=== PATIENT | male | born 1940 | race Caucasian/White ===

== ENCOUNTER → 2016-04-27 | Outpatient (REF) | payer MEDICARE, OTHER ==
[~2016-04-27] MED LIST: AMLO10TA2 PO; ASPI81CH PO; CIPR500T89 PO; DOXY100T16 PO; FOLI1TAB2 PO; HYDR-3713 PO; K-TA10TA2 PO; LEVA750T PO; LISI10TA4 PO; MAG400TA PO; MEMA1TAB2 PO; METF500T PO; MULT1TAB8 PO; MYSO50TA5 PO; OMEP20CA3 PO; SINE25TA5 PO; TYLE325T5 PO; VENL75TA2 PO; VENL75TA3 PO
== END ==
LOC: M SMT 16:48
PROVIDERS: ATTEND Nurse Practitioner Women's Health
DX: N39.0 Urinary tract infection, site not specified (principal)

== ENCOUNTER → 2016-07-16 | Outpatient (CLI) | payer MEDICARE, OTHER ==
--- NOTE | 2016-07-17 05:48 | REP ---
REASON: Followup carotid arterial disease. Comparison examination 04/14/2015 showed a 16-49% stenosis of the right internal carotid artery and a 0-15% stenosis in the left internal carotid artery. Once again, there is echogenic material seen in the carotid arteries some of which cast an acoustic shadow and seemingly unchanged from the prior exam. RIGHT LEFT CCA Systolic 100.0 100.9 CCA Diastolic 14.6 16.3 ICA Systolic 64.5 51.9 ICA Diastolic 14.8 14.1 ICA/CCA Ratio 0.65 0.51 Analysis of the spectral wave forms again shows mild to moderate bilateral internal carotid arterial spectral broadening. Antegrade flow is again seen in the left vertebral artery while the right vertebral artery is not visualized ultrasonographically. IMPRESSION: According to the NASCET consensus criteria, there is less than 50% stenosis in both internal carotid arteries secondary to both calcified and noncalcific plaque formation. There is nonvisualization of the right vertebral artery which represents a change from the prior exam and needs to be further evaluated. Consider bilateral carotid arterial MRA. If the patient is incompatible with MRA, then consider bilateral carotid CTA. Signed by Bryan Villegas DO 07/17/2016 01:59 P
== END ==
LOC: M RAD 11:46
PROVIDERS: ATTEND Nurse Practitioner
DX: I65.23 Occlusion and stenosis of bilateral carotid arteries (principal); Z95.828 Presence of other vascular implants and grafts; Z98.890 Other specified postprocedural states
CPT/HCPCS: 93880; G0463

== ENCOUNTER 2016-09-05 14:31 | Inpatient (IN) | payer MEDICARE, OTHER ==
[~2016-09-05] VITALS: Ht 190.5 cm; Wt 89.1 kg
[~2016-09-05 14:31] MED LIST changes: +CIPR-249 PO; -CIPR500T89 PO; -FOLI1TAB2 PO; +FOLI1TAB4 PO; -LEVA750T PO; +LEVA750T7 PO; -METF500T PO; +METF500T13 PO
[2016-09-05] MEDS ORDERED: ATOR40TA75 PO (14:55)
[2016-09-05] MEDS ORDERED: TELM1TAB PO (14:55)
[2016-09-05] MEDS ORDERED: SINE25TA5 PO (14:55)
[2016-09-05] MEDS ORDERED: FOLI1TAB4 PO (14:55)
[2016-09-05 15:51] LABS: ALBUMIN 3.1 GM/DL (3.2-5.2); ALBUMIN/GLOBULIN RATIO 0.84 (1.00-1.93); BILIRUBIN,DIRECT 0.4 MG/DL (0.0-0.2); CALCIUM LEVEL 8.2 MG/DL (8.8-10.2); CREATININE FOR GFR 2.54 MG/DL (0.70-1.30); GLOMERULAR FILTRATION RATE 26.3 (>42); TOTAL PROTEIN 6.8 GM/DL (6.4-8.2)
[2016-09-05 15:57] LABS: ADD MANUAL DIFFER YES; MEAN CORPUSCULAR HEMOGLOBIN 32.9 pg (27.0-33.0); MEAN CORPUSCULAR VOLUME 96.8 fl (80.0-96.0); PLATELET COUNT, AUTOMATED 175 k/mm3 (150-450); RED CELL DISTRIBUTION WIDTH 12.8 % (11.5-14.5); WHITE BLOOD COUNT 14.4 K/mm3 (4.0-10.0)
[2016-09-05 16:08] LABS: POTASSIUM SERUM 5.3 MEQ/L (3.5-5.1)
--- NOTE | 2016-09-05 16:12 | REP ---
Clinical: S I R S. Technique: AP and lateral views. Comparison: 04/06/2015. Findings: Diffuse chronic interstitial changes. Superimposed basilar atelectasis/infiltrate cannot be excluded along with small pleural reaction. Mediastinum and cardiac silhouette stable. No pneumothorax. Skeletal structures demonstrate degenerative changes. Impression: Chronic changes. Cannot exclude superimposed basilar atelectasis or small pleural reaction. Signed by Gavino Hancock MD 09/05/2016 04:04 P
[2016-09-05] MEDS ORDERED: NS 1,000 ML IV ONE (16:30)
[2016-09-05 16:51] LABS: BANDS 12 % (< 11)
[2016-09-05] MEDS: NS 1,000 ML IV SCH ×2 (17:21→23:35)
--- NOTE | 2016-09-05 17:32 | REP ---
Urinary tract sonography: History: Renal failure. Comparison CT study is from 03/01/2016. Sonographic findings: Scanning at the level of the urinary bladder demonstrates a Chung catheter noted. The balloon of the Chung catheter is positioned quite high, at or superiorly adjacent to the fundal region of the urinary bladder. It is difficult to confirm that the Chung balloon is intraluminal. There is some echogenic debris within the bladder lumen. Renal cortical echogenicity pattern is normal and renal contours are smooth on both sides. No hydronephrosis is seen on either side. The right kidney measures 9.5 x 5.0 x 4.4 cm. Left renal dimensions are 11.8 x 4.4 x 6.1 cm. No renal mass, cyst or calculus is appreciated. Impression: 1. No evidence of hydronephrosis. 2. The balloon of the Chung catheter is positioned quite high, at or superiorly adjacent to the fundal region of the urinary bladder. It is difficult to confirm that the Chung balloon is intraluminal. Echogenic debris within the bladder lumen. Signed by Shabbir Miller MD 09/05/2016 08:27 P
[2016-09-05] MEDS ORDERED: VITMTA PO (17:49)
[2016-09-05] MEDS ORDERED: LISI10TA4 PO (17:49)
[2016-09-05] MEDS ORDERED: AMLO10TA2 PO (17:49)
[2016-09-05] MEDS ORDERED: VENL75CA47 PO (17:49)
[2016-09-05] MEDS ORDERED: ASPI81TA24 PO (17:49)
[2016-09-05] MEDS ORDERED: CEFEPIME HCL 1 GM in D5W MINI-BAG PLUS 50 ML IV ONE (18:00)
[2016-09-05] MEDS ORDERED: DEXTROSE 50% 50 ML SYRINGE IV PRN (19:45)
[2016-09-05] MEDS ORDERED: VANCOMYCIN HCL 1,000 MG, VIAL MATE ADAPTER 1 EACH in D5W 250 ML IV ONE (20:00)
[2016-09-05] MEDS: HumaLOG INSULIN (NovoLOG) PER UNIT SC SCH (20:56)
[2016-09-05] MEDS: PRIMIDONE 50 MG TAB PO SCH (21:16)
[2016-09-05] MEDS: SINEMET 25-100 MG TAB PO SCH (21:17)
[2016-09-05] MEDS: HEPARIN SOD (PORCINE) 5000 UNITS/ML VIAL SC SCH (22:09)
[2016-09-06 03:20] VITALS: BP 153/79
[2016-09-06 05:24] LABS: BASO % 0.1 % (0.0-1.0); EOS % 0.4 % (0.0-3.0); LARGE UNSTAINED CELL # 0.2 K/mm3 (0.0-0.4); LARGE UNSTAINED CELL % 1.7 % (0.0-4.0); LYMPH # 0.4 K/mm3 (1.5-4.5); LYMPH % 2.1 % (24.0-44.0); MEAN CORPUSCULAR HEMOGLOBIN 33.7 pg (27.0-33.0); MEAN CORPUSCULAR HGB CONC 35.2 g/dl (32.0-36.5); MEAN CORPUSCULAR VOLUME 95.6 fl (80.0-96.0); MONO # 0.5 K/mm3 (0.0-0.8); MONO % 4.9 % (0.0-5.0); NEUTROPHILS # 10.1 K/mm3 (1.8-7.7); NEUTROPHILS % 90.8 % (36.0-66.0); PLATELET COUNT, AUTOMATED 118 k/mm3 (150-450); RED CELL DISTRIBUTION WIDTH 12.7 % (11.5-14.5); WHITE BLOOD COUNT 11.2 K/mm3 (4.0-10.0)
[2016-09-06 05:58] LABS: ALBUMIN 2.8 GM/DL (3.2-5.2); ALBUMIN/GLOBULIN RATIO 0.65 (1.00-1.93); BILIRUBIN,TOTAL 0.9 MG/DL (0.2-1.0); CALCIUM LEVEL 8.4 MG/DL (8.8-10.2); CREATININE FOR GFR 2.03 MG/DL (0.70-1.30); GLOMERULAR FILTRATION RATE 34.1 (>42); POTASSIUM SERUM 4.5 MEQ/L (3.5-5.1); TOTAL PROTEIN 7.1 GM/DL (6.4-8.2)
[2016-09-06] MEDS: HEPARIN SOD (PORCINE) 5000 UNITS/ML VIAL SC SCH ×3 (06:00→21:13)
[2016-09-06] MEDS: NS 1,000 ML IV SCH ×3 (06:20→21:11)
[2016-09-06] MEDS: ACETAMINOPHEN TAB 650MG DOSE (2X325MG) PO PRN ×2 (07:05→13:56)
--- NOTE | 2016-09-06 07:23 | HPE ---
DATE OF ADMISSION: 09/05/2016 PRIMARY CARE PROVIDER: Dr. Denton CHIEF COMPLAINT: Generalized weakness. HISTORY OF PRESENT ILLNESS: 75-year-old male with a history of sepsis and urinary tract infection (UTI) as well as urinary retention. He does self catheterizations daily. He was brought in by the family to be evaluated for progressive weakness. His son is at the bedside. He reports a few days history of malaise and progressive weakness to the point the patient was having difficulty standing and shaking significantly. There was no complaint of fever, nausea, vomiting, diarrhea, chest pain, palpitations, cough. REVIEW OF SYSTEMS: Ten point systems were assessed and negative except as listed above in history of present illness (HPI). PAST MEDICAL HISTORY (includes): 1. Non-insulin dependent diabetes mellitus. 2. Hypertension. 3. Parkinson's disease. 4. Dementia. 5. Urinary retention as mentioned above. 6. Urinary tract infection. 7. Atrial fibrillation, chronic. The patient is not anticoagulated due to history of altered mental status and unsteady gait. PAST SURGICAL HISTORY: 1. Hernia repair. 2. Left knee surgery. FAMILY HISTORY: The patient has three children, two living sons, one from testicular cancer. SOCIAL HISTORY: He does not smoke, abuse alcohol or illicit drug use. He is a , lost his this year in April 2016. He has been living alone since then, but has an aide that helps him with house chores and cooking. ALLERGIES TO MEDICATIONS: None. HOME MEDICATIONS (includes): - lisinopril 10 mg once a day - metformin 500 mg by mouth twice a day - potassium chloride 10 mEq once a day - venlafaxine 75 mg twice daily - memantine 10 mg by mouth twice a day - amlodipine 10 mg once a day - baby aspirin - carbidopa/levodopa 25/100 mg one tablet, he takes 1.5 tablets four times a day - multivitamin one tablet daily - omeprazole 20 mg once a day - primidone 50 mg twice a day PHYSICAL EXAMINATION: VITALS: Blood pressure 116/55. Pulse 82. Respiratory rate 18. Oxygen saturation 97% in room air. Temperature 98.8 degrees Fahrenheit. GENERAL: He is awake, slightly lethargic, but arousable. Able to communicate. Follows commends. He is cold and shivering, whole body shaking. HEENT: Pupils equal, round and reactive to light. Extraocular muscles intact. Anicteric sclerae. Mucous membranes dry. CARDIOVASCULAR SYSTEM: S1, S2 present with a regular rate. LUNGS: Clear to auscultation bilaterally. GI: Abdomen is soft, nontender, nondistended. Bowel sounds are normal. MUSCULOSKELETAL SYSTEM: No edema, cyanosis or calf tenderness. Pulses are palpable in all extremities. SKIN: Warm, dry and not cyanotic. Without rash, petechiae or ecchymosis. NEUROLOGY: Deferred. Patient is able to move his extremities. LABS: Hematology: White blood cell count 14.4, hemoglobin 13, hematocrit 37 and platelets 175. Bands of 12%. Chemistry: Sodium 129, potassium 5.3, chloride 97, bicarbonate 20, BUN 42, creatinine 2.54, fasting glucose 300, lactic acid initial 6.5 and repeat 4.3, calcium 8.2. Liver function tests (LFTs) within normal limits. CRP 25. Albumin 3.1. Urinalysis: Urine color luke, cloudy, +2 protein, negative glucose, trace ketones, +2 blood, negative nitrites, negative bilirubin, leukocyte esterase +2, WBC 116, RBC 3, bacteria 3+. IMAGING STUDIES: Chest x-ray shows just chronic changes. Renal ultrasound with no evidence of hydronephrosis noted. ASSESSMENT: 75-year-old male who presents with generalized weakness and showing signs of urine infection and blood infection as well as dehydration and impaired kidney function. IMPRESSION: 1. Sepsis. 2. Bandemia. 3. Cystitis. 4. Hyponatremia. 5. Mild hyperkalemia. 6. Acute tubular necrosis. 7. History of non-insulin dependent diabetes mellitus, uncontrolled. 8. History of Parkinson's and dementia. 9. History of urinary retention. PLAN: The patient is admitted to the progressive care unit (PCU). Continue antibiotics, Cefepime and vancomycin. Pharmacy consulted for vancomycin management. Continue hydration, saline at 150 mL an hour. Nephrology consulted for the a.m. Awaiting culture results. The patient has a Chung placed to monitor ins and outs. Home medications are resumed except for lisinopril, metformin. Follows lytes levels in a.m. Deep vein thrombosis (DVT) prophylaxis with compression stockings and subcutaneous heparin.
[2016-09-06 08:00] VITALS: BP 133/64
[2016-09-06 08:08] LABS: VENOUS BASE EXCESS -6.4 (-2.0-2.0); VENOUS O2 SATURATION 99.1 % (60.0-80.0); VENOUS PARTIAL PRESSURE CO2 22.2 mmHg (38.0-50.0); VENOUS PARTIAL PRESSURE O2 154.1 mmHg (30.0-50.0); VENOUS STANDARD HCO3 19.3 MEQ/L; VENOUS TOTAL CO2 16.3 MEQ/L (24.0-28.0)
[2016-09-06] MEDS: MULTIVITAMINS/MINERALS THERAP 1 TAB PO SCH (08:09)
[2016-09-06] MEDS: ASPIRIN 81 MG ENTERIC TAB PO SCH (08:09)
[2016-09-06] MEDS: PRIMIDONE 50 MG TAB PO SCH ×2 (08:09→21:11)
[2016-09-06] MEDS: OMEPRAZOLE 20 MG CAP PO SCH (08:09)
[2016-09-06] MEDS: SINEMET 25-100 MG TAB PO SCH ×4 (08:09→21:11)
[2016-09-06] MEDS: amLODIPine 10 MG TAB PO SCH (08:10)
[2016-09-06] MEDS: HumaLOG INSULIN (NovoLOG) PER UNIT SC SCH ×4 (08:11→21:00)
[2016-09-06] MEDS ORDERED: CEFEPIME HCL 1 GM in D5W MINI-BAG PLUS 50 ML IV SCH (09:00)
[2016-09-06 12:00] VITALS: BP 151/70
--- NOTE | 2016-09-06 14:33 | IPNPDOC ---
Text Note Date of Service The patient was seen on 09/06/16. NOTE Subjective: Patient is awake and alert. Follows commands. States he feels much better. Denies any chest pain/hospital/palpitations. No nausea/vomiting/ abdominal pain. Objective: Vitals: (see below) General: No acute distress, laying comfortably in bed. HEENT: Moist mucous membranes. Neck: No JVD or lymphadenopathy Cardiac: RRR, No murmurs Pulm: Clear to auscultation b/l. No wheezing, rhonchi Abd: NT/ND + BS Ext: No edema or cyanosis Alert and oriented 3. Following commands. Moving all extremities. Labs (see below) Images: Assessment/Plan 1. Severe sepsis secondary to urinary source from self-catheterization. Patient with gram-negative heide bacteremia. Presenting with metabolic encephalopathy and as a generalized weakness. The patient was also noted to have leukocytosis, bandemia, lactic acid doses of 6, which is trending down to 1.8. We'll continue broad-spectrum antibiotics pending cultures and IV fluids. Repeat blood cultures tomorrow. 2. Hyponatremia- likely hypovolemic from being septic. Improved with IV fluids. 3. Hyperkalemia- improved. 4. Acute kidney injury- likely secondary to #1. Improving with IV fluids. 5. Nzg-jtavdvq-lchmntudq diabetes mellitus- continue sliding scale insulin 6. History of Parkinson's disease and dementia 7. History of urinary retention and UTIs - self catheterizes. Started on Flomax DVT prophy: Heparin subcutaneous Prognosis guarded. I discussed the above with the patient's son Jose Raul. Patient is a DNR. VS,Heather, I+O VS, Heather, I+O Laboratory Tests 09/05/16 14:50 Red Blood Count 3.85 L, Mean Corpuscular Volume 96.8 H, Mean Corpuscular Hemoglobin 32.9, Mean Corpuscular Hemoglobin Concent 34.0, Red Cell Distribution Width 12.8 09/06/16 04:45 Red Blood Count 3.76 L, Mean Corpuscular Volume 95.6, Mean Corpuscular Hemoglobin 33.7 H, Mean Corpuscular Hemoglobin Concent 35.2, Red Cell Distribution Width 12.7, Neutrophils (%) (Auto) 90.8 H, Lymphocytes (%) (Auto) 2.1 L, Monocytes (%) (Auto) 4.9, Eosinophils (%) (Auto) 0.4, Basophils (%) (Auto ) 0.1, Neutrophils # (Auto) 10.1 H, Lymphocytes # (Auto) 0.4 L, Monocytes # ( Auto) 0.5, Eosinophils # (Auto) 0.0, Basophils # (Auto) 0.0, Calcium Level 8.4 L , Aspartate Amino Transf (AST/SGOT) 50 H, Alanine Aminotransferase (ALT/SGPT) 8 L, Alkaline Phosphatase 99, Total Bilirubin 0.9, Total Protein 7.1, Albumin 2.8 L Vital Signs Date Time Temp Pulse Resp B/P (MAP) Pulse Ox O2 Delivery O2 Flow Rate FiO2 09/06/16 12:00 98.8 107 20 151/70 (97) 96 Room Air I&O- Last 24 Hours up to 6 AM 09/06/16 05:59 Intake Total 1320 ml Output Total 2250 ml Balance -930 ml VINCENT SHAFER MD Sep 06, 2016 14:33
[2016-09-06 16:00] VITALS: BP 132/70
[2016-09-06] MEDS: TAMSULOSIN 0.4 MG CAP PO SCH (17:27)
--- NOTE | 2016-09-06 19:15 | CR ---
DATE OF CONSULTATION: 09/06/2016 REQUESTING PHYSICIAN: Dr. Navneet Ríos CONSULTING PHYSICIAN: Dr. Montemayor REASON FOR CONSULTATION: Management of acute renal failure and hyponatremia. CHIEF COMPLAINT: The patient was brought into the emergency room yesterday because of generalized weakness. HISTORY OF PRESENT ILLNESS: Mr. Ja Aguilar is a 75-year-old male with a past medical history of most likely chronic kidney disease stage 3. He had a baseline creatinine of around 1 as of February 2016. He has a history of Parkinson's disease and urinary retention. He has to self catheterize himself daily for urinary retention. Patient was brought in by his family for progressive weakness, lethargy, confusion, decreased oral intake, inability to walk and shaking. Patient was found to have acute renal failure yesterday with a creatine of 2.5 and sepsis along with lactic acidosis which as attributed to urinary tract infection. Patient was given broad spectrum antibiotics. He was started on IV fluid hydration. Initial blood cultures came back positive for gram negative rods. Nephrology service was called for further help in the management of acute renal failure and multiple electrolyte abnormalities. PAST MEDICAL HISTORY: Chronic kidney disease stage 3, baseline creatinine of 1, hypertension, Parkinson's disease, non-insulin dependent diabetes mellitus, dementia, chronic urinary retention, requiring daily catheterization, history of urinary track infection in the past, chronic atrial fibrillation not on anticoagulation. PAST SURGICAL HISTORY: History of hernia repair, history of left knee surgery. ALLERGIES: No known drug allergies. FAMILY HISTORY: No significant family history of end stage renal disease requiring hemodialysis. SOCIAL HISTORY: Patient lives alone but he has a home health aide that helps him with activities of daily life. There is no history of smoking, elicit drug abuse, or alcohol abuse. REVIEW OF SYSTEMS: CONSTITUTIONAL: Patient denies any fevers or chills but he reports weakness. EYES: He denies any blurry vision or double vision. ENT: He denies any dysphagia or wear discharge. CARDIOVASCULAR: He denies any chest pain or palpitations. RESPIRATORY: He denies any cough or shortness of breath. GI: He denies any pain in the abdomen, constipation or diarrhea. GENITOURINARY: He reports urinary retention and requires daily Chung catheterization. MUSCULOSKELETAL: He denies any muscle aches and pain. CENTRAL NERVOUS SYSTEM: He reports history of Parkinson's disease. HEMATOLOGY/ONCOLOGY: HE denies any history of anemia or easy bruising. SKIN: He denies any rashes or ulcers. All of the review of system is found to be negative. PHYSICAL EXAMINATION: GENERAL: Patient is awake, alert, and oriented times two, laying in bed. No apparent distress. VITAL SIGNS: Temperature 98.5 degree Fahrenheit, blood pressure 133/64, pulse 111, respiratory rate 20, saturating 93% on room air. HEAD AND NECK: Extraocular muscles intact. Pupils equally round and reactive to light. Mucous membranes are slightly dry. NECK: Supple with no jugular venous distension (JVD). CARDIOVASCULAR: S1, S2, irregularly irregular heart rate. No murmur, rub, or gallop. RESPIRATORY: Chest clear to auscultation bilaterally. Bilateral equal air entry, no rales or rhonchi. GI: Abdomen is soft, positive bowel sounds, nontender, no ascites, no organomegaly. GENITOURINARY: Patient has an indwelling Chung catheter at this time with kaia pus int Chung along with urine. MUSCULOSKELETAL: Pulses are 2+ in the periphery. No edema of the bilateral lower extremities. CENTRAL NERVOUS SYSTEM: Patient is oriented times two. He follows commands and moves his extremities. SKIN: No rashes or ulcers. LYMPH: No significant cervical or inguinal lymphadenopathy. LAB REVIEW: CBC showed a WBC of 11.2 today, it was 14.4 yesterday, hemoglobin 12.7, platelets 118. Urinalysis done yesterday showed it was cloudy, 2+ leukocyte esterase, 116 WBC, 3+ bacteria, ABG done today morning showed a pH 7.46, PCO2 22, PO2 154, bicarbonate 15.6, oxygen saturation 99%. BMP this morning showed sodium 135, it was 129 yesterday, potassium 4.5, chloride 103, bicarbonate 21, BUN 43, creatinine 2.03, glucose 138, lactate has improved to 1.8. It was 6.5 yesterday, albumin 2.8. Microbiology: Blood cultures 2/2 are growing gram negative rods. Urine culture is pending. IMAGING: A renal ultrasound done yesterday showed no evidence of hydronephrosis. Chest x-ray done yesterday showed chronic changes with some basilar atelectasis. CURRENT INPATIENT MEDICATIONS: Patients medications were all reviewed by me that includes: - cefepime 1 gram IV daily - normal saline, I changed the rate to 125 mL per hour - vancomycin 1 gram IV given yesterday - amlodipine 10 mg daily - aspirin 81 mg daily - heparin 5,000 unit every 8 hours - insulin sliding scale - multivitamin - omeprazole 20 mg by mouth daily - Mysoline 50 mg twice a day - Flomax 0.4 mg by mouth daily ASSESSMENT: 75-year-old female with sepsis secondary to urinary tract infection, gram negative heide bacteremia, acute kidney injury along with hyponatremia, and hyperkalemia. PLAN: 1. Acute renal failure. Patients baseline creatinine is 1. Acute renal failure secondary to a combination of use of lisinopril and metformin at home in the setting of sepsis. Continue to hold the lisinopril and metformin. Continue IV fluid hydration. Creatinine is trending down. Patient has a good urine output. Continue to monitor for improvement of renal function. No need of hemodialysis at this time. 2. Sepsis secondary to urinary tract infection and gram negative heide bacteremia. Patient is hemodynamically stable. Lactic acidosis has improved. Continue IV cefepime. Patient was also given one dose of vancomycin yesterday. Will follow up the culture sensitivity and taper down the antibiotics as needed. 3. Hyponatremia. It is hypovolemic hyponatremia. Continue IV fluid hydration. Sodium level is improved from 129 to 135. 4. Hyperkalemia. Potassium level is improving to 4.5 today. Hyperkalemia was secondary to acute renal failure use of lisinopril and hypertension. 5. Lactic acidosis. It was secondary to sepsis and use of Metformin before presentation to the hospital. Metformin is on hold. Patient is adequately hydrated. Lactic acidosis has improved. 6. Chronic urinary retention. Continue the Chung catheter at this time. Continue Flomax 0.4 mg by mouth daily. 7. Parkinson's disease. Continue home dose of Sinemet 1.5 tablet by mouth four times a day. 8. Hypertension. Blood pressure is acceptable at this time. Lisinopril is on hold. Patient has been restarted on amlodipine 10 mg by mouth daily. Thank you for involving us in the care of this patient. We shall be happy to follow the patient along with you tomorrow morning.
[2016-09-06 20:00] VITALS: BP 120/78
[2016-09-06 20:30] VITALS: BP 152/67
[2016-09-06] MEDS: CEFEPIME HCL 1 GM in D5W MINI-BAG PLUS 50 ML IV SCH (22:46)
[2016-09-07] VITALS (7 sets, daily range): BP systolic 106–156; BP diastolic 61–80
[2016-09-07] MEDS: NS 1,000 ML IV SCH ×2 (02:34→10:45)
--- NOTE | 2016-09-07 05:28 | CR ---
DATE OF CONSULTATION: 09/06/2016 REASON FOR CONSULTATION: I was asked to consult by hospitalist evaluation of sepsis of urinary origin. HISTORY OF PRESENT ILLNESS: Mr. Aguilar is a pleasant 75-year-old gentleman who lives alone with help of his son. The patient has a history of urinary retention and straight catheterizes (caths) himself twice a day. He was brought in by his him who noticed that he had been confused with generalized weakness. He had been having a couple days of malaise, difficulty standing, and significantly shaking. He did not have any fever, nausea, vomiting, diarrhea, abdominal pain, chest pain or palpitations. His sons are concerned whether he is doing a good job doing his own straight cath as he is getting older and whether he does his proper hand hygiene. PAST MEDICAL HISTORY: Significant diabetes, hypertension, Parkinson's disease, dementia, urinary retention, urinary tract infection recent admission was in February with culture positive for Staphylococcus epidermidis, chronic atrial fibrillation not on anticoagulation due to mental status changes and unsteady gait. PAST SURGICAL HISTORY: Hernia repair, left knee surgery. FAMILY HISTORY: Son had testicular cancer. SOCIAL HISTORY: Does not smoke or use alcohol. He is a . He lost his in April 2016. He does not drive. His two sons are available to help him. He has Katja dacosta, who helps him with house chores and cooking. ALLERGIES: None. MEDICATIONS: - cefepime 1 gram intravenous (IV) daily - amlodipine 10 mg by mouth daily - aspirin 81 mg by mouth daily - multivitamin one tablet daily - omeprazole 20 mg daily - Flomax 0.4 mg by mouth daily - Humalog sliding scale - Sinemet 25/100 tablets by mouth four times a day - Mysoline 50 mg by mouth twice a day - Tylenol as needed LABORATORY DATA: White count was 14.4 yesterday, today 11.2, hemoglobin 12.7, hematocrit 36, platelets 118, 90% neutrophils, 2% lymphocytes, 4% monocytes. Sodium 135, potassium 4.5, chloride 103, bicarb 21, BUN 43, creatinine 2.03 down from 2.54. His normal creatinine is within normal range, glucose 138, lactic acid down to 1.8 from 6.5 on admission, calcium 8.4, magnesium 0.9, AST 50, ALT 80, alkaline phosphatase 99, total protein 7.1, albumin 2.8. MICROBIOLOGY: Urine cultures pending. Blood cultures have gram-negative rods. IMAGING: Renal ultrasound showed no evidence of hydronephrosis but the balloon of the catheter was positioned quite high and needed to be repositioned. PHYSICAL EXAMINATION: On physical exam, elderly gentleman in no acute distress. Alert, oriented with a little lethargic compared to his baseline. HEART: Normal S1, S2. Irregularly irregular. No murmurs, rubs or gallops appreciated. LUNGS: Clear. No wheezes, rale or rhonchi. ABDOMEN: Soft, nontender. No hepatosplenomegaly. GENITOURINARY (): He has an indwelling Chung catheter with cloudy urine. HEENT: Pupils equal and react. Sclerae anicteric. Mucous membranes are dry. EXTREMITIES: No clubbing, cyanosis or edema. +1 dorsalis pedis pulses. CENTRAL NERVOUS SYSTEM (HANSARD REPORTER): He is oriented times three. Follows commands. SKIN: With rashes. He has some scabs on the toes. IMPRESSION: This is a 75-year-old gentleman who was admitted with sepsis of urinary tract origin. He has gram-negative bacteremia. He is currently on cefepime and has markedly improved. He has developed acute renal failure probably a combination of dehydration and sepsis. The patient has clinically improved. Will plan to de-escalate his therapy based on results of urine culture and blood cultures tomorrow. PLAN: Continue IV cefepime tomorrow until results of culture available. Tomorrow will de-escalate therapy and adjust based on improving creatinine as well. He is currently at the dose of 1 gram every 24 hours for a glomerular filtration rate (GFR) of 26, I would suggest increasing his dose to every 12 hours. MTDD
[2016-09-07 05:42] LABS: BASO % 0.2 % (0.0-1.0); EOS % 0.3 % (0.0-3.0); LARGE UNSTAINED CELL # 0.2 K/mm3 (0.0-0.4); LARGE UNSTAINED CELL % 1.9 % (0.0-4.0); LYMPH # 0.4 K/mm3 (1.5-4.5); LYMPH % 3.2 % (24.0-44.0); MEAN CORPUSCULAR HEMOGLOBIN 32.5 pg (27.0-33.0); MEAN CORPUSCULAR HGB CONC 34.3 g/dl (32.0-36.5); MEAN CORPUSCULAR VOLUME 94.6 fl (80.0-96.0); MONO # 0.4 K/mm3 (0.0-0.8); MONO % 4.8 % (0.0-5.0); NEUTROPHILS # 7.4 K/mm3 (1.8-7.7); NEUTROPHILS % 89.6 % (36.0-66.0); PLATELET COUNT, AUTOMATED 113 k/mm3 (150-450); RED CELL DISTRIBUTION WIDTH 12.9 % (11.5-14.5); WHITE BLOOD COUNT 8.3 K/mm3 (4.0-10.0)
[2016-09-07] MEDS: HEPARIN SOD (PORCINE) 5000 UNITS/ML VIAL SC SCH ×3 (05:54→21:00)
[2016-09-07 06:53] LABS: ALBUMIN 2.4 GM/DL (3.2-5.2); ALBUMIN/GLOBULIN RATIO 0.71 (1.00-1.93); BILIRUBIN,TOTAL 0.6 MG/DL (0.2-1.0); CALCIUM LEVEL 7.4 MG/DL (8.8-10.2); CREATININE FOR GFR 1.73 MG/DL (0.70-1.30); POTASSIUM SERUM 3.9 MEQ/L (3.5-5.1); TOTAL PROTEIN 5.8 GM/DL (6.4-8.2)
[2016-09-07] MEDS: SINEMET 25-100 MG TAB PO SCH ×4 (07:43→21:00)
[2016-09-07] MEDS: ACETAMINOPHEN TAB 650MG DOSE (2X325MG) PO PRN (07:43)
[2016-09-07] MEDS: CEFEPIME HCL 1 GM in D5W MINI-BAG PLUS 50 ML IV SCH (07:43)
[2016-09-07] MEDS: TAMSULOSIN 0.4 MG CAP PO SCH (07:44)
[2016-09-07] MEDS: OMEPRAZOLE 20 MG CAP PO SCH (07:44)
[2016-09-07] MEDS: HumaLOG INSULIN (NovoLOG) PER UNIT SC SCH ×4 (07:44→21:05)
[2016-09-07] MEDS: ASPIRIN 81 MG ENTERIC TAB PO SCH (07:44)
[2016-09-07] MEDS: PRIMIDONE 50 MG TAB PO SCH ×2 (07:45→21:00)
[2016-09-07] MEDS: MULTIVITAMINS/MINERALS THERAP 1 TAB PO SCH (07:45)
[2016-09-07] MEDS: amLODIPine 10 MG TAB PO SCH (07:48)
[2016-09-07] MEDS ORDERED: cefTRIAXone SOD 2 GM in D5W MINI-BAG PLUS 50 ML IV SCH (09:00)
[2016-09-07 09:12] LABS: VENOUS O2 SATURATION 98.4 % (60.0-80.0); VENOUS PARTIAL PRESSURE CO2 27.7 mmHg (38.0-50.0); VENOUS STANDARD HCO3 20.3 MEQ/L; VENOUS TOTAL CO2 18.9 MEQ/L (24.0-28.0)
[2016-09-07 10:49] LABS: MAGNESIUM LEVEL 1.8 MG/DL (1.8-2.4); PHOSPHORUS LEVEL 2.4 MG/DL (2.5-4.9)
[2016-09-07] MEDS: BICITRA 30ML SOLN UDC PO SCH ×2 (12:18→21:00)
--- NOTE | 2016-09-07 14:49 | IPNPDOC ---
Text Note Date of Service The patient was seen on 09/07/16. NOTE Subjective: Pt feels well. Denies any complaints. Objective: Vitals: (see below) General: No acute distress, laying comfortably in bed. HEENT: Moist mucous membranes. Neck: No JVD or lymphadenopathy Cardiac: RRR, No murmurs Pulm: Clear to auscultation b/l. No wheezing, rhonchi Abd: NT/ND + BS Ext: No edema or cyanosis Alert and oriented 3. Following commands. Moving all extremities. Labs (see below) Images: Assessment/Plan 1. Severe sepsis secondary to urinary source from self-catheterization. Patient with gram-negative heide bacteremia. Presenting with metabolic encephalopathy and as a generalized weakness. The patient was also noted to have leukocytosis, bandemia, lactic acid doses of 6, which is trending down to 1.8. Urine cx with E.Coli. Cefepime changed to rocephin. On IV fluids.Blood cultures pending. 2. Hyponatremia- likely hypovolemic from being septic. Improved with IV fluids. 3. Hyperkalemia- improved. 4. Acute kidney injury- likely secondary to #1. Improving with IV fluids. 5. Nvy-lnjsvkh-pisjaungc diabetes mellitus- continue sliding scale insulin 6. History of Parkinson's disease and dementia 7. History of urinary retention and UTIs - self catheterizes. Started on Flomax DVT prophy: Heparin subcutaneous Prognosis guarded. I discussed the above with the patient's son Jose Raul. Patient is a DNR. VS,Heather, I+O VS, Heather, I+O Laboratory Tests 09/07/16 05:11 Red Blood Count 3.41 L, Mean Corpuscular Volume 94.6, Mean Corpuscular Hemoglobin 32.5, Mean Corpuscular Hemoglobin Concent 34.3, Red Cell Distribution Width 12.9, Neutrophils (%) (Auto) 89.6 H, Lymphocytes (%) (Auto) 3.2 L, Monocytes (%) (Auto) 4.8, Eosinophils (%) (Auto) 0.3, Basophils (%) (Auto ) 0.2, Neutrophils # (Auto) 7.4, Lymphocytes # (Auto) 0.4 L, Monocytes # (Auto) 0.4, Eosinophils # (Auto) 0.0, Basophils # (Auto) 0.0, Calcium Level 7.4 L, Phosphorus Level 2.4 L, Aspartate Amino Transf (AST/SGOT) 47 H, Alanine Aminotransferase (ALT/SGPT) 6 L, Alkaline Phosphatase 87, Total Bilirubin 0.6, Total Protein 5.8 L, Albumin 2.4 L Vital Signs Date Time Temp Pulse Resp B/P (MAP) Pulse Ox O2 Delivery O2 Flow Rate FiO2 09/07/16 11:45 97.4 76 20 139/71 (93) 94 Room Air I&O- Last 24 Hours up to 6 AM 09/07/16 06:00 Intake Total 4995 ml Output Total 1525 ml Balance 3470 ml VINCENT SHAFER MD Sep 07, 2016 14:49
--- NOTE | 2016-09-07 17:05 | IPN ---
DATE: 09/07/2016 Mr. Aguilar is taking a nap this afternoon. He has no complaints. No nausea, vomiting or diarrhea. No abdominal pain. He states he got out of bed today. He had a good lunch. He had at temperature overnight that has resolved this morning. Maximum temperature (t-max) was 100.7, currently 97.4. HEART: Normal S1, S2. No murmurs. LUNGS: Clear. No wheezes or rhonchi. ABDOMEN: Soft, nontender. EXTREMITIES: Trace edema. GENITOURINARY: He has a Chung catheter. Urine is much more clear. White count is 8.3, down from 14.4, hemoglobin 11.1, hematocrit 32.2, platelets 113, 89% neutrophils, 3% lymphocytes, 4% monocytes. Sodium 133, potassium 3.9, chloride 103, bicarbonate 20, BUN 42, creatinine 1.73, glucose 110, calcium 7.4, phosphorus 2.4, AST 47, ALT 6. Urine culture was positive for Escherichia (E) coli and sensitive to all tested antibiotics, including ampicillin, Bactrim and quinolones. Blood cultures, gram negative rods still not identified. IMPRESSION: 1. Sepsis of urinary origin with E-coli on urine culture and probably blood cultures as well. The patient is on IV Rocephin and doing well. 2. Parkinson's disease. 3. Urinary retention. The patient self catheterizes himself and there was concern whether he was doing well. This needs to be further observed by nursing and he only self catheterizes twice a day. PLAN: Continue IV Rocephin. Once the patient is afebrile in the next 24 to 48 hours, he could be de-escalated to oral cephalexin or cefdinir to finish a 10-day treatment. Dr. Bhatia signing off.
[2016-09-07] MEDS: cefTRIAXone SOD 2 GM in D5W MINI-BAG PLUS 50 ML IV SCH (21:05)
[2016-09-08] VITALS: BP 147/77
[2016-09-08] MEDS: NS 1,000 ML IV SCH (00:26)
[2016-09-08 04:00] VITALS: BP 151/72
[2016-09-08 05:28] LABS: BASO % 0.3 % (0.0-1.0); EOS # 0.1 K/mm3 (0.0-0.50); EOS % 0.9 % (0.0-3.0); LARGE UNSTAINED CELL # 0.2 K/mm3 (0.0-0.4); LARGE UNSTAINED CELL % 2.1 % (0.0-4.0); LYMPH # 0.5 K/mm3 (1.5-4.5); LYMPH % 3.4 % (24.0-44.0); MEAN CORPUSCULAR HEMOGLOBIN 32.1 pg (27.0-33.0); MEAN CORPUSCULAR HGB CONC 34.2 g/dl (32.0-36.5); MEAN CORPUSCULAR VOLUME 93.8 fl (80.0-96.0); MONO # 0.5 K/mm3 (0.0-0.8); MONO % 5.6 % (0.0-5.0); NEUTROPHILS # 7.8 K/mm3 (1.8-7.7); NEUTROPHILS % 87.6 % (36.0-66.0); PLATELET COUNT, AUTOMATED 114 k/mm3 (150-450); RED CELL DISTRIBUTION WIDTH 12.8 % (11.5-14.5); WHITE BLOOD COUNT 8.9 K/mm3 (4.0-10.0)
[2016-09-08] MEDS: HEPARIN SOD (PORCINE) 5000 UNITS/ML VIAL SC SCH ×3 (05:37→21:19)
[2016-09-08 05:50] LABS: ALBUMIN 2.4 GM/DL (3.2-5.2); ALBUMIN/GLOBULIN RATIO 0.62 (1.00-1.93); ALKALINE PHOSPHATASE 116 U/L (45-117); ALT/SGPT < 6 U/L (12-78); ANION GAP 9 MEQ/L (8-16); AST/SGOT 42 U/L (15-37); BILIRUBIN,TOTAL 0.6 MG/DL (0.2-1.0); BLOOD UREA NITROGEN 38 MG/DL (7-18); CALCIUM LEVEL 7.6 MG/DL (8.8-10.2); CARBON DIOXIDE LEVEL 20 MEQ/L (21-32); CHLORIDE LEVEL 102 MEQ/L (98-107); CREATININE FOR GFR 1.41 MG/DL (0.70-1.30); GLOMERULAR FILTRATION RATE 51.9 (>42); GLUCOSE, FASTING 131 MG/DL (83-110); POTASSIUM SERUM 3.3 MEQ/L (3.5-5.1); SODIUM LEVEL 131 MEQ/L (136-145); TOTAL PROTEIN 6.3 GM/DL (6.4-8.2)
--- NOTE | 2016-09-08 06:30 | IPN ---
DATE OF SERVICE: 09/07/2016 SUBJECTIVE: Patient was seen and examined at the bedside today in the morning. Patient still is slightly obtunded, but he is able to communicate and follow commands. Patient's renal function continues to improve. He has a good urine output at this time. REVIEW OF SYSTEMS: Patient is unable to provide any reliable review of systems to me at this time. OBJECTIVE: VITAL SIGNS: When I saw the patient in the morning his temperature was 97.4 degrees Fahrenheit, blood pressure 139/71, pulse 76. Respiratory rate of 20, saturating 94% on room air. INTAKE AND OUTPUT: Urine output recorded as 2225 mL yesterday, 1850 mL so far today. Weight on the bed scale is 86.5 kg. Patient is in 2 liter positive fluid balance so far since overnight. PHYSICAL EXAMINATION: GENERAL: Patient is awake, alert, oriented times two, lying in bed, no apparent distress. HEAD AND NECK EXAM: Extraocular muscles intact. Pupils equally round and reactive to light. Mucous membranes are dry. Neck is supple. There is slightly elevated jugular venous distention (JVD). CARDIOVASCULAR: S1, S2, irregularly irregular heart rate. No murmur, rub or gallop. RESPIRATORY: Chest is clear to auscultation bilaterally. Bilateral equal air entry. No rales or rhonchi. GASTROINTESTINAL: Abdomen is soft, positive bowel sounds, nontender. No ascites. No organomegaly. GENITOURINARY: Patient has an indwelling Chung catheter and urine in the Chung catheter is getting more clear now. MUSCULOSKELETAL: Pulses are 2+ in the peripheries. No edema of the bilateral lower extremities. CENTRAL NERVOUS SYSTEM: Patient is oriented times two. He follows commands and moves his extremities. SKIN: No rashes or ulcers. LABORATORY REVIEW: CBC showed a WBC 8.3, hemoglobin 11.1, platelets are 113. BMP showed sodium 133, potassium 3.9, chloride 103, bicarbonate 20, BUN 42, creatinine 1.7, it was 2.0 yesterday. Phosphorus is 2.4, calcium 7.4, magnesium 1.8. Microbiology: Urine culture is positive for Escherichia (E) coli. CURRENT INPATIENT MEDICATIONS: Patient's medications were all reviewed by me. Intravenous (IV) cefepime has been stopped. Patient has been started on IV ceftriaxone 2 grams every 24 hours. I have changed his IV fluid rate to normal saline at 75 mL/h. Amlodipine has been stopped at this time. I have started the patient on Bicitra 15 mL by mouth twice a day. There is no other change in the medications today as compared with yesterday. ASSESSMENT: 75-year-old male with sepsis secondary to urinary tract infection, gram-negative heide bacteremia and acute kidney injury along with hyponatremia and hypokalemia. PLAN: 1. Acute renal failure. Patient's baseline creatinine is 1. Acute renal failure is secondary to combination of sepsis, bacteremia, urinary tract infection, lisinopril and metformin. Continue intravenous (IV) fluid hydration at this time. Continue to hold lisinopril and metformin. Renal function is improving. Creatinine is down to 1.7 now. 2. Sepsis secondary to Escherichia (E) coli urinary tract infection and possible E. coli bacteremia as well. Patient is hemodynamically stable at this time. I have decreased the IV fluid rate to 75 mL/h because he was in positive fluid balance for the last 2 days. Antibiotic has been changed to ceftriaxone because of culture sensitivity reports. 3. Hyponatremia. It is likely hypovolemic hyponatremia. Sodium is 133. Continue the IV fluid hydration at this time. 4. Hypertension. Patient's blood pressure is acceptable at this time. Okay to use amlodipine as needed. 5. Metabolic acidosis. Patient has been started on Bicitra 15 mL by mouth twice a day.
[2016-09-08 07:20] VITALS: BP 148/83
[2016-09-08] MEDS ORDERED: POTASSIUM CHLORIDE 10 MEQ SR TABLET PO ONE ×2 (08:00→15:00)
[2016-09-08] MEDS: HumaLOG INSULIN (NovoLOG) PER UNIT SC SCH ×4 (08:41→21:41)
[2016-09-08] MEDS: SINEMET 25-100 MG TAB PO SCH ×4 (08:42→21:19)
[2016-09-08] MEDS: BICITRA 30ML SOLN UDC PO SCH (08:42)
[2016-09-08] MEDS: ASPIRIN 81 MG ENTERIC TAB PO SCH (08:42)
[2016-09-08] MEDS: PRIMIDONE 50 MG TAB PO SCH ×2 (08:42→21:19)
[2016-09-08] MEDS: OMEPRAZOLE 20 MG CAP PO SCH (08:42)
[2016-09-08] MEDS: TAMSULOSIN 0.4 MG CAP PO SCH (08:43)
[2016-09-08] MEDS: MULTIVITAMINS/MINERALS THERAP 1 TAB PO SCH (08:43)
[2016-09-08] MEDS: SODIUM CHLORIDE 1 GM TAB PO SCH ×3 (09:00→21:19)
--- NOTE | 2016-09-08 09:38 | IPNPDOC ---
Text Note Date of Service The patient was seen on 09/08/16. NOTE Subjective: Pt feels well. Tearful and wants to go home. Mildly confused about the date. No CP/SOB/Palpitations. Objective: Vitals: (see below) General: No acute distress, laying comfortably in bed. HEENT: Moist mucous membranes. Neck: No JVD or lymphadenopathy Cardiac: RRR, No murmurs Pulm: Clear to auscultation b/l. No wheezing, rhonchi Abd: NT/ND + BS Ext: No edema or cyanosis Alert and oriented 2. person and place. Following commands. Moving all extremities. Labs (see below) Images: Assessment/Plan 1. Severe sepsis secondary to urinary source from self-catheterization. Patient with gram-negative heide bacteremia. Presenting with metabolic encephalopathy and as a generalized weakness. The patient was also noted to have leukocytosis, bandemia, lactic acid doses of 6, which is trending down to 1.8. Urine cx with E.Coli. Cefepime changed to rocephin. On IV fluids.Blood cultures pending. 2. Delirium - confused about date and time. tearful and wants to go home. No neurologic deficits. Will continue to observe. 3. Hyperkalemia- improved. 4. Acute kidney injury- likely secondary to #1. Improving with IV fluids. 5. Tcl-pzfpzpq-koycfgroq diabetes mellitus- continue sliding scale insulin 6. History of Parkinson's disease and dementia 7. History of urinary retention and UTIs - self catheterizes. Started on Flomax 8. Hyponatremia- likely hypovolemic from being septic. Improved with IV fluids. DVT prophy: Heparin subcutaneous Prognosis guarded. VS,Fishbone, I+O VS, Fishbone, I+O Laboratory Tests 09/08/16 05:05 Red Blood Count 3.48 L, Mean Corpuscular Volume 93.8, Mean Corpuscular Hemoglobin 32.1, Mean Corpuscular Hemoglobin Concent 34.2, Red Cell Distribution Width 12.8, Neutrophils (%) (Auto) 87.6 H, Lymphocytes (%) (Auto) 3.4 L, Monocytes (%) (Auto) 5.6 H, Eosinophils (%) (Auto) 0.9, Basophils (%) ( Auto) 0.3, Neutrophils # (Auto) 7.8 H, Lymphocytes # (Auto) 0.5 L, Monocytes # ( Auto) 0.5, Eosinophils # (Auto) 0.1, Basophils # (Auto) 0.0, Calcium Level 7.6 L , Aspartate Amino Transf (AST/SGOT) 42 H, Alanine Aminotransferase (ALT/SGPT) < 6 L, Alkaline Phosphatase 116, Total Bilirubin 0.6, Total Protein 6.3 L, Albumin 2.4 L Vital Signs Date Time Temp Pulse Resp B/P (MAP) Pulse Ox O2 Delivery O2 Flow Rate FiO2 09/08/16 07:20 98.9 111 20 148/83 (104) 98 Room Air I&O- Last 24 Hours up to 6 AM 09/08/16 06:00 Intake Total 4535 ml Output Total 2050 ml Balance 2485 ml VNICENT SHAFER MD Sep 08, 2016 09:38
[2016-09-08 12:00] VITALS: BP 116/63
--- NOTE | 2016-09-08 14:52 | ECGEPIP ---
Stationary ECG Study [facility] Test Date: 2016-09-08 Pat Name: JOHN MALDONADO Department: Room: [place] [address] Gender: M Reference Services Head: SORAIDA : 1940 Requested By: VINCENT SHAFER Order Number: [id number] Reading MD: Deisi Garcia Measurements Intervals [place] Rate: 111 P: [place]: 0 QRS: -87 QRSD: 112 T: 30 QT: 340 QTc: 464 Interpretive Statements ATRIAL FIBRILLATION WITH RAPID VENTRICULAR RESPONSE MARKED LEFT AXIS DEVIATION LOW QRS VOLTAGE IN EXTREMITY LEADS PATTERN CONSISTENT WITH PULMONARY DISEASE MODERATE INTRAVENTRICULAR CONDUCTION DELAY SIMILAR TO 03/01/16, LOW VOLTAGE IS NEW Electronically Signed On 09-08-2016 14:52:09 EDT by Deisi Garcia
--- NOTE | 2016-09-08 15:21 | IPN ---
DATE: 09/08/2016 SUBJECTIVE: Mr. Aguilar is seen this morning on his bedside. He is sitting in the chair. Nursing staff reports that he pulled out his intravenous (IV) this morning. The patient was somewhat confused and thought that he was going to go home today. He was admitted with sepsis and acute renal failure. IV fluid is currently on hold due to lack of IV access. PHYSICAL EXAMINATION: VITAL SIGNS: Temperature 98.9 degrees Fahrenheit, heart rate 110 per minute and respiratory rate 20 per minute. Blood pressure 148/83 mmHg and oxygen saturation 98% on room air. HEAD: Is atraumatic. NECK: Supple and without jugular venous distention (JVD) sitting upright. CARDIAC/RESPIRATORY: Heart sounds are tachycardiac and lungs sound clear to auscultation. ABDOMEN: Soft and nontender. There is no palpable organomegaly and bowel sounds are normal. EXTREMITIES: Have no cyanosis or clubbing. NEUROLOGIC: He is awake and able to answer questions; however, does not seem to be well oriented. LABORATORY DATA: Today's labs show WBC count 8.9, hemoglobin 11.2 and hematocrit 32.7. Sodium 131 and potassium 3.3. BUN is 38 and creatinine 1.41. His blood and urine cultures are all positive for Escherichia (E.) coli. PROBLEMS 1. Acute renal failure most likely related to sepsis. At present his kidney function has improved significantly. His IV line is out at present. We will continue to encourage with oral intake. I think we can leave the IV fluid off for now and monitor for next 24 hours. Nursing staff reports that he does like to drink and oral intake has been adequate. 2. Hyponatremia. This is related to acute renal failure. We will add oral sodium chloride tablets 1 gram three times a day, and recheck his electrolytes tomorrow morning. 3. Hypokalemia. Potassium level is also low. His oral intake was poor but seems to be better today. He will be given oral potassium chloride supplement with 40 mEq times two doses. Electrolytes will be checked tomorrow morning. 4. Urosepsis with Escherichia (E.) coli. The patient remains on and he should continue with IV antibiotic until he is ready for discharge. [facility]
[2016-09-08 16:00] VITALS: BP 110/66
[2016-09-08] MEDS ORDERED: SLF 3 ML SYR IV PRN (17:30)
[2016-09-08 20:00] VITALS: BP 153/81
[2016-09-08] MEDS: cefTRIAXone SOD 2 GM in D5W MINI-BAG PLUS 50 ML IV SCH (21:17)
[2016-09-08] MEDS: SLF 3 ML SYR IV SCH (21:19)
[2016-09-09] VITALS (7 sets, daily range): BP systolic 128–165; BP diastolic 67–90
[2016-09-09] MEDS: HEPARIN SOD (PORCINE) 5000 UNITS/ML VIAL SC SCH ×3 (05:29→21:49)
[2016-09-09] MEDS: SLF 3 ML SYR IV SCH ×3 (05:29→21:49)
[2016-09-09 06:06] LABS: BASO % 0.3 % (0.0-1.0); EOS # 0.1 K/mm3 (0.0-0.50); EOS % 0.7 % (0.0-3.0); LARGE UNSTAINED CELL # 0.3 K/mm3 (0.0-0.4); LARGE UNSTAINED CELL % 2.7 % (0.0-4.0); LYMPH # 0.6 K/mm3 (1.5-4.5); LYMPH % 3.7 % (24.0-44.0); MEAN CORPUSCULAR HEMOGLOBIN 32.2 pg (27.0-33.0); MEAN CORPUSCULAR HGB CONC 34.3 g/dl (32.0-36.5); MONO # 0.7 K/mm3 (0.0-0.8); MONO % 7.3 % (0.0-5.0); NEUTROPHILS # 8.1 K/mm3 (1.8-7.7); NEUTROPHILS % 85.3 % (36.0-66.0); PLATELET COUNT, AUTOMATED 131 k/mm3 (150-450); RED CELL DISTRIBUTION WIDTH 13.1 % (11.5-14.5); WHITE BLOOD COUNT 9.4 K/mm3 (4.0-10.0)
[2016-09-09 06:21] LABS: ALBUMIN 2.4 GM/DL (3.2-5.2); ALBUMIN/GLOBULIN RATIO 0.6 (1.00-1.93); BILIRUBIN,TOTAL 0.8 MG/DL (0.2-1.0); CALCIUM LEVEL 7.6 MG/DL (8.8-10.2); CREATININE FOR GFR 1.31 MG/DL (0.70-1.30); GLOMERULAR FILTRATION RATE 56.5 (>42); POTASSIUM SERUM 3.8 MEQ/L (3.5-5.1); TOTAL PROTEIN 6.4 GM/DL (6.4-8.2)
[2016-09-09] MEDS: ASPIRIN 81 MG ENTERIC TAB PO SCH (08:03)
[2016-09-09] MEDS: PRIMIDONE 50 MG TAB PO SCH ×2 (08:03→21:48)
[2016-09-09] MEDS: SODIUM CHLORIDE 1 GM TAB PO SCH ×3 (08:03→21:48)
[2016-09-09] MEDS: SINEMET 25-100 MG TAB PO SCH ×4 (08:03→21:47)
[2016-09-09] MEDS: OMEPRAZOLE 20 MG CAP PO SCH (08:04)
[2016-09-09] MEDS: MULTIVITAMINS/MINERALS THERAP 1 TAB PO SCH (08:04)
[2016-09-09] MEDS: TAMSULOSIN 0.4 MG CAP PO SCH (08:04)
[2016-09-09] MEDS: HumaLOG INSULIN (NovoLOG) PER UNIT SC SCH ×4 (08:04→21:00)
--- NOTE | 2016-09-09 08:43 | IPNPDOC ---
Text Note Date of Service The patient was seen on 09/09/16. NOTE Subjective: Pt feels well. Denies any complaints. Objective: Vitals: (see below) General: No acute distress, laying comfortably in bed. HEENT: Moist mucous membranes. Neck: No JVD or lymphadenopathy Cardiac: RRR, No murmurs Pulm: Clear to auscultation b/l. No wheezing, rhonchi Abd: NT/ND + BS Ext: No edema or cyanosis Alert and oriented 2. person and place. Following commands. Moving all extremities. Labs (see below) Images: Assessment/Plan 1. Severe sepsis secondary to urinary source from self-catheterization. Patient with gram-negative heide bacteremia. Presenting with metabolic encephalopathy and as a generalized weakness. The patient was also noted to have leukocytosis, bandemia, lactic acid doses of 6, which is trending down to 1.8. Urine cx with E.Coli. Cefepime changed to rocephin. On IV fluids.Blood cultures pending. 2. Delirium - improved. No neurologic deficits. Will continue to observe. 3. Hyperkalemia- improved. 4. Acute kidney injury- likely secondary to #1. Improving with IV fluids. 5. Zxy-nketxtm-khizffxsp diabetes mellitus- continue sliding scale insulin 6. History of Parkinson's disease and dementia 7. History of urinary retention and UTIs - self catheterizes. Started on Flomax 8. Hyponatremia- likely hypovolemic from being septic. Improved with IV fluids. DVT prophy: Heparin subcutaneous Prognosis guarded. Pending physical therapy clearance- may need short-term rehabilitation VS,Heather, I+O VS, Heather, I+O Laboratory Tests 09/09/16 05:29 Red Blood Count 3.53 L, Mean Corpuscular Volume 94.0, Mean Corpuscular Hemoglobin 32.2, Mean Corpuscular Hemoglobin Concent 34.3, Red Cell Distribution Width 13.1, Neutrophils (%) (Auto) 85.3 H, Lymphocytes (%) (Auto) 3.7 L, Monocytes (%) (Auto) 7.3 H, Eosinophils (%) (Auto) 0.7, Basophils (%) ( Auto) 0.3, Neutrophils # (Auto) 8.1 H, Lymphocytes # (Auto) 0.6 L, Monocytes # ( Auto) 0.7, Eosinophils # (Auto) 0.1, Basophils # (Auto) 0.0, Calcium Level 7.6 L , Aspartate Amino Transf (AST/SGOT) 37, Alanine Aminotransferase (ALT/SGPT) 7 L , Alkaline Phosphatase 139 H, Total Bilirubin 0.8, Total Protein 6.4, Albumin 2.4 L Vital Signs Date Time Temp Pulse Resp B/P (MAP) Pulse Ox O2 Delivery O2 Flow Rate FiO2 09/09/16 07:20 98.6 95 20 128/67 (87) 95 Room Air I&O- Last 24 Hours up to 6 AM 09/09/16 05:59 Intake Total 1930 ml Output Total 3800 ml Balance -1870 ml VINCENT SHAFER MD Sep 09, 2016 08:43
--- NOTE | 2016-09-09 13:13 | IPN ---
DATE OF VISIT: 09/09/2016 Mr. Aguilar is seen this morning on his bedside. He denies any nausea, vomiting, dyspnea or chest pain. He reports that he ate everything on his tray this morning. PHYSICAL EXAMINATION: Temperature 98.6 degrees Fahrenheit, heart rate 96 per minute and respiratory rate 20 per minute. Blood pressure 128/67 mmHg and oxygen saturation 95% on room air. Intake and output records are almost even from yesterday. His head is atraumatic. Neck is supple and without jugular venous distention (JVD) or thyroid enlargement. Heart: Sounds are regular. Lungs with diminished breath sounds and scattered rhonchi at dependent parts. Abdomen: Soft and nontender and without palpable organomegaly. Bowel sounds are normal. Extremities: Without cyanosis or clubbing. Skin is without any rash or ulcers. Neurologically he seems to be grossly intact. Today's labs show WBC count 9.4, hemoglobin 11.4, hematocrit 33.2. Sodium 132 and potassium 328. BUN 28 and creatinine 1.31. PROBLEMS: 1. Acute renal failure. Slight improvement in kidney function is noticed over last 24 hours. He is currently not receiving any IV fluid and oral intake seems to be reasonable. 2. Hyponatremia. Sodium level is slightly improved. We will continue with oral potassium and sodium supplement. 3. Hypokalemia. Potassium level has also improved. We will recheck his electrolytes tomorrow morning. He was given oral potassium supplements yesterday. 4. E-coli urosepsis. The patient remains on ceftriaxone and is currently afebrile.
[2016-09-09] MEDS: cefTRIAXone SOD 2 GM in D5W MINI-BAG PLUS 50 ML IV SCH (21:47)
[2016-09-10] VITALS (7 sets, daily range): BP systolic 124–180; BP diastolic 56–98
[2016-09-10 05:23] LABS: BASO % 0.3 % (0.0-1.0); EOS # 0.1 K/mm3 (0.0-0.50); EOS % 1.6 % (0.0-3.0); LARGE UNSTAINED CELL # 0.2 K/mm3 (0.0-0.4); LYMPH # 0.9 K/mm3 (1.5-4.5); LYMPH % 8.4 % (24.0-44.0); MEAN CORPUSCULAR HEMOGLOBIN 32.3 pg (27.0-33.0); MEAN CORPUSCULAR HGB CONC 33.7 g/dl (32.0-36.5); MEAN CORPUSCULAR VOLUME 95.8 fl (80.0-96.0); MONO # 0.6 K/mm3 (0.0-0.8); MONO % 6.6 % (0.0-5.0); NEUTROPHILS # 7.4 K/mm3 (1.8-7.7); NEUTROPHILS % 81.1 % (36.0-66.0); PLATELET COUNT, AUTOMATED 187 k/mm3 (150-450); RED CELL DISTRIBUTION WIDTH 13.3 % (11.5-14.5); WHITE BLOOD COUNT 9.1 K/mm3 (4.0-10.0)
[2016-09-10 05:38] LABS: ALBUMIN 2.4 GM/DL (3.2-5.2); ALBUMIN/GLOBULIN RATIO 0.52 (1.00-1.93); BILIRUBIN,TOTAL 0.6 MG/DL (0.2-1.0); CALCIUM LEVEL 7.9 MG/DL (8.8-10.2); CREATININE FOR GFR 1.37 MG/DL (0.70-1.30); GLOMERULAR FILTRATION RATE 53.6 (>42); POTASSIUM SERUM 3.8 MEQ/L (3.5-5.1)
[2016-09-10] MEDS: HEPARIN SOD (PORCINE) 5000 UNITS/ML VIAL SC SCH ×3 (05:56→22:29)
[2016-09-10] MEDS: SLF 3 ML SYR IV SCH ×3 (05:56→15:11)
--- NOTE | 2016-09-10 08:01 | IPNPDOC ---
Text Note Date of Service The patient was seen on 09/10/16. NOTE Subjective: Feeling well. Sitting in chair. In a good mood and very conversive. Objective: Vitals: (see below) General: No acute distress, laying comfortably in bed. HEENT: Moist mucous membranes. Neck: No JVD or lymphadenopathy Cardiac: RRR, No murmurs Pulm: Clear to auscultation b/l. No wheezing, rhonchi Abd: NT/ND + BS Ext: No edema or cyanosis Alert and oriented 3. Following commands. Moving all extremities. Labs (see below) Images: Assessment/Plan 1. Severe sepsis secondary to urinary source from self-catheterization. Patient with gram-negative heide bacteremia. Presenting with metabolic encephalopathy and as a generalized weakness. The patient was also noted to have leukocytosis, bandemia, lactic acid doses of 6, which is trending down to 1.8. Urine/blood cx with E.Coli. Rocephin changed to cefdinir. CRP improving. On IV fluids. Repeat Blood cultures negative. 2. Delirium - improved. No neurologic deficits. Will continue to observe. 3. Hyperkalemia- improved. 4. Acute kidney injury- likely secondary to #1. Improving with IV fluids. 5. Noh-gdausrq-kneaohbrg diabetes mellitus- continue sliding scale insulin 6. History of Parkinson's disease and dementia 7. History of urinary retention and UTIs - self catheterizes. Started on Flomax 8. Hyponatremia- likely hypovolemic from being septic. Improved with IV fluids. DVT prophy: Heparin subcutaneous Prognosis guarded. Pending physical therapy clearance- may need short-term rehabilitation VS,Heather, I+O VS, Heather, I+O Laboratory Tests 09/10/16 05:08 Red Blood Count 3.75 L, Mean Corpuscular Volume 95.8, Mean Corpuscular Hemoglobin 32.3, Mean Corpuscular Hemoglobin Concent 33.7, Red Cell Distribution Width 13.3, Neutrophils (%) (Auto) 81.1 H, Lymphocytes (%) (Auto) 8.4 L, Monocytes (%) (Auto) 6.6 H, Eosinophils (%) (Auto) 1.6, Basophils (%) ( Auto) 0.3, Neutrophils # (Auto) 7.4, Lymphocytes # (Auto) 0.9 L, Monocytes # ( Auto) 0.6, Eosinophils # (Auto) 0.1, Basophils # (Auto) 0.0, Calcium Level 7.9 L , Aspartate Amino Transf (AST/SGOT) 39 H, Alanine Aminotransferase (ALT/SGPT) 12 , Alkaline Phosphatase 152 H, Total Bilirubin 0.6, Total Protein 7.0, Albumin 2.4 L Vital Signs Date Time Temp Pulse Resp B/P (MAP) Pulse Ox O2 Delivery O2 Flow Rate FiO2 09/10/16 07:49 97.2 112 20 139/95 (110) 91 Room Air I&O- Last 24 Hours up to 6 AM 09/10/16 06:00 Intake Total 2400 ml Output Total 4025 ml Balance -1625 ml VINCENT SHAFER MD Sep 10, 2016 08:01
[2016-09-10] MEDS: HumaLOG INSULIN (NovoLOG) PER UNIT SC SCH ×4 (08:23→21:00)
[2016-09-10] MEDS: OMEPRAZOLE 20 MG CAP PO SCH (10:29)
[2016-09-10] MEDS: MULTIVITAMINS/MINERALS THERAP 1 TAB PO SCH (10:29)
[2016-09-10] MEDS: SINEMET 25-100 MG TAB PO SCH ×4 (10:29→22:28)
[2016-09-10] MEDS: TAMSULOSIN 0.4 MG CAP PO SCH (10:29)
[2016-09-10] MEDS: ASPIRIN 81 MG ENTERIC TAB PO SCH (10:29)
[2016-09-10] MEDS: CEFDINIR 300 MG CAP (OMNICEF) PO SCH ×2 (10:29→22:29)
[2016-09-10] MEDS: PRIMIDONE 50 MG TAB PO SCH ×2 (10:30→22:29)
[2016-09-10] MEDS: SODIUM CHLORIDE 1 GM TAB PO SCH ×3 (10:30→22:29)
--- NOTE | 2016-09-10 20:24 | IPN ---
DATE: 09/10/2016 Mr. Aguilar is seen this morning on his bedside. He is sitting in the chair at the time of my visit. He seems to be better oriented and much more alert today. He denies any nausea, vomiting, dyspnea, chest pain, fever or chills. PHYSICAL EXAMINATION: Temperature 97.2 degrees Fahrenheit, heart rate 112 per minute, respiratory rate 20 per minute. Blood pressure 139/95 mmHg and oxygen saturation 91% on room air. His head is atraumatic. Neck is supple and without jugular venous distention (JVD) or thyroid enlargement. Lungs: Sound clear to auscultation bilaterally. Heart: Sounds are tachycardiac and irregular. Abdomen: Soft and nontender and extremities without any cyanosis or clubbing. Today's labs show WBC count 9.1, hemoglobin 12.1 and hematocrit 36. Platelets 187. Sodium 133 and potassium 3.8. BUN 25 and creatinine 1.37. PROBLEMS: 1. Acute renal failure. Kidney function seems to have leveled off. His oral intake is adequate and he does not need IV fluid at this point. A Chung catheter is draining clear urine. 2. Hyponatremia. Sodium level is gradually improving. We will continue with oral sodium supplement. Electrolytes will be checked again tomorrow. 3. Hypokalemia, potassium level has also improved. We will continue to monitor his electrolytes. At present his oral intake is adequate and he is eating well. We anticipate that his electrolytes will improve to normal range. 4. Sepsis. The patient has Escherichia coli (E. Coli) sepsis and is currently afebrile. Repeat blood cultures are negative. Antibiotic has been changed to cefdinir now.
[2016-09-11 04:23] VITALS: BP 151/88
[2016-09-11 05:31] LABS: BASO % 0.4 % (0.0-1.0); EOS # 0.2 K/mm3 (0.0-0.50); EOS % 2.3 % (0.0-3.0); LARGE UNSTAINED CELL # 0.2 K/mm3 (0.0-0.4); LARGE UNSTAINED CELL % 2.5 % (0.0-4.0); LYMPH # 1.2 K/mm3 (1.5-4.5); LYMPH % 10.6 % (24.0-44.0); MEAN CORPUSCULAR HEMOGLOBIN 31.8 pg (27.0-33.0); MEAN CORPUSCULAR HGB CONC 32.7 g/dl (32.0-36.5); MEAN CORPUSCULAR VOLUME 97.3 fl (80.0-96.0); MONO # 0.5 K/mm3 (0.0-0.8); MONO % 5.9 % (0.0-5.0); NEUTROPHILS # 7.2 K/mm3 (1.8-7.7); NEUTROPHILS % 78.3 % (36.0-66.0); PLATELET COUNT, AUTOMATED 221 k/mm3 (150-450); RED CELL DISTRIBUTION WIDTH 13.5 % (11.5-14.5); WHITE BLOOD COUNT 9.2 K/mm3 (4.0-10.0)
[2016-09-11] MEDS: HEPARIN SOD (PORCINE) 5000 UNITS/ML VIAL SC SCH ×3 (05:39→21:35)
[2016-09-11] MEDS: SLF 3 ML SYR IV SCH ×3 (05:39→21:45)
[2016-09-11 05:51] LABS: ALBUMIN 2.5 GM/DL (3.2-5.2); ALBUMIN/GLOBULIN RATIO 0.6 (1.00-1.93); BILIRUBIN,TOTAL 0.7 MG/DL (0.2-1.0); CALCIUM LEVEL 7.8 MG/DL (8.8-10.2); CREATININE FOR GFR 1.29 MG/DL (0.70-1.30); GLOMERULAR FILTRATION RATE 57.5 (>42); POTASSIUM SERUM 3.9 MEQ/L (3.5-5.1); TOTAL PROTEIN 6.7 GM/DL (6.4-8.2)
[2016-09-11 08:00] VITALS: BP 136/64
[2016-09-11] MEDS: HumaLOG INSULIN (NovoLOG) PER UNIT SC SCH ×4 (08:28→21:45)
[2016-09-11] MEDS: SODIUM CHLORIDE 1 GM TAB PO SCH ×3 (08:28→21:36)
[2016-09-11] MEDS: CEFDINIR 300 MG CAP (OMNICEF) PO SCH ×2 (08:28→21:36)
[2016-09-11] MEDS: SINEMET 25-100 MG TAB PO SCH ×4 (08:29→21:35)
[2016-09-11] MEDS: PRIMIDONE 50 MG TAB PO SCH ×2 (08:29→21:36)
[2016-09-11] MEDS: TAMSULOSIN 0.4 MG CAP PO SCH (08:29)
[2016-09-11] MEDS: OMEPRAZOLE 20 MG CAP PO SCH (08:29)
[2016-09-11] MEDS: ASPIRIN 81 MG ENTERIC TAB PO SCH (08:29)
[2016-09-11] MEDS: MULTIVITAMINS/MINERALS THERAP 1 TAB PO SCH (08:29)
[2016-09-11 11:52] VITALS: BP 147/69
--- NOTE | 2016-09-11 15:33 | IPNPDOC ---
Text Note Date of Service The patient was seen on 09/11/16. NOTE Subjective: Patient is a 75 year old male with a PMHx of NIDDM2, HTN, Chronic A.fib (not on anticoagulation 2/2 unsteady gait and dementia), Parkinson's, Dementia, Urinary retention and Hx of UTI who presented to the ER with progressive weakens. He was found to have a UTI and urinary retention. Patient was seen and examined at the bedside. He does not report any problems today. I have explained to him that he needs to clear physical therapy before getting home. Objective: Vitals (See below) General: Lying in bed, no acute distress, comfortable, AAOx3 HEENT: NC, AT CVS: RRR, +S1S2 Lungs: Fair air entry b/l, -w/r/r Abdomen: Soft, ND, NT, +BSx4 Extremities: +PPx4, - Edema, - Calf tenderness Assessment and plan: 1. Severe sepsis 2/2 UTI - likely 2/2 self-catheterizations - Presented with weakness and shaking - Urine cultures 09/05 and Blood cultures 09/05: E. coli - sensitive to Ceftriaxone - WBC and CRP improved - Blood cultures 09/10: Negative - Antibiotics changed to oral Cefdinir (Antibiotic Day #6) 2. s/p Metabolic encephalopathy - likely 2/2 #1 3. s/p Hyperkalemia 4. s/p FLORENCIA - likely 2/2 pre-renal etiology 2/2 dehydration - s/p IV fluids - Dr. Multani following 5. NIDDM2 - c/w ISS while inpatient 6. Parkinson's disease / Dementia - c/w Carbidopa / Levodopa 7. Hx of UTIs 8. Urinary retention - c/w Flomax 9. Hyponatremia - mild - remains stable 10. DVT prophylaxis - c/w Heparin SQ Disposition: - c/w PT - Will need subacute placement based on PT recommendations VS,Heather, I+O VS, Heather, I+O Laboratory Tests 09/11/16 04:58 Red Blood Count 3.67 L, Mean Corpuscular Volume 97.3 H, Mean Corpuscular Hemoglobin 31.8, Mean Corpuscular Hemoglobin Concent 32.7, Red Cell Distribution Width 13.5, Neutrophils (%) (Auto) 78.3 H, Lymphocytes (%) (Auto) 10.6 L, Monocytes (%) (Auto) 5.9 H, Eosinophils (%) (Auto) 2.3, Basophils (%) ( Auto) 0.4, Neutrophils # (Auto) 7.2, Lymphocytes # (Auto) 1.2 L, Monocytes # ( Auto) 0.5, Eosinophils # (Auto) 0.2, Basophils # (Auto) 0.0, Calcium Level 7.8 L , Aspartate Amino Transf (AST/SGOT) 54 H, Alanine Aminotransferase (ALT/SGPT) 11 L, Alkaline Phosphatase 155 H, Total Bilirubin 0.7, Total Protein 6.7, Albumin 2.5 L Vital Signs Date Time Temp Pulse Resp B/P (MAP) Pulse Ox O2 Delivery O2 Flow Rate FiO2 09/11/16 15:01 Room Air 09/11/16 11:52 97.8 91 18 147/69 (95) 99 I&O- Last 24 Hours up to 6 AM 09/11/16 06:00 Intake Total 1800 ml Output Total 4825 ml Balance -3025 ml JAYLA WOODALL MD Sep 11, 2016 15:33
[2016-09-11 16:00] VITALS: BP 152/87
[2016-09-11 19:33] VITALS: BP 143/58
[2016-09-11 23:33] VITALS: BP 156/91
[2016-09-12 03:47] VITALS: BP 136/71
[2016-09-12 05:54] LABS: BASO # 0.1 K/mm3 (0.0-0.2); BASO % 0.7 % (0.0-1.0); EOS # 0.2 K/mm3 (0.0-0.50); LARGE UNSTAINED CELL # 0.2 K/mm3 (0.0-0.4); LARGE UNSTAINED CELL % 2.1 % (0.0-4.0); LYMPH # 1.1 K/mm3 (1.5-4.5); LYMPH % 11.5 % (24.0-44.0); MEAN CORPUSCULAR HEMOGLOBIN 32.3 pg (27.0-33.0); MEAN CORPUSCULAR HGB CONC 33.7 g/dl (32.0-36.5); MEAN CORPUSCULAR VOLUME 95.8 fl (80.0-96.0); MONO # 0.5 K/mm3 (0.0-0.8); MONO % 5.3 % (0.0-5.0); NEUTROPHILS # 7.5 K/mm3 (1.8-7.7); NEUTROPHILS % 78.4 % (36.0-66.0); PLATELET COUNT, AUTOMATED 298 k/mm3 (150-450); RED CELL DISTRIBUTION WIDTH 13.2 % (11.5-14.5); WHITE BLOOD COUNT 9.5 K/mm3 (4.0-10.0)
[2016-09-12 06:22] LABS: ALBUMIN 2.4 GM/DL (3.2-5.2); ALBUMIN/GLOBULIN RATIO 0.56 (1.00-1.93); BILIRUBIN,TOTAL 0.7 MG/DL (0.2-1.0); CALCIUM LEVEL 8.2 MG/DL (8.8-10.2); CREATININE FOR GFR 1.26 MG/DL (0.70-1.30); GLOMERULAR FILTRATION RATE 59.1 (>42); TOTAL PROTEIN 6.7 GM/DL (6.4-8.2)
[2016-09-12] MEDS: SLF 3 ML SYR IV SCH ×3 (06:48→21:35)
[2016-09-12] MEDS: HEPARIN SOD (PORCINE) 5000 UNITS/ML VIAL SC SCH ×3 (06:49→21:35)
[2016-09-12 08:00] VITALS: BP 102/50
[2016-09-12] MEDS: PRIMIDONE 50 MG TAB PO SCH ×2 (08:08→21:35)
[2016-09-12] MEDS: OMEPRAZOLE 20 MG CAP PO SCH (08:08)
[2016-09-12] MEDS: ASPIRIN 81 MG ENTERIC TAB PO SCH (08:08)
[2016-09-12] MEDS: MULTIVITAMINS/MINERALS THERAP 1 TAB PO SCH (08:08)
[2016-09-12] MEDS: TAMSULOSIN 0.4 MG CAP PO SCH (08:08)
[2016-09-12] MEDS: CEFDINIR 300 MG CAP (OMNICEF) PO SCH ×2 (08:08→21:34)
[2016-09-12] MEDS: SODIUM CHLORIDE 1 GM TAB PO SCH (08:09)
[2016-09-12] MEDS: SINEMET 25-100 MG TAB PO SCH ×4 (08:09→21:35)
[2016-09-12] MEDS: HumaLOG INSULIN (NovoLOG) PER UNIT SC SCH ×4 (08:10→20:57)
--- NOTE | 2016-09-12 08:18 | IPN ---
DATE: 09/11/2016 Mr. Aguilar is seen this morning on his bedside. He is lying in the bed and feels well. He denies any fever, chills, nausea, vomiting, dyspnea or chest pain. His Chung catheter is draining clear yellow urine. PHYSICAL EXAMINATION: Temperature 96.8 degrees Fahrenheit, heart rate 106 per minute and respiratory rate 18 per minute. Blood pressure 136/64 mmHg and oxygen saturation 100% on room air. Intake and output records from yesterday showed total intake 1800 and output is recorded as 5150, which may not be accurate. His head is atraumatic. Neck is supple and without Jugular venous distention or thyroid enlargement. Oral mucosa is moist and healthy. Pupils are equal and reactive to light and sclera is anicteric. Heart sounds are tachycardiac and lungs clear to auscultation. Abdomen soft and nontender. Bowel sounds are normal. There is no palpable organomegaly. Extremities have no cyanosis or clubbing. Skin has no rash or ulcers. Neurologically he seems to be awake, alert and well oriented. Today's labs show WBC count 9.2, hemoglobin 11.7 and hematocrit 35.8. Sodium 133 and potassium 3.9. BUN 25 and creatinine 1.29. PROBLEMS: 1. Acute kidney injury: Kidney function seems to have leveled off. He has large amount of urine output probably related to recovery of acute renal failure. At this point I suggest to continue with liberal oral fluid intake. 2. Hyponatremia: Sodium level has remained stable and hyponatremia is only mild. At this point we will monitor electrolytes every day. 3. E coli urosepsis: The patient is now on cefdinir and has been afebrile. At this point we will maintain the Chung catheter. 4. Disposition: The patient seems to be much better and we are waiting for physical therapy to clear him for possible discharge. 5. Chronic kidney disease: The patient seems to have stage III chronic kidney disease at baseline. His kidney function is probably now at about baseline.
[2016-09-12 12:00] VITALS: BP 147/80
--- NOTE | 2016-09-12 12:19 | IPN ---
DATE OF VISIT: 09/12/1016 Mr. Aguilar is seen this morning on his bedside. He is sitting in the chair getting ready for his physical therapy. He denies any nausea, vomiting, dyspnea, or chest pain. He reports that he has been eating well. On physical exam, temperature 98.1 degrees Fahrenheit, heart rate 112 per minute, and respiratory rate 18 per minute. Blood pressure 102/50 mmHg, and oxygen saturation 100% on room air. Intake and output records show a negative fluid balance of about 3.5 liters yesterday while it was negative about 3.3 liters day before yesterday. Today so far he is negative by 1800 already. His weight is down to 88.1 kg while he weighed 91.9 kg on 09/09/2016. His head is atraumatic. Neck is supple and without jugular venous distention (JVD) or thyroid enlargement. Ears, nose, and throat are unremarkable. Pupils equal and reactive to light, and sclera is anicteric. Heart sounds are tachycardiac, and lungs clear to auscultation. Abdomen, soft and nontender, and there is no palpable organomegaly. Bowel sounds are normal. Extremities have no cyanosis or clubbing. Skin has no rash or ulcers. Neurologically, he is awake, alert, and oriented times three . Today's labs show WBC 9.5, hemoglobin, 11.1 and hematocrit 33.1. Platelets 298. Sodium was 136 and potassium 4.0. BUN 23 and creatinine 1.26. Glucose 141 and calcium 8.2. PROBLEMS: 1. Acute kidney injury superimposed on chronic kidney disease. Kidney function has improved slightly further over last 24 hours. He has been in significant negative fluid balance over last 72 hours. I have encouraged him to increase his oral fluid intake. 2. Hyponatremia. Sodium level has corrected now. I will stop his oral sodium chloride supplement. We will recheck his electrolytes tomorrow. 3. Escherichia (E) coli urosepsis. Patient remains on cefdinir and intravenous (IV) antibiotics have been stopped. 4. Urinary retention. Patient continues with Chung catheter, and Flomax 0.4 mg daily has already been started. In view of his significant negative fluid balance, will need to monitor him closely particularly for orthostatic hypotension. Will recheck his electrolytes and renal function tomorrow again.
--- NOTE | 2016-09-12 14:26 | IPNPDOC ---
Text Note Date of Service The patient was seen on 09/12/16. NOTE Subjective: Patient is a 75 year old male with a PMHx of NIDDM2, HTN, Chronic A.fib (not on anticoagulation 2/2 unsteady gait and dementia), Parkinson's, Dementia, Urinary retention and Hx of UTI who presented to the ER with progressive weakens. He was found to have a UTI and urinary retention. Patient was seen and examined at the bedside. Will still need to work with physical therapy before getting cleared. Currently looking into subacute rehab placement. Objective: Vitals (See below) General: Lying in bed, no acute distress, comfortable, AAOx3 HEENT: NC, AT CVS: RRR, +S1S2 Lungs: Fair air entry b/l, -w/r/r Abdomen: Soft, ND, NT, +BSx4 Extremities: +PPx4, - Edema, - Calf tenderness Assessment and plan: 1. Severe sepsis 2/2 UTI - likely 2/2 self-catheterizations - Presented with weakness and shaking - Urine cultures 09/05 and Blood cultures 09/05: E. coli - sensitive to Ceftriaxone - WBC and CRP improved - Blood cultures 09/10: Negative - Antibiotics changed to oral Cefdinir (Antibiotic Day #7) 2. s/p Metabolic encephalopathy - likely 2/2 #1 3. s/p Hyperkalemia 4. s/p FLORENCIA - likely 2/2 pre-renal etiology 2/2 dehydration - s/p IV fluids - Dr. Multani following 5. NIDDM2 - c/w ISS while inpatient 6. Parkinson's disease / Dementia - c/w Carbidopa / Levodopa 7. Hx of UTIs 8. Urinary retention - c/w Flomax 9. Hyponatremia - mild - remains stable 10. DVT prophylaxis - c/w Heparin SQ Disposition: - c/w PT - Looking into subacute placement; continue with PT in meantime VS,Fishbone, I+O VS, Fishbone, I+O Laboratory Tests 09/12/16 05:42 Red Blood Count 3.45 L, Mean Corpuscular Volume 95.8, Mean Corpuscular Hemoglobin 32.3, Mean Corpuscular Hemoglobin Concent 33.7, Red Cell Distribution Width 13.2, Neutrophils (%) (Auto) 78.4 H, Lymphocytes (%) (Auto) 11.5 L, Monocytes (%) (Auto) 5.3 H, Eosinophils (%) (Auto) 2.0, Basophils (%) ( Auto) 0.7, Neutrophils # (Auto) 7.5, Lymphocytes # (Auto) 1.1 L, Monocytes # ( Auto) 0.5, Eosinophils # (Auto) 0.2, Basophils # (Auto) 0.1, Calcium Level 8.2 L , Aspartate Amino Transf (AST/SGOT) 80 H, Alanine Aminotransferase (ALT/SGPT) 18 , Alkaline Phosphatase 137 H, Total Bilirubin 0.7, Total Protein 6.7, Albumin 2.4 L Vital Signs Date Time Temp Pulse Resp B/P (MAP) Pulse Ox O2 Delivery O2 Flow Rate FiO2 09/12/16 12:00 98.1 90 18 147/80 (102) 92 Room Air I&O- Last 24 Hours up to 6 AM 09/12/16 06:00 Intake Total 1800 ml Output Total 5225 ml Balance -3425 ml JAYLA WOODALL MD Sep 12, 2016 14:26
[2016-09-12 16:00] VITALS: BP 144/81
[2016-09-12 19:45] VITALS: BP_SYST 143; BP_SYST 188; BP_DIAS 63; BP_DIAS 82
[2016-09-13 06:00] VITALS: BP 132/61
[2016-09-13] MEDS: SLF 3 ML SYR IV SCH ×3 (06:36→22:00)
[2016-09-13] MEDS: HEPARIN SOD (PORCINE) 5000 UNITS/ML VIAL SC SCH ×3 (06:36→23:36)
[2016-09-13] MEDS: CEFDINIR 300 MG CAP (OMNICEF) PO SCH ×2 (08:29→23:37)
[2016-09-13] MEDS: OMEPRAZOLE 20 MG CAP PO SCH (08:29)
[2016-09-13] MEDS: SINEMET 25-100 MG TAB PO SCH ×4 (08:29→23:37)
[2016-09-13] MEDS: MULTIVITAMINS/MINERALS THERAP 1 TAB PO SCH (08:29)
[2016-09-13] MEDS: ASPIRIN 81 MG ENTERIC TAB PO SCH (08:29)
[2016-09-13] MEDS: PRIMIDONE 50 MG TAB PO SCH ×2 (08:29→23:38)
[2016-09-13] MEDS: TAMSULOSIN 0.4 MG CAP PO SCH (08:29)
[2016-09-13] MEDS: HumaLOG INSULIN (NovoLOG) PER UNIT SC SCH ×4 (08:30→21:00)
--- NOTE | 2016-09-13 11:57 | IPN ---
DATE: 09/13/2016 Mr. Castellano is seen this morning at his bedside. He is feeling well and is sitting in the chair. He is upset about being weak and not being able to get up and walk. PHYSICAL EXAMINATION: Temperature 98.5 degrees Fahrenheit, heart rate 103 per minute and respiratory rate 16 per minute. Blood pressure 132/60 mmHg and oxygen saturation 99% on room air. Intake and output records from yesterday show of about 90 mL. PHYSICAL EXAMINATION: His head is atraumatic. Neck is supple and without jugular venous distention (JVD) or thyroid enlargement. Heart sounds are tachycardiac. Lungs clear to auscultation. Abdomen is soft, nontender without any palpable organomegaly. Bowel sounds are normal. Extremities have no cyanosis or clubbing. The patient did not have any labs other than a C-reactive protein, which is coming down and today's reading is 6.62. PROBLEMS: 1. Acute kidney injury superimposed on chronic kidney disease. His kidney function seems to have leveled off. He is currently not receiving any IV fluids. I will check his basic metabolic profile again today and if his electrolytes and kidney function is stable then I will sign off the case. 2. Escherichia (E) coli urosepsis. The patient remains on cefdinir 300 mg twice a day. 3. Generalized weakness and deconditioning. The patient continues with subacute rehabilitation.
[2016-09-13 12:11] LABS: CALCIUM LEVEL 8.3 MG/DL (8.8-10.2); CREATININE FOR GFR 1.35 MG/DL (0.70-1.30); GLOMERULAR FILTRATION RATE 54.6 (>42); POTASSIUM SERUM 4.5 MEQ/L (3.5-5.1)
[2016-09-13 14:00] VITALS: BP 135/59
--- NOTE | 2016-09-13 14:45 | IPNPDOC ---
Text Note Date of Service The patient was seen on 09/13/16. NOTE Subjective: Patient is a 75 year old male with a PMHx of NIDDM2, HTN, Chronic A.fib (not on anticoagulation 2/2 unsteady gait and dementia), Parkinson's, Dementia, Urinary retention and Hx of UTI who presented to the ER with progressive weakens. He was found to have a UTI and urinary retention. Patient was seen and examined at the bedside. Continues with physical therapy, will need placement. Objective: Vitals (See below) General: Lying in bed, no acute distress, comfortable, AAOx3 HEENT: NC, AT CVS: RRR, +S1S2 Lungs: Fair air entry b/l, -w/r/r Abdomen: Soft, ND, NT, +BSx4 Extremities: +PPx4, - Edema, - Calf tenderness Assessment and plan: 1. s/p Severe sepsis 2/2 UTI - likely 2/2 self-catheterizations - Presented with weakness and shaking - Urine cultures 09/05 and Blood cultures 09/05: E. coli - sensitive to Ceftriaxone - WBC and CRP improved - Blood cultures 09/10: Negative - Antibiotics changed to oral Cefdinir (Antibiotic Day #8); will stop today 2. s/p Metabolic encephalopathy - likely 2/2 #1 3. s/p Hyperkalemia 4. s/p FLORENCIA - likely 2/2 pre-renal etiology 2/2 dehydration - s/p IV fluids - Dr. Multani following 5. NIDDM2 - c/w ISS while inpatient 6. Parkinson's disease / Dementia - c/w Carbidopa / Levodopa 7. Hx of UTIs 8. Urinary retention - Chung Catheter present - Will continue with intermittent self catheterizations upon discharge - c/w Flomax 9. Hyponatremia - mild - remains stable 10. DVT prophylaxis - c/w Heparin SQ Disposition: - Looking into subacute placement VS,Fishbone, I+O VS, Fishbone, I+O Laboratory Tests 09/13/16 06:50 Calcium Level 8.3 L Vital Signs Date Time Temp Pulse Resp B/P (MAP) Pulse Ox O2 Delivery O2 Flow Rate FiO2 09/13/16 06:00 98.5 103 16 132/61 (84) 99 Room Air I&O- Last 24 Hours up to 6 AM 09/13/16 06:00 Intake Total 3360 ml Output Total 4450 ml Balance -1090 ml JAYLA WOODALL MD Sep 13, 2016 14:45
[2016-09-13 22:00] VITALS: BP_SYST 16; BP_SYST 160; BP_DIAS 65
[2016-09-14 06:00] VITALS: BP 135/78
[2016-09-14] MEDS: SLF 3 ML SYR IV SCH (06:00)
[2016-09-14 06:52] LABS: MEAN CORPUSCULAR HGB CONC 33.3 g/dl (32.0-36.5); MEAN CORPUSCULAR VOLUME 96.1 fl (80.0-96.0); RED CELL DISTRIBUTION WIDTH 13.5 % (11.5-14.5); WHITE BLOOD COUNT 12.8 K/mm3 (4.0-10.0)
[2016-09-14] MEDS: HEPARIN SOD (PORCINE) 5000 UNITS/ML VIAL SC SCH (06:58)
[2016-09-14] MEDS: HumaLOG INSULIN (NovoLOG) PER UNIT SC SCH ×2 (07:30→11:40)
[2016-09-14 07:38] LABS: ALBUMIN 2.9 GM/DL (3.2-5.2); ALBUMIN/GLOBULIN RATIO 0.73 (1.00-1.93); BILIRUBIN,TOTAL 0.7 MG/DL (0.2-1.0); CALCIUM LEVEL 8.3 MG/DL (8.8-10.2); CREATININE FOR GFR 1.35 MG/DL (0.70-1.30); GLOMERULAR FILTRATION RATE 54.6 (>42); MAGNESIUM LEVEL 1.9 MG/DL (1.8-2.4); POTASSIUM SERUM 4.4 MEQ/L (3.5-5.1); TOTAL PROTEIN 6.9 GM/DL (6.4-8.2)
[2016-09-14] MEDS ORDERED: FLOM5CAP PO (08:45)
[2016-09-14] MEDS ORDERED: INSUHUMDS SC ×2 (08:45)
[2016-09-14] MEDS ORDERED: GLYB125TA PO (08:45)
[2016-09-14] MEDS: OMEPRAZOLE 20 MG CAP PO SCH (11:37)
[2016-09-14] MEDS: CEFDINIR 300 MG CAP (OMNICEF) PO SCH (11:37)
[2016-09-14] MEDS: SINEMET 25-100 MG TAB PO SCH ×2 (11:38→11:46)
[2016-09-14] MEDS: TAMSULOSIN 0.4 MG CAP PO SCH (11:39)
[2016-09-14] MEDS: ASPIRIN 81 MG ENTERIC TAB PO SCH (11:39)
[2016-09-14] MEDS: PRIMIDONE 50 MG TAB PO SCH (11:40)
[2016-09-14] MEDS: MULTIVITAMINS/MINERALS THERAP 1 TAB PO SCH (11:40)
[2016-09-14] MEDS: ACETAMINOPHEN TAB 650MG DOSE (2X325MG) PO PRN (11:45)
--- NOTE | 2016-09-14 13:54 | DSES ---
DATE OF ADMISSION: 09/05/2016 DATE OF DISCHARGE: 09/14/2016 ATTENDING PHYSICIAN: Dr. Migue Godoy, Dr. Navneet Ríos. PRIMARY CARE PHYSICIAN: Dr. Cj Ashton REFERRING PHYSICIAN: None. CONSULTING PHYSICIANS: Dr. Bhatia, Dr. Montemayor. CONDITION ON DISCHARGE: Stable. FINAL DIAGNOSIS: Acute metabolic encephalopathy, likely secondary to sepsis, likely secondary to urinary tract infection. PROCEDURES: None. HISTORY OF PRESENT ILLNESS: Patient is a 75-year-old male with past medical history of olx-zvusihj-dtwntamst diabetes mellitus type 2, hypertension, chronic atrial fibrillation, not on anticoagulation secondary to unsteady gait and dementia, Parkinson's dementia, urinary retention, and history of urinary tract infections, who presented to emergency room with progressive weakness. He was found to have a urinary tract infection and urinary retention upon arrival. HOSPITAL COURSE: 1. Status post severe sepsis secondary to urinary tract infections, likely secondary to self-catheterizations. Presented with weakness and shaking. Urine cultures on 09/05/2016 and blood cultures on 09/05/2016 were positive for Escherichia (E) coli sensitive to ceftriaxone. Patient's white blood cell count and CRPs were improving throughout the hospital course. Blood cultures on 09/10/2016 were negative. Antibiotics were changed to oral cefdinir. He has completed a total course of 9 days of antibiotics. He will not be going home with antibiotics. Patient has been advised to followup with his primary care provider within next 7 days. He will be going to subacute rehabilitation center upon discharge. 2. Status post metabolic encephalopathy, likely secondary to severe sepsis. 3. Status post hyperkalemia. 4. Status post acute kidney injury, likely secondary to prerenal etiology secondary to dehydration. Status post IV fluid hydrations, and Dr. Multani's consultation was appreciated. 5. Hhm-udpyuyd-lemzapsju diabetes mellitus type 2. Continue with insulin sliding scale while inpatient. Will continue with insulin sliding scale while at long term. 6. Parkinson's disease/dementia. Continue with carbidopa/levadopa. 7. History of urinary tract infections. 8. Urinary retention. Chung catheter was present, has been discontinued, and patient has been advised to continue with intermittent self-catheterizations upon going to subacute rehabilitation center. Continue with Flomax. 9. Hyponatremia, mild. Remains stable. 10. Deep venous thrombosis (DVT) prophylaxis. Continue with heparin subcutaneous. DISCHARGE MEDICATIONS: Patient will be discharged home with the following medication list: - amlodipine 10 mg by mouth daily - aspirin 81 mg by mouth daily - carbidopa/levadopa 1.5 tablets by mouth four times a day - memantine 10 by mouth twice a day - multivitamins one tablet by mouth daily - omeprazole 20 mg by mouth daily - potassium chloride 20 mEq by mouth daily - primidone 50 mg by mouth twice a day - venlafaxine 75 mg by mouth twice a day Stopped medications include: - lisinopril 10 mg by mouth daily - metformin 500 mg by mouth twice a day New medications include: - insulin sliding scale to be taken as directed per meals and nightly - tamsulosin 0.4 mg by mouth daily DISCHARGE INSTRUCTIONS: Patient has been advised to followup with his primary care provider, nephrology, and urology within the next 7 days. He has been advised to remain compliant with treatment plan and medications and return to the emergency room if he experiences any problems. TIME SPENT ON DISCHARGE: 35 minutes. Edited: connor 09/15/2016 1522
--- NOTE | 2016-09-14 16:22 | IPN ---
DATE: 09/14/2016 Mr. Aguilar was initially seen for acute renal failure superimposed on chronic kidney disease. He had urosepsis which has been treated with antibiotics. He continues to have a Chung catheter with good urine output. His kidney function has improved and creatinine was 1.26 on September 12. For the last 2 days it has been to 1.35. His electrolytes are stable. The patient is currently undergoing subacute rehab. From renal standpoint, he does not need a daily followup. I am signing off. Please do not hesitate to call me back should you need any further assistance.
== END 2016-09-14 13:10 | DRG 698 ==
LOC: EDBD 14:31 → M ED 14:31 → M ED INP 19:43 → M PCU 09-06 02:59 → M MS5PR 09-12 19:51
PROVIDERS: ADMIT Hospitalist; ATTEND Internal Medicine
DX: T83.518A Infection and inflammatory reaction due to other urinary catheter, initial encounter (principal); G93.41 Metabolic encephalopathy; A41.51 Sepsis due to Escherichia coli [E. coli]; R65.20 Severe sepsis without septic shock; E87.1 Hypo-osmolality and hyponatremia; E87.2 Acidosis; N17.9 Acute kidney failure, unspecified; E11.65 Type 2 diabetes mellitus with hyperglycemia; I10 Essential (primary) hypertension; E86.0 Dehydration; G31.83 Neurocognitive disorder with Lewy bodies; N30.90 Cystitis, unspecified without hematuria; N18.3 Chronic kidney disease, stage 3 (moderate); E87.5 Hyperkalemia; F02.80 Dementia in other diseases classified elsewhere, unspecified severity, without behavioral disturbance, psychotic disturbance, mood disturbance, and anxiety; Y84.6 Urinary catheterization as the cause of abnormal reaction of the patient, or of later complication, without mention of misadventure at the time of the procedure; R33.9 Retention of urine, unspecified; I48.2 Chronic atrial fibrillation; R26.81 Unsteadiness on feet; Z79.84 Long term (current) use of oral hypoglycemic drugs; Z79.82 Long term (current) use of aspirin; Z79.899 Other long term (current) drug therapy

== ENCOUNTER → 2016-09-20 | Outpatient (REF) | payer MEDICARE, OTHER ==
[~2016-09-20] MED LIST changes: +ASPI81TA24 PO; +ATOR40TA75 PO; +FERR1TAB8 PO; +FLOM5CAP PO; +GLYB125TA PO; +INSUHUMDS SC; +MACR100C43 PO; +POTA20TA FT; +TELM1TAB PO; +VENL75CA47 PO; +VITMTA PO
== END ==
LOC: M SMT 13:10
PROVIDERS: ATTEND Nurse Practitioner Women's Health
DX: R33.9 Retention of urine, unspecified (principal)
CPT/HCPCS: 87088; 87186; G0463

== ENCOUNTER → 2016-09-21 | Outpatient (REF) ==
[2016-09-21 11:11] LABS: BASO % 0.3 % (0.0-1.0); EOS % 0.7 % (0.0-3.0); LARGE UNSTAINED CELL # 0.1 K/mm3 (0.0-0.4); LARGE UNSTAINED CELL % 0.9 % (0.0-4.0); LYMPH # 0.6 K/mm3 (1.5-4.5); LYMPH % 7.3 % (24.0-44.0); MEAN CORPUSCULAR HGB CONC 33.4 g/dl (32.0-36.5); MEAN CORPUSCULAR VOLUME 95.9 fl (80.0-96.0); MONO # 0.5 K/mm3 (0.0-0.8); MONO % 6.8 % (0.0-5.0); NEUTROPHILS # 6.6 K/mm3 (1.8-7.7); PLATELET COUNT, AUTOMATED 381 k/mm3 (150-450); RED CELL DISTRIBUTION WIDTH 13.2 % (11.5-14.5); WHITE BLOOD COUNT 7.9 K/mm3 (4.0-10.0)
[2016-09-21 14:44] LABS: ALBUMIN 2.8 GM/DL (3.2-5.2); CALCIUM LEVEL 8.4 MG/DL (8.8-10.2); CREATININE FOR GFR 1.4 MG/DL (0.70-1.30); GLOMERULAR FILTRATION RATE 52.3 (>42); PHOSPHORUS LEVEL 3.4 MG/DL (2.5-4.9)
== END ==
PROVIDERS: ATTEND Internal Medicine
DX: D63.1 Anemia in chronic kidney disease (principal); N18.3 Chronic kidney disease, stage 3 (moderate); N17.9 Acute kidney failure, unspecified; N25.81 Secondary hyperparathyroidism of renal origin

== ENCOUNTER → 2016-09-24 | Outpatient (REF) ==
[2016-09-24 10:55] LABS: CALCIUM LEVEL 8.4 MG/DL (8.8-10.2); CREATININE FOR GFR 1.47 MG/DL (0.70-1.30); GLOMERULAR FILTRATION RATE 49.5 (>42); PERCENT SATURATION 11.8 % (19.7-37.4); PHOSPHORUS LEVEL 3.4 MG/DL (2.5-4.9); POTASSIUM SERUM 4.6 MEQ/L (3.5-5.1)
== END ==
LOC: EEVIPCON 08:03
PROVIDERS: ATTEND Internal Medicine
DX: D64.9 Anemia, unspecified (principal)

== ENCOUNTER → 2016-09-25 | Outpatient (REF) ==
[2016-09-25 09:26] LABS: MEAN CORPUSCULAR HEMOGLOBIN 30.9 pg (27.0-33.0); MEAN CORPUSCULAR VOLUME 93.6 fl (80.0-96.0); RED CELL DISTRIBUTION WIDTH 12.5 % (11.5-14.5); WHITE BLOOD COUNT 7.2 K/mm3 (4.0-10.0)
[2016-09-25 09:40] LABS: CALCIUM LEVEL 8.7 MG/DL (8.8-10.2); CREATININE FOR GFR 1.27 MG/DL (0.70-1.30); GLOMERULAR FILTRATION RATE 58.5 (>42); POTASSIUM SERUM 4.5 MEQ/L (3.5-5.1)
== END ==
PROVIDERS: ATTEND Internal Medicine
DX: N18.9 Chronic kidney disease, unspecified (principal); D64.9 Anemia, unspecified

== ENCOUNTER → 2016-10-02 | Outpatient (REF) ==
[2016-10-02 11:35] LABS: MEAN CORPUSCULAR HGB CONC 32.6 g/dl (32.0-36.5); MEAN CORPUSCULAR VOLUME 95.2 fl (80.0-96.0); RED CELL DISTRIBUTION WIDTH 13.2 % (11.5-14.5); WHITE BLOOD COUNT 9.4 K/mm3 (4.0-10.0)
[2016-10-02 12:09] LABS: CALCIUM LEVEL 8.6 MG/DL (8.8-10.2); CREATININE FOR GFR 1.47 MG/DL (0.70-1.30); GLOMERULAR FILTRATION RATE 49.5 (>42); POTASSIUM SERUM 4.5 MEQ/L (3.5-5.1)
== END ==
PROVIDERS: ATTEND Internal Medicine
DX: N18.9 Chronic kidney disease, unspecified (principal)

== ENCOUNTER 2016-10-30 20:23 | Emergency (ER) | payer MEDICARE, OTHER ==
[~2016-10-30] VITALS: Ht 185.4 cm; Wt 90.0 kg
[~2016-10-30 20:23] MED LIST changes: -FERR1TAB8 PO; -MACR100C43 PO; -POTA20TA FT
[2016-10-30] MEDS ORDERED: POTA20TA FT (20:36)
[2016-10-30] MEDS ORDERED: LISI10TA4 PO (20:36)
[2016-10-30] MEDS ORDERED: FERR1TAB8 PO (20:36)
[2016-10-30 22:37] VITALS: BP 173/84
--- NOTE | 2016-10-31 08:02 | REP ---
KUB: Two views presented. HISTORY: Constipation versus obstruction. FINDINGS: Two views of the abdomen demonstrate moderate stool throughout the colon from cecum to rectum. No small bowel dilation is seen. There is a levoconvex curvature and fairly advanced degenerative disc disease in the lumbar spine. Arthritis is seen in both hips. There is vascular calcification. IMPRESSION: Constipation pattern. No small bowel dilation seen. Signed by Shabbir Miller MD 10/31/2016 08:02 A
== END 2016-10-30 23:07 | disposition home or self-care (01) ==
LOC: M ED 20:23
DX: K59.00 Constipation, unspecified (principal); E11.9 Type 2 diabetes mellitus without complications; I10 Essential (primary) hypertension; N40.1 Benign prostatic hyperplasia with lower urinary tract symptoms; Z87.891 Personal history of nicotine dependence

== ENCOUNTER → 2016-11-09 | Outpatient (REF) | payer MEDICARE, OTHER ==
[~2016-11-09] MED LIST changes: +ACET1TAB17 PO; +BISA10SU4 PR; +CLOP75TA2 PO; +ENEMENE16 PR; +FERR1TAB8 PO; +FOLI800C PO; +LIPI20TA PO; +MACR100C43 PO; +METH1TAB2 PO; +METO1TAB87 PO; +METO37.5 PO; +MILKSUS PO; +PANT20TA PO; +POTA20TA FT
== END ==
LOC: M LAB REF 14:30
PROVIDERS: ATTEND Family Medicine
DX: R53.81 Other malaise (principal)

== ENCOUNTER 2016-11-14 07:59 | Emergency (ER) | payer MEDICARE, OTHER ==
[~2016-11-14] VITALS: Ht 185.4 cm; Wt 85.8 kg
[~2016-11-14 07:59] MED LIST changes: -ACET1TAB17 PO; -BISA10SU4 PR; -CLOP75TA2 PO; -ENEMENE16 PR; -FOLI800C PO; -LIPI20TA PO; -MACR100C43 PO; -METH1TAB2 PO; -METO1TAB87 PO; -METO37.5 PO; -MILKSUS PO; -PANT20TA PO
[2016-11-14] MEDS ORDERED: MACR100C43 PO (08:27)
[2016-11-14 08:58] LABS: VENOUS BASE EXCESS -5.7 (-2.0-2.0); VENOUS O2 SATURATION 56.4 % (60.0-80.0); VENOUS PARTIAL PRESSURE CO2 43.6 mmHg (38.0-50.0); VENOUS PARTIAL PRESSURE O2 33.1 mmHg (30.0-50.0)
[2016-11-14 09:19] LABS: ALBUMIN 3.7 GM/DL (3.2-5.2); ALBUMIN/GLOBULIN RATIO 0.93 (1.00-1.93); BILIRUBIN,DIRECT 0.2 MG/DL (0.0-0.2); BILIRUBIN,TOTAL 0.7 MG/DL (0.2-1.0); CALCIUM LEVEL 8.6 MG/DL (8.8-10.2); CREATININE FOR GFR 1.91 MG/DL (0.70-1.30); GLOMERULAR FILTRATION RATE 36.6 (>42); POTASSIUM SERUM 4.4 MEQ/L (3.5-5.1); TOTAL PROTEIN 7.7 GM/DL (6.4-8.2)
[2016-11-14 09:23] LABS: BASO % 0.3 % (0.0-1.0); EOS # 0.1 K/mm3 (0.0-0.50); EOS % 0.7 % (0.0-3.0); LARGE UNSTAINED CELL # 0.2 K/mm3 (0.0-0.4); LARGE UNSTAINED CELL % 1.5 % (0.0-4.0); LYMPH # 0.5 K/mm3 (1.5-4.5); LYMPH % 4.4 % (24.0-44.0); MEAN CORPUSCULAR VOLUME 91.1 fl (80.0-96.0); MONO # 0.6 K/mm3 (0.0-0.8); MONO % 5.2 % (0.0-5.0); NEUTROPHILS # 10.8 K/mm3 (1.8-7.7); NEUTROPHILS % 87.9 % (36.0-66.0); PLATELET COUNT, AUTOMATED 244 k/mm3 (150-450); RED CELL DISTRIBUTION WIDTH 13.8 % (11.5-14.5); WHITE BLOOD COUNT 12.3 K/mm3 (4.0-10.0)
--- NOTE | 2016-11-14 09:26 | REP ---
PORTABLE CHEST X-RAY: Single view. HISTORY: Syncope. COMPARISON STUDY: September 05, 2016. FINDINGS: EKG monitoring electrodes overlie the chest. The heart is mildly enlarged unchanged. The patient is rotated slightly to the right. There is minimal linear fibrosis in the left base. No infiltrate is seen. IMPRESSION: No acute disease. Signed by Shabbir Miller MD 11/14/2016 09:54 A
[2016-11-14] MEDS ORDERED: HEPARIN DRIP 25,000 UNITS in APPROPRIATE DILUENT 1 EA IV SCH (11:56)
[2016-11-14] MEDS ORDERED: NS 1,000 ML IV SCH (12:00)
[2016-11-14] MEDS ORDERED: ASPIRIN 81 MG CHEW TABLET PO ONE (12:00)
[2016-11-14] MEDS ORDERED: HEPARIN SOD (PORCINE) 5000 UNITS/ML VIAL IV ONE (12:00)
[2016-11-14 12:13] LABS: INR 1.02
[2016-11-14 14:00] VITALS: BP 182/87
--- NOTE | 2016-11-15 18:24 | ECGEPIP ---
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
--- NOTE | 2016-11-15 18:24 | ECGEPIP ---
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
== END 2016-11-14 14:02 | disposition short-term general hospital (02) ==
LOC: M ED 07:59 → EDBD 07:59 → M ED 14:02
DX: I21.4 Non-ST elevation (NSTEMI) myocardial infarction (principal); N18.3 Chronic kidney disease, stage 3 (moderate); I12.9 Hypertensive chronic kidney disease with stage 1 through stage 4 chronic kidney disease, or unspecified chronic kidney disease; E11.9 Type 2 diabetes mellitus without complications; Z79.4 Long term (current) use of insulin

== ENCOUNTER → 2016-11-22 | Outpatient (REF) ==
[~2016-11-22] MED LIST changes: +ACET1TAB17 PO; +BISA10SU4 PR; +CLOP75TA2 PO; +ENEMENE16 PR; +FOLI800C PO; +LIPI20TA PO; +MACR100C43 PO; +METH1TAB2 PO; +METO1TAB87 PO; +METO37.5 PO; +MILKSUS PO; +PANT20TA PO
[2016-11-22 11:03] LABS: MEAN CORPUSCULAR HEMOGLOBIN 30.7 pg (27.0-33.0); MEAN CORPUSCULAR HGB CONC 33.4 g/dl (32.0-36.5); MEAN CORPUSCULAR VOLUME 91.7 fl (80.0-96.0); WHITE BLOOD COUNT 7.6 K/mm3 (4.0-10.0)
[2016-11-22 11:09] LABS: CALCIUM LEVEL 8.3 MG/DL (8.8-10.2); CREATININE FOR GFR 1.31 MG/DL (0.70-1.30); GLOMERULAR FILTRATION RATE 56.5 (>42); POTASSIUM SERUM 4.3 MEQ/L (3.5-5.1)
== END ==
PROVIDERS: ATTEND Internal Medicine
DX: R53.83 Other fatigue (principal); Z53.9 Procedure and treatment not carried out, unspecified reason

== ENCOUNTER → 2016-11-26 | Outpatient (REF) ==
[2016-11-26 12:24] LABS: MEAN CORPUSCULAR HEMOGLOBIN 30.2 pg (27.0-33.0); MEAN CORPUSCULAR VOLUME 91.7 fl (80.0-96.0); RED CELL DISTRIBUTION WIDTH 13.9 % (11.5-14.5); WHITE BLOOD COUNT 10.6 K/mm3 (4.0-10.0)
[2016-11-26 12:56] LABS: CALCIUM LEVEL 8.3 MG/DL (8.8-10.2); CREATININE FOR GFR 1.4 MG/DL (0.70-1.30); GLOMERULAR FILTRATION RATE 52.3 (>42); POTASSIUM SERUM 4.2 MEQ/L (3.5-5.1)
== END ==
PROVIDERS: ATTEND Internal Medicine
DX: E86.0 Dehydration (principal)

== ENCOUNTER → 2016-11-28 | Outpatient (REF) ==
[2016-11-28 10:53] LABS: MEAN CORPUSCULAR HEMOGLOBIN 30.8 pg (27.0-33.0); MEAN CORPUSCULAR HGB CONC 34.2 g/dl (32.0-36.5); RED CELL DISTRIBUTION WIDTH 13.5 % (11.5-14.5); WHITE BLOOD COUNT 8.6 K/mm3 (4.0-10.0)
[2016-11-28 11:07] LABS: CALCIUM LEVEL 8.4 MG/DL (8.8-10.2); CREATININE FOR GFR 1.43 MG/DL (0.70-1.30); POTASSIUM SERUM 4.1 MEQ/L (3.5-5.1)
== END ==
PROVIDERS: ATTEND Internal Medicine
DX: I48.91 Unspecified atrial fibrillation (principal)

== ENCOUNTER → 2016-12-25 | Outpatient (REF) | payer MEDICARE, OTHER ==
[~2016-12-25] MED LIST changes: +Fosfomycin Tromethamine PO
[2016-12-25 12:35] LABS: CALCIUM OXALATE CRYSTALS SMALL
== END ==
PROVIDERS: ATTEND Internal Medicine
DX: R31.9 Hematuria, unspecified (principal)

== ENCOUNTER → 2016-12-26 | Outpatient (REF) ==
[~2016-12-26] MED LIST changes: -Fosfomycin Tromethamine PO
[2016-12-26 10:41] LABS: MEAN CORPUSCULAR HEMOGLOBIN 29.3 pg (27.0-33.0); MEAN CORPUSCULAR HGB CONC 32.1 g/dl (32.0-36.5); MEAN CORPUSCULAR VOLUME 91.2 fl (80.0-96.0); RED CELL DISTRIBUTION WIDTH 14.3 % (11.5-14.5); WHITE BLOOD COUNT 8.2 10^3/uL (4.0-10.0)
[2016-12-26 11:06] LABS: CALCIUM LEVEL 8.3 MG/DL (8.8-10.2); CREATININE FOR GFR 1.39 MG/DL (0.70-1.30); GLOMERULAR FILTRATION RATE 52.7 (>42)
== END ==
PROVIDERS: ATTEND Internal Medicine
DX: D64.9 Anemia, unspecified (principal)

== ENCOUNTER → 2017-01-11 | Outpatient (REF) | payer MEDICARE, OTHER ==
[~2017-01-11] MED LIST changes: +Fosfomycin Tromethamine PO
== END ==
PROVIDERS: ATTEND Internal Medicine
DX: E11.9 Type 2 diabetes mellitus without complications (principal)

== ENCOUNTER 2017-01-18 07:02 | Inpatient (IN) | payer MEDICARE, OTHER ==
[~2017-01-18] VITALS: Ht 185.4 cm; Wt 90.2 kg
[~2017-01-18 07:02] MED LIST changes: -ACET1TAB17 PO; -BISA10SU4 PR; -CLOP75TA2 PO; -ENEMENE16 PR; -FOLI800C PO; -Fosfomycin Tromethamine PO; -LIPI20TA PO; -METH1TAB2 PO; -METO1TAB87 PO; -METO37.5 PO; -MILKSUS PO; -PANT20TA PO
[2017-01-18 07:48] LABS: BASO # 0.1 10^3/uL (0.0-0.2); BASO % 0.6 % (0.0-1.0); EOS # 0.3 10^3/uL (0.0-0.50); EOS % 3.7 % (0.0-3.0); IMMATURE GRANULOCYTE % 0.4 % (0-0); LYMPH # 1.2 10^3/uL (1.5-4.5); LYMPH % 15.7 % (24.0-44.0); MEAN CORPUSCULAR HEMOGLOBIN 29.2 pg (27.0-33.0); MEAN CORPUSCULAR HGB CONC 32.1 g/dl (32.0-36.5); MEAN CORPUSCULAR VOLUME 90.8 fl (80.0-96.0); MONO # 0.7 10^3/uL (0.0-0.8); MONO % 8.6 % (0.0-5.0); NEUTROPHILS # 5.6 10^3/uL (1.8-7.7); PLATELET COUNT, AUTOMATED 246 10^3/uL (150-450); RED CELL DISTRIBUTION WIDTH 13.4 % (11.5-14.5); WHITE BLOOD COUNT 7.9 10^3/uL (4.0-10.0)
[2017-01-18 08:07] LABS: INR 1.05
[2017-01-18 08:13] LABS: ANION GAP 6 MEQ/L (8-16); BLOOD UREA NITROGEN 30 MG/DL (7-18); CARBON DIOXIDE LEVEL 29 MEQ/L (21-32); CHLORIDE LEVEL 102 MEQ/L (98-107); CREATININE FOR GFR 1.22 MG/DL (0.70-1.30); GLOMERULAR FILTRATION RATE > 60.0 (>42); GLUCOSE, FASTING 133 MG/DL (83-110); POTASSIUM SERUM 4.5 MEQ/L (3.5-5.1); SODIUM LEVEL 137 MEQ/L (136-145)
--- NOTE | 2017-01-18 08:44 | REP ---
CT abdomen and pelvis without IV or oral contrast: History: Luis Alfredo hematuria. Question mass. Comparison study: March 01, 2016. CT findings: Preliminary digital cabin equipment supervisor radiograph demonstrates a levoconvex curve in the lumbar spine along with degenerative change. The lung bases show evidence of COPD and bibasilar interstitial pulmonary fibrosis which may be slightly more pronounced than on the comparison CT. There is a small bullous in the left lower lobe again noted. No pleural effusion or pericardial effusion is seen. No focal hepatic or splenic lesion is seen. There is calcific material layering in the dependent portion of the gallbladder consistent with gravel like stones. No adrenal lesion is seen. No pancreatic abnormality is observed. There is no evidence of hydronephrosis on either side. Mild vascular calcification and bilateral renal cortical atrophy is seen. No renal mass lesion is observed. No retroperitoneal mass is seen. There is, however, an abdominal aortic aneurysm again noted measuring 4.7 cm in greatest anteroposterior dimension by 4.2 cm medial to lateral. There is also aneurysmal dilation of the common iliac artery on the left measuring up to 2.6 cm. These findings are unchanged. There is left colonic diverticulosis without CT evidence of diverticulitis. Normal appendix is seen. The urinary bladder contains a Chung catheter and some air along with hyperdense fluid consistent with blood. No definite bladder mass is seen. Prostate and seminal vesicles are unremarkable. Bone window settings show no bony destructive lesion. Impression: 1. Hyperattenuating fluid in the urinary bladder consistent with blood. Chung catheter. No urinary tract mass visible. 2. No hydronephrosis or urinary calculus. 3. Abdominal aortic aneurysm measuring 4.7 x 4.2 cm, previously 4.3 x 4.0 by my measurement. Slightly larger. Stable left common iliac artery aneurysm. 4. Cholelithiasis. 5. Left colonic diverticulosis. Signed by Shabbir Miller MD 01/18/2017 01:10 P
[2017-01-18] MEDS ORDERED: METO37.5 PO (08:52)
[2017-01-18] MEDS ORDERED: PANT20TA PO (08:52)
[2017-01-18] MEDS ORDERED: FOLI800C PO (08:52)
[2017-01-18] MEDS ORDERED: CLOP75TA2 PO (08:52)
[2017-01-18] MEDS ORDERED: LIPI20TA PO (08:52)
[2017-01-18] MEDS ORDERED: amLODIPine 10 MG TAB PO SCH (09:00)
[2017-01-18] MEDS ORDERED: PANTOPRAZOLE 20 MG TAB PO SCH (09:00)
[2017-01-18] MEDS ORDERED: ONDANSETRON 4MG/2ML VIAL (J2405) IV PRN (11:30)
[2017-01-18] MEDS ORDERED: GLUCAGON FOR INJ 1 MG VIAL (J1610) SC PRN (11:30)
[2017-01-18] MEDS ORDERED: GLUCOSE 4 GM CHEW TABLET PO PRN (11:30)
[2017-01-18] MEDS ORDERED: ACETAMINOPHEN TAB 650MG DOSE (2X325MG) PO PRN (11:30)
[2017-01-18] MEDS ORDERED: DEXTROSE 50% 50 ML SYRINGE IV PRN (11:30)
[2017-01-18] MEDS ORDERED: FOLI1TAB4 PO (11:34)
[2017-01-18] MEDS ORDERED: BISA10SU4 PR (11:34)
[2017-01-18] MEDS ORDERED: ENEMENE16 PR (11:34)
[2017-01-18] MEDS ORDERED: MILKSUS PO (11:34)
[2017-01-18] MEDS ORDERED: ACET1TAB17 PO (11:34)
[2017-01-18] MEDS ORDERED: METO1TAB87 PO (11:34)
[2017-01-18] MEDS ORDERED: BISACODYL 10 MG SUPP PR PRN (11:45)
[2017-01-18] MEDS ORDERED: MOM 30ML SUSPENSION UDC PO PRN (11:45)
[2017-01-18] MEDS ORDERED: ERTAPENEM SODIUM 1 GM in NS MINI-BAG PLUS 50 ML IV SCH (12:00)
[2017-01-18] MEDS ORDERED: hydrALAZINE INJ 20 MG/ML VIAL IV ONE (12:00)
--- NOTE | 2017-01-18 12:45 | ECGEPIP ---
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
[2017-01-18 13:10] VITALS: BP 164/72
[2017-01-18] MEDS ORDERED: amLODIPine 10 MG TAB PO ONE (13:30)
[2017-01-18] MEDS: LR 1,000 ML IV SCH (13:39)
[2017-01-18] MEDS: SINEMET 25-100 MG TAB PO SCH ×3 (14:19→21:45)
[2017-01-18] MEDS: FOLIC ACID 1 MG TAB PO SCH (14:20)
[2017-01-18] MEDS: POTASSIUM CHLORIDE 10 MEQ SR TABLET PO SCH (14:21)
[2017-01-18] MEDS: HumaLOG INSULIN (NovoLOG) PER UNIT SC SCH ×3 (14:28→20:59)
[2017-01-18] MEDS: ERTAPENEM SODIUM 1 GM in NS MINI-BAG PLUS 50 ML IV SCH (15:23)
[2017-01-18] MEDS: PANTOPRAZOLE 20 MG TAB PO SCH (15:23)
[2017-01-18 16:00] VITALS: BP 149/67
[2017-01-18 17:45] VITALS: BP 132/78
[2017-01-18] MEDS: hydrALAZINE INJ 20 MG/ML VIAL IV SCH ×2 (17:57→23:39)
[2017-01-18] MEDS ORDERED: hydrALAZINE INJ 20 MG/ML VIAL IV SCH (18:00)
[2017-01-18 20:00] VITALS: BP 116/54
[2017-01-18] MEDS: SENOKOT S TAB PO SCH (21:45)
[2017-01-18] MEDS: PRIMIDONE 50 MG TAB PO SCH (21:45)
[2017-01-18] MEDS: VENLAFAXINE **XR** 75MG CAPSULE PO SCH (21:46)
[2017-01-18] MEDS: METOPROLOL TART 12.5 MG PER 1/2 TAB PO SCH (21:46)
[2017-01-18] MEDS: ATORVASTATIN 20 MG TAB PO SCH (21:46)
[2017-01-18 23:59] VITALS: BP 146/66
[2017-01-19] MEDS: LR 1,000 ML IV SCH ×2 (00:50→12:32)
[2017-01-19 03:00] VITALS: BP 150/78
[2017-01-19 03:16] LABS: MEAN CORPUSCULAR HEMOGLOBIN 29.7 pg (27.0-33.0); MEAN CORPUSCULAR HGB CONC 32.4 g/dl (32.0-36.5); MEAN CORPUSCULAR VOLUME 91.6 fl (80.0-96.0); PLATELET COUNT, AUTOMATED 242 10^3/uL (150-450); RED CELL DISTRIBUTION WIDTH 13.6 % (11.5-14.5); WHITE BLOOD COUNT 10.2 10^3/uL (4.0-10.0)
[2017-01-19] MEDS: PERCOCET 5MG/325MG TAB PO PRN ×2 (03:47→12:45)
[2017-01-19 03:48] LABS: CALCIUM LEVEL 8.6 MG/DL (8.8-10.2); CREATININE FOR GFR 1.55 MG/DL (0.70-1.30); GLOMERULAR FILTRATION RATE 46.4 (>42); MAGNESIUM LEVEL 1.7 MG/DL (1.8-2.4); POTASSIUM SERUM 4.2 MEQ/L (3.5-5.1)
[2017-01-19] MEDS: hydrALAZINE INJ 20 MG/ML VIAL IV SCH ×3 (06:00→17:58)
[2017-01-19] MEDS ORDERED: MAG SULF 1GM/100ML (MAG RUN) 1 GM in APPROPRIATE DILUENT 1 EA IV ONE (07:45)
[2017-01-19 08:00] VITALS: BP 146/76
[2017-01-19] MEDS: HumaLOG INSULIN (NovoLOG) PER UNIT SC SCH ×4 (08:43→20:51)
[2017-01-19] MEDS: amLODIPine 10 MG TAB PO SCH (08:45)
[2017-01-19] MEDS: METOPROLOL TART 12.5 MG PER 1/2 TAB PO SCH ×2 (08:45→20:50)
[2017-01-19] MEDS: SENOKOT S TAB PO SCH ×2 (08:46→20:50)
[2017-01-19] MEDS: PANTOPRAZOLE 20 MG TAB PO SCH (08:46)
[2017-01-19] MEDS: SINEMET 25-100 MG TAB PO SCH ×4 (08:46→20:50)
[2017-01-19] MEDS: FOLIC ACID 1 MG TAB PO SCH (08:46)
[2017-01-19] MEDS: POTASSIUM CHLORIDE 10 MEQ SR TABLET PO SCH (08:46)
--- NOTE | 2017-01-19 10:28 | REP ---
RENAL ULTRASOUND: HISTORY: Hematuria. COMPARISON: 09/05/2016. The kidneys are normal in echogenicity. The right kidney measures 5 cm in transverse x 4.5 cm in AP x 10.8 cm in cephalocaudal dimensions. The left kidney measures 3.7 cm in transverse x 4.5 cm in AP x 9.6 cm in cephalocaudal dimensions. There is no hydronephrosis or mass. A Chung catheter is present in the urinary bladder. Blood or debris is present in the urinary bladder. IMPRESSION: There is blood or debris in the urinary bladder. A Chung catheter is present. Signed by Jg Tellez MD 01/19/2017 10:31 A
[2017-01-19 11:32] LABS: INR 1.08
--- NOTE | 2017-01-19 11:57 | IPNPDOC ---
Text Note Date of Service The patient was seen on 01/19/17. NOTE No acute events overnight. undergoing CBI draining pink urine. reported feeling better, sitting at the edge of the bed. Denied CVA pain, CP, f/c/n/v/sob. Reported mild suprapubic burning sensation Gen Alert, NAD, comfortable HEEN NC AT mmm neck suppler PUL cta b/l Car irregularly irregular 2/6 murmur systolic , non tachy Abd sot NT ND +BS ext no edema b/l le A/P 76 M h/o NIDDM, HTN, Parkinson's disease, Dementia, Urinary retention with chronic arnold and ESBL recurrent UTI, a fib not on AC 2/2 to periods of AMS and fall recent treated for UTI, presented for hematuria Hematuria 2/2 to hemorrhagic cyctitis vs plavis & asa hold asa ,plavix consented for transfusion urology consult, CBI, serial hh f/u BP IVF UA, UC, Ertapenem consulted ID UTI with ESBL chronic arnold consulted ID Ertapenem f/u cultures HTN urgency con't bp meds hydralazine IV as needed c/w home meds NIDDM fs a1c insulin as per protocol Parkinson c/w meds Demential c/w meds supportive care PT A fib no AC 2/2 to fall risk c.w bb Cardio vascular disease hold asa plavix given hematuria statin bb DVT ppx Teds scd, no AC given bleeding Dispo pending urology, ID culture clinical improvment VS,Fishbone, I+O VS, Fishbone, I+O Laboratory Tests 01/18/17 13:59 01/18/17 19:57 01/19/17 03:08 Red Blood Count 4.07 L, Mean Corpuscular Volume 91.6, Mean Corpuscular Hemoglobin 29.7, Mean Corpuscular Hemoglobin Concent 32.4, Red Cell Distribution Width 13.6, Calcium Level 8.6 L 01/19/17 08:16 Vital Signs Date Time Temp Pulse Resp B/P (MAP) Pulse Ox O2 Delivery O2 Flow Rate FiO2 01/19/17 08:45 146/76 01/19/17 08:00 97.0 87 18 99 Room Air I&O- Last 24 Hours up to 6 AM 01/20/17 06:00 Intake Total 360 ml Output Total 1800 ml Balance -1440 ml HE,SARATH MD Jan 19, 2017 11:57
[2017-01-19 12:00] VITALS: BP 134/60
[2017-01-19 14:17] LABS: CALCIUM LEVEL 8.7 MG/DL (8.8-10.2); CREATININE FOR GFR 1.47 MG/DL (0.70-1.30); GLOMERULAR FILTRATION RATE 49.3 (>42); POTASSIUM SERUM 4.2 MEQ/L (3.5-5.1)
[2017-01-19] MEDS: VENLAFAXINE **XR** 75MG CAPSULE PO SCH ×2 (14:24→20:50)
[2017-01-19] MEDS: PRIMIDONE 50 MG TAB PO SCH ×2 (14:25→20:51)
[2017-01-19] MEDS: ERTAPENEM SODIUM 1 GM in NS MINI-BAG PLUS 50 ML IV SCH (14:27)
--- NOTE | 2017-01-19 15:27 | CR ---
DATE OF CONSULTATION: 01/18/2017 REASON FOR CONSULTATION: Gross hematuria. HISTORY OF PRESENT ILLNESS: The patient is a 76-year-old gentleman who came through the emergency room today with gross hematuria through an indwelling Chung catheter. The patient is well-known to the urology clinic and has been in urinary retention for at least 2 years originally on clean intermittent catheterization. A few months ago he had an infection with urosepsis and a Chung catheter was placed then and he has been at the [facility] for rehab. It sounds as though he has had the catheter changed but all of a sudden developed gross hematuria. In the emergency room, they attempted to irrigate the catheter that was in place and they only got a few amount of clots. They then decided to change the catheter to an #18-Malay three-way Chung catheter and they started continuous bladder irrigation until the urine did clear completely but as soon as they stopped the continuous bladder irrigation, the bleeding restarted. Urology was called. I hand irrigated the catheter and there were no clots, so we restarted continuous bladder irrigation and the patient will be admitted for this. PAST MEDICAL HISTORY: Parkinson's disease. Atrial fibrillation on Plavix. Type 2 diabetes. Dementia. History of pneumonia. History of recurrent UTIs with septicemia. PAST SURGICAL HISTORY: Bilateral hernia repair. Left knee surgery Biopsy on his scalp. HOME MEDICATIONS: - memantine hydrochloride - potassium chloride - primidone - Carbidopa/levadopa - aspirin - venlafaxine - amlodipine - pantoprazole - clopidogrel - Lipitor - folic acid - metoprolol - bowel remedies. ALLERGIES: No known drug allergies. SOCIAL HISTORY: He is a former smoker but it has been over 10 years since he last smoked. He drinks two sodas daily. He is . REVIEW OF SYSTEMS: He denies any lower abdominal pain, flank pain or other significant issues. He is alert and oriented, though at this point and his 12 system review was otherwise negative. PHYSICAL EXAMINATION: This is a well-developed, well-nourished gentleman lying in the emergency room alert and oriented times three. He is afebrile. His blood pressure is 142/95 and his pulse is 63. His respiratory rate is 18. His eyes are pupils equal, round, and reactive to light and extraocular muscles intact. His neck is supple and there is no significant supraclavicular or cervical adenopathy. His heart is year regular. His lungs are clear to auscultation and percussion. He has no CVA tenderness. His abdomen is otherwise soft and nontender. A Chung catheter is in place with dark red urine but he is off the continuous bladder irrigation right now. His extremities show no cyanosis, clubbing or edema. LABORATORY DATA: His white blood count is 7.9. His hemoglobin and hematocrit is 12.1/37.7 and his platelets are 246. A urine culture from 01/10/2017 showed E-coli. His creatinine was elevated previously but now is 1.22. His BUN is 30 and his white blood count is 7.9. A CT scan of the abdomen and pelvis done 01/18/2017 showed blood in the bladder but without any hydroureteronephrosis and no renal or ureteral stones. He did have a abdominal aortic aneurysm (AAA) measuring 4.7 cm and cholelithiasis. I hand irrigated the catheter and did not get any blood clots. When he was restarted on continuous bladder irrigation, the urine became a very light pink. I discussed with the patient that we will continue continuous bladder irrigation for now but if he develops clots or any other issues that we may need to bring him to the operating room at that time. IMPRESSION: 1. Gross hematuria in a patient with an indwelling Chung catheter. 2. History of urinary retention the last 2 years. The patient and was previously doing clean intermittent catheterization but has had a Chung since urosepsis several months ago while recovering at [facility] 3. Major medical problems including but not limited to Parkinson's disease, dementia, and atrial fibrillation on Plavix. PLAN: 1. Recommend continuous bladder irrigation and hand irrigating the catheter as needed to await final urine cultures and treat any infections accordingly. and 2. Continue supportive care.
[2017-01-19 16:00] VITALS: BP 167/72
--- NOTE | 2017-01-19 20:03 | IPN ---
DATE: 01/19/2017. SUBJECTIVE: The patient was lying comfortably in bed and his continuous bladder irrigation is just at a drip and the urine is normal color in the tubing and looks a little dark in the bag, but he has had no clots overnight. OBJECTIVE: His temperature maximum (T-max) was 98.7 and is now 97. His blood pressure is 146/76 and his pulse is 87. He has no costovertebral angle tenderness and his abdomen is soft and nontender. LABORATORY DATA: His hemoglobin and hematocrit are stable at 13.3 and 35.3, with a white blood count of 10.2. His urine culture is still pending. IMPRESSION: 1. Gross hematuria in a patient with an indwelling Chung catheter secondary to urinary retention. PLAN: 1. Await final urine culture. 2. Continue very low continuous bladder irrigation until the urine is completely clear; then we will try to stop the continuous bladder irrigation and at some point, I would like to see the Chung catheter come out and the patient begin to do continuous bladder irrigation again.
[2017-01-19 20:05] VITALS: BP 156/71
--- NOTE | 2017-01-19 20:31 | HPE ---
DATE OF ADMISSION: 01/18/2017 PRIMARY CARE PROVIDER: Lobo Combs MD UROLOGIST: Saida Wu MD INFECTIOUS DISEASE SPECIALIST: Natalia Bhatia MD CHIEF COMPLAINT: Hematuria. HISTORY OF PRESENT ILLNESS: This is a 76-year-old male patient with underlying medical history non-insulin dependent diabetes mellitus, hypertension, Parkinson's disease, dementia, urinary retention, with urinary catheter with frequent urinary tract infection (UTI) with ESBL colonization, chronic atrial fibrillation (a-fib), not on anticoagulation due to fall risk and unsteady gait and history of altered mental status. The patient was recently treated with Escherichia (E.) coli UTI, also added to have Plavix from [facility], presented with persistent hematuria since 2:00 a.m. today. In te emergency department the patient had continuous bladder irrigation, but despite best effort, every time the urine turns pink, and the irrigation was stopped, the patient developed kaia hematuria again with cough. Subsequently urology, Dr. Wu was consulted. Hospitalist was requested to admit the patient. The patient denies any fevers, chills, chest pain, pressure, discomfort, shortness of breath. The patient is a very poor historian. Reported frequent UTI. Denies any abdominal pain, nausea or vomiting, flank pain, chronic Chung. Denies any diarrhea. ALLERGIES: No known drug allergies. PAST MEDICAL HISTORY: Non-insulin dependent diabetes mellitus. Hypertension. Parkinson's disease. Dementia. Urinary retention. UTI. Atrial fibrillation, chronic, not on anticoagulation. Frequent E. coli ESBL UTI infection. Abdominal aortic aneurysm. PAST SURGICAL HISTORY: Hernia repair times two. Left knee surgery. Carotid endarterectomy. FAMILY HISTORY: One son with testicular cancer. SOCIAL HISTORY: The patient does not smoke, use alcohol beverages, or illicit drug use. Recently lost his April 2016. Currently at correction at [facility]. REVIEW OF SYSTEMS: Reported hematuria, chronic Chung. Poor historian. All other review of systems are negative. HOME MEDICATIONS: - acetaminophen 650 mg every 4 hours as needed - Norvasc 10 mg by mouth daily - aspirin 81 mg by mouth daily - Lipitor 20 mg by mouth at bedtime - docusate 10 mg per rectal daily as needed - Sinemet 25/100 1.5 capsules by mouth four times a day - Plavix 75 mg by mouth daily - folic acid 1 mg by mouth daily - 10 mg by mouth twice a day - metoprolol 12.5 mg by mouth twice a day - milk of magnesia 30 mL by mouth daily as needed - Protonix 20 mg by mouth daily - potassium chloride 10 mEq by mouth daily - Primidone 50 mg by mouth twice a day - enema as needed daily - venlafaxine (Effexor) 75 mg by mouth twice a day PHYSICAL EXAMINATION: Temperature 97.8, pulse 88, respirations 18, blood pressure 160/98, pulse oximetry 98% on room air. GENERAL: The patient alert, comfortable, in no acute distress. HEENT: Normocephalic, atraumatic. Pale. NECK: Supple. Old carotid endarterectomy scar noted. PULMONARY: Bilateral clear to auscultation. CARDIAC: Irregularly irregular. Non-tachycardia. ABDOMEN: Soft, nontender. No suprapubic tenderness. No costovertebral angle (CVA) tenderness. EXTREMITIES: No clubbing, cyanosis or edema. EKG: A-fib at rate of 80. No ST segment changes. LABORATORY: WBC 7.9, hemoglobin and hematocrit 12.1/37.7, platelet 246. Chemistry: Sodium 137, potassium 4.5, chloride 102, bicarbonate 29, BUN 30, creatinine 1.22. CT of the abdomen shows hyperattenuating fluid in the urinary bladder consistent with blood. Chung catheter. Hydronephrosis. No mass visible. Abdominal aortic aneurysm measuring 4.7 x 4.2. Previously 4.3 x 4. ASSESSMENT AND PLAN: This is a 76-year-old male patient with underlying medical history of abdominal aortic aneurysm, non-insulin dependent diabetes mellitus, hypertension, Parkinson's disease, dementia, UTI, urinary retention, chronic Chung with frequent ESBL E. Coli, atrial fibrillation, chronic, not on anticoagulation due to episodes of altered mental status, and gait instability, also abdominal aortic aneurysm, presented with hematuria. PROBLEMS: 1. Hematuria. Possibly secondary to aspirin and Plavix with component of cystitis. Due to recent culture, the patient started on ertapenem. Infectious disease consulted. Cultures were sent. IV fluid. Continuous bladder irrigation. Urology consulted. Monitor hemoglobin and hematocrit. Patient is consented for transfusion. 2. Hypertensive urgency. Blood pressure has improved without any intervention. Continue home oral medication. Monitor blood pressure. 3. Abdominal aortic aneurysm. Need outpatient followup. 4. Non-insulin dependent diabetes. Followup fingersticks. Insulin as per protocol. Followup A1c. 5. Hypertension. Continue home medication. Hydralazine for blood pressure greater than 160. 6. Parkinson's disease. Continue home medications. 7. Dementia. Continue home medications. 8. Urinary retention. Patient has a Chung. Chronic atrial fibrillation. Continue home medication. Telemetry monitoring. 9. Deep venous thrombosis (DVT) prophylaxis. Sequentials with compression device. Avoid anticoagulation given the patient has active hematuria. 10. Cardiovascular disease. Holding aspirin and Plavix. Continue statin. Holding aspirin and Plavix given bleeding. 11. Hematuria. Continue beta lincoln, statin. DISPOSITION: Pending clinical improvement, infectious disease and urology recommendation.
[2017-01-19] MEDS: ATORVASTATIN 20 MG TAB PO SCH (20:51)
[2017-01-19 23:30] VITALS: BP 169/80
[2017-01-20] MEDS: PERCOCET 5MG/325MG TAB PO PRN ×2 (00:23→23:25)
[2017-01-20] MEDS: hydrALAZINE INJ 20 MG/ML VIAL IV SCH ×5 (00:31→23:36)
[2017-01-20] MEDS: LIDOCAINE 2% JELLY 30 ML TOP PRN (01:14)
[2017-01-20] MEDS: LR 1,000 ML IV SCH ×2 (02:01→14:59)
[2017-01-20 03:22] LABS: MEAN CORPUSCULAR HEMOGLOBIN 29.7 pg (27.0-33.0); MEAN CORPUSCULAR VOLUME 89.8 fl (80.0-96.0); PLATELET COUNT, AUTOMATED 203 10^3/uL (150-450); RED CELL DISTRIBUTION WIDTH 13.7 % (11.5-14.5)
[2017-01-20 03:41] LABS: ANION GAP 5 MEQ/L (8-16); BLOOD UREA NITROGEN 31 MG/DL (7-18); CALCIUM LEVEL 8.4 MG/DL (8.8-10.2); CARBON DIOXIDE LEVEL 30 MEQ/L (21-32); CHLORIDE LEVEL 102 MEQ/L (98-107); CREATININE FOR GFR 1.12 MG/DL (0.70-1.30); GLOMERULAR FILTRATION RATE > 60.0 (>42); GLUCOSE, FASTING 114 MG/DL (83-110); MAGNESIUM LEVEL 1.8 MG/DL (1.8-2.4); POTASSIUM SERUM 4.1 MEQ/L (3.5-5.1); SODIUM LEVEL 137 MEQ/L (136-145)
[2017-01-20 06:00] VITALS: BP 136/62
[2017-01-20 08:00] VITALS: BP 160/72
[2017-01-20] MEDS: HumaLOG INSULIN (NovoLOG) PER UNIT SC SCH ×4 (09:07→20:26)
[2017-01-20] MEDS: METOPROLOL TART 12.5 MG PER 1/2 TAB PO SCH ×2 (09:08→20:26)
[2017-01-20] MEDS: SENOKOT S TAB PO SCH ×2 (09:09→20:26)
[2017-01-20] MEDS: PRIMIDONE 50 MG TAB PO SCH ×2 (09:09→20:25)
[2017-01-20] MEDS: SINEMET 25-100 MG TAB PO SCH ×4 (09:09→20:26)
[2017-01-20] MEDS: VENLAFAXINE **XR** 75MG CAPSULE PO SCH ×2 (09:10→20:26)
[2017-01-20] MEDS: PANTOPRAZOLE 20 MG TAB PO SCH (09:10)
[2017-01-20] MEDS: amLODIPine 10 MG TAB PO SCH (09:10)
[2017-01-20] MEDS: POTASSIUM CHLORIDE 10 MEQ SR TABLET PO SCH (09:10)
[2017-01-20] MEDS: FOLIC ACID 1 MG TAB PO SCH (09:10)
--- NOTE | 2017-01-20 09:56 | IPNPDOC ---
Text Note Date of Service The patient was seen on 01/20/17. NOTE No acute events overnight. undergoing CBI draining clear urine. reported feeling better. Denied CVA pain, CP, f/c/n/v/sob. Reported mild suprapubic burning sensation Gen Alert, NAD, comfortable HEEN NC AT mmm neck suppler PUL cta b/l Car irregularly irregular 2/6 murmur systolic , non tachy Abd sot NT ND +BS ext no edema b/l le A/P 76 M h/o NIDDM, HTN, Parkinson's disease, Dementia, Urinary retention with chronic arnold and ESBL recurrent UTI, a fib not on AC 2/2 to periods of AMS and fall recent treated for UTI, presented for hematuria Hematuria 2/2 to hemorrhagic cyctitis vs plavis & asa hold asa ,plavix consented for transfusion urology consult, CBI, serial hh f/u BP IVF UA, UC, Ertapenem consulted ID as per urology if hematuria resolves for 24 hrs rec intermittent cath, believed that chronic arnold is the cause of hematuria UTI with ESBL chronic arnold consulted ID Ertapenem f/u cultures HTN urgency resolved con't bp meds hydralazine IV as needed c/w home meds NIDDM fs a1c insulin as per protocol Parkinson c/w meds Demential c/w meds supportive care PT A fib no AC 2/2 to fall risk c.w bb Cardio vascular disease hold asa plavix given hematuria statin bb DVT ppx Teds scd, no AC given bleeding Dispo urology, ID, culture clinical improvment, dc arnold after hematuria resolve for 24 hr, intermittent cath afterwards VS,Heather, I+O VS, Neele, I+O Laboratory Tests 01/19/17 13:40 Calcium Level 8.7 L 01/19/17 20:17 01/20/17 03:07 Calcium Level 8.4 L, Red Blood Count 3.74 L, Mean Corpuscular Volume 89.8, Mean Corpuscular Hemoglobin 29.7, Mean Corpuscular Hemoglobin Concent 33.0, Red Cell Distribution Width 13.7 01/20/17 07:34 Vital Signs Date Time Temp Pulse Resp B/P (MAP) Pulse Ox O2 Delivery O2 Flow Rate FiO2 01/20/17 09:10 76 160/72 01/20/17 08:00 97.2 16 92 01/20/17 06:00 Room Air I&O- Last 24 Hours up to 6 AM 01/21/17 06:00 Intake Total 0 ml Output Total 1250 ml Balance -1250 ml SARATH RICHARDS MD Jan 20, 2017 09:56
[2017-01-20 12:00] VITALS: BP 137/63
[2017-01-20] MEDS: ERTAPENEM SODIUM 1 GM in NS MINI-BAG PLUS 50 ML IV SCH (14:59)
[2017-01-20] MEDS ORDERED: METH1TAB2 PO (15:04)
[2017-01-20 16:00] VITALS: BP 145/71
[2017-01-20 20:15] VITALS: BP 153/68
--- NOTE | 2017-01-20 20:21 | IPN ---
DATE: 01/20/2017 SUBJECTIVE: The patient did have some blood clots yesterday requiring hand irrigation. Today with the urine on very low continuous bladder irrigation (CBI) it is now completely clear again, so we will try to decrease CBI again. The patient has been off his Plavix. He denies any significant discomfort except for some pain at the urethral meatus for which we started lidocaine jelly. OBJECTIVE: He is afebrile. His blood pressure is 137/63. His pulse is 71 and his respiratory rate is 17. He is alert and oriented times three. He has no costovertebral angle tenderness. His abdomen is soft and nontender. The urine is draining completely normal yellow urine, and his extremities show no cyanosis, clubbing or edema. LABORATORY DATA: His PT/PTT is 14.1 over 31 and his INR is 1.08. His BUN is 31 and his creatinine is down to 1.12. His hemoglobin and hematocrit (H and H) are lower at 10.5 and 31.9, down from 11.1 and 33.6 yesterday. The final urine culture from 01/18/2017, shows no growth. IMPRESSION: 1. Gross hematuria in a patient with an indwelling Chung catheter secondary to urinary retention but who used to be on clean intermittent catheterization (CIC). 2. History of recurrent urinary tract infections. PLAN: Recommend trying to discontinue the CBI when the urine stays completely clear and if this stays clear off his CBI then we will remove the Chung catheter and started clean intermittent catheterization. 2. Recommend starting methenamine 1 gram by mouth twice a day to help prevent recurrent infections in the future. 3. The patient to followup in urology in approximately two weeks since he did have an appointment this week but I want to see how he is doing once he resumes clean intermittent catheterization at least three times a day.
[2017-01-20] MEDS: ATORVASTATIN 20 MG TAB PO SCH (20:25)
[2017-01-20 23:28] VITALS: BP 138/62
[2017-01-21] MEDS: LR 1,000 ML IV SCH (02:01)
[2017-01-21 05:08] VITALS: BP 145/65
[2017-01-21 05:27] LABS: MEAN CORPUSCULAR HEMOGLOBIN 29.6 pg (27.0-33.0); MEAN CORPUSCULAR VOLUME 89.8 fl (80.0-96.0); PLATELET COUNT, AUTOMATED 184 10^3/uL (150-450); RED CELL DISTRIBUTION WIDTH 13.6 % (11.5-14.5); WHITE BLOOD COUNT 7.3 10^3/uL (4.0-10.0)
[2017-01-21 05:45] LABS: ANION GAP 7 MEQ/L (8-16); BLOOD UREA NITROGEN 28 MG/DL (7-18); CALCIUM LEVEL 8.2 MG/DL (8.8-10.2); CARBON DIOXIDE LEVEL 27 MEQ/L (21-32); CHLORIDE LEVEL 103 MEQ/L (98-107); CREATININE FOR GFR 1.13 MG/DL (0.70-1.30); GLOMERULAR FILTRATION RATE > 60.0 (>42); GLUCOSE, FASTING 114 MG/DL (83-110); MAGNESIUM LEVEL 1.8 MG/DL (1.8-2.4); POTASSIUM SERUM 4.4 MEQ/L (3.5-5.1); SODIUM LEVEL 137 MEQ/L (136-145)
[2017-01-21] MEDS: hydrALAZINE INJ 20 MG/ML VIAL IV SCH ×3 (06:00→17:53)
[2017-01-21 07:58] VITALS: BP 144/68
[2017-01-21] MEDS: METOPROLOL TART 12.5 MG PER 1/2 TAB PO SCH ×2 (08:48→21:15)
[2017-01-21] MEDS: HumaLOG INSULIN (NovoLOG) PER UNIT SC SCH ×4 (08:48→21:15)
[2017-01-21] MEDS: SINEMET 25-100 MG TAB PO SCH ×4 (08:49→21:15)
[2017-01-21] MEDS: LIDOCAINE 2% JELLY 30 ML TOP PRN (08:49)
[2017-01-21] MEDS: PRIMIDONE 50 MG TAB PO SCH ×2 (08:50→21:15)
[2017-01-21] MEDS: amLODIPine 10 MG TAB PO SCH (08:50)
[2017-01-21] MEDS: FOLIC ACID 1 MG TAB PO SCH (08:50)
[2017-01-21] MEDS: PANTOPRAZOLE 20 MG TAB PO SCH (08:50)
[2017-01-21] MEDS: VENLAFAXINE **XR** 75MG CAPSULE PO SCH ×2 (08:50→21:15)
[2017-01-21] MEDS: POTASSIUM CHLORIDE 10 MEQ SR TABLET PO SCH (08:50)
[2017-01-21] MEDS: SENOKOT S TAB PO SCH ×2 (08:50→21:15)
[2017-01-21 12:34] VITALS: BP 163/77
--- NOTE | 2017-01-21 14:14 | IPNPDOC ---
Subjective Date Seen The patient was seen on 01/21/17. Subjective Chief Complaint/HPI The patient is a 76-year-old male admitted with a reason for visit of Luis Alfredo Hematuria,Uti. States he has not noticed any more blood in urine. No acute complaints or problems overnight. Denies pain in body. Constitutional: Denies: Chills, Fever ENT: Denies: Dysphagia Pulmonary: Denies: Dyspnea, Cough Cardiovascular: Denies: Chest Pain, Palpitations, Edema, Lt Headedness Gastrointestinal: Denies: Nausea, Vomiting, Abdominal Pain Genitourinary: Denies: Hematuria Objective Physical Examination General Exam: Positive: Alert, Cooperative, No Acute Distress ENT Exam: Positive: Atraumatic Neck Exam: Positive: Supple, Negative: JVD, Lymphadenopathy Chest Exam: Positive: Clear to auscultation, Normal air movement, Negative: Wheezing Heart Exam: Positive: Irregular Rhythm, Normal S1, Normal S2, Murmurs (systolic ), Negative: Rate Normal (irregularly irregular) Abdomen Exam: Positive: Soft, Negative: Tenderness Extremity Exam: Negative: Cyanosis, Edema, Tenderness Skin Exam: Positive: Nl turgor and temperature Psych Exam: Positive: Mood NL, Oriented x 3 Assessment /Plan Assessment Hematuria, likely 2/2 to chronic Chung for urinary retention ASA/Plavix on hold consented for transfusion if need be serial H&H stable with Hg~10, Hct ~30 urology following. Per Urology, may start intermittent catheterization after 24 hours, if no hematuria present once CBI is stopped UTI from ESBL chronic Chung ID & Urology consulted Continue Ertapenem IV fluids d/donald today urine & blood cultures neg thus far HTN controlled on home meds Hydralazine IV DM ISS, not on Insulin at home Parkinson's Ds continue home meds AFib hx not on anticoagulation at home due to fall risk continue B-lincoln CAD ASA/Plavix on hold due to bleed on b-lincoln, statin DVT ppx JOSE ALFREDO/SCD, hold Lovenox/Heparin due to bleed Plan/VTE VTE Prophylaxis Ordered?: Yes VS, I&O, 24H, Fishbone Vital Signs/I&O Vital Signs Date Time Temp Pulse Resp B/P (MAP) Pulse Ox O2 Delivery O2 Flow Rate FiO2 01/21/17 07:58 97.0 78 19 144/68 (93) 97 Room Air I&O- Last 24 Hours up to 6 AM 01/22/17 06:00 Intake Total 0 ml Output Total 0 ml Balance 0 ml Laboratory Data 24H LABS Laboratory Tests 2 01/21/17 04:56: Nucleated Red Blood Cells % (auto) 0.0, Anion Gap 7L, Glomerular Filtration Rate > 60.0, Blood Urea Nitrogen 28H, Creatinine 1.13, Sodium Level 137, Potassium Level 4.4, Chloride Level 103, Carbon Dioxide Level 27, Calcium Level 8.2L, Magnesium Level 1.8 CBC/BMP Laboratory Tests 01/21/17 04:56 Red Blood Count 3.24 L, Mean Corpuscular Volume 89.8, Mean Corpuscular Hemoglobin 29.6, Mean Corpuscular Hemoglobin Concent 33.0, Red Cell Distribution Width 13.6, Calcium Level 8.2 L Microbiology Microbiology 01/18/17 Blood Culture - Preliminary, Resulted No Growth after 48 hours. All Specime... 01/18/17 Blood Culture - Preliminary, Resulted No Growth after 48 hours. All Specime... 01/18/17 Urine Culture - Final, Complete GME ATTESTATION GME ATTESTATION My preceptor for this patient encounter was physically present in the building during the encounter and was fully available. As needed, all aspects of the patient interview, examination, medical decision making process, and medical care plan development were reviewed and approved by the preceptor. Preceptor is aware and concurs with the plan as stated in the body of this note and will attest to such by his/her cosignature. ATTENDING NOTE I have both independently examined this patient as well as reviewed the note. I have discussed in detail with the resident the findings and plan of treatment as documented in the residents note. I will continue to follow the patient and offer further guidance to the patients care as necessary during this hospital stay. ELHAM Rivera MD, DO Jan 21, 2017 08:43 SARATH RICHARDS MD Jan 22, 2017 11:57
--- NOTE | 2017-01-21 14:26 | IPN ---
DATE: 01/21/2017 Mr. Aguilar has been doing well on low continuous bladder irrigation (CBI), except he did have some blood clots this morning that needed to be hand irrigated. It sounded like there were two or three. CBI is now off and the urine is clear. He has no real complaints. PHYSICAL EXAMINATION: He is afebrile at 97.5. His blood pressure is 163/77. His pulse is 68. He has no costovertebral angle (CVA) tenderness and his abdomen is soft and nontender. His urine is draining clear yellow urine on very low CBI; again, because of blood clots this morning. LABORATORY DATA: His hemoglobin and hematocrit (H and H) this morning is 9.6 over 29.1, down from 10.5 and 31.9 yesterday. His urine culture showed no growth. His BUN and creatinine are stable at 28 over 1.13. IMPRESSION: Gross hematuria in a patient with an indwelling Chung catheter secondary to recurrent urinary tract infections, but he had been on CIC for incomplete bladder emptying for at least 2 years. PLAN: 1. If the bleeding stops without any need for clot irrigation, we will plan on removing the catheter tomorrow morning and reinstituting continuous clean intermittent catheterization. 2. Recommend prevention of recurrent urinary tract infections with methenamine 1 gram by mouth twice a day which was already sent electronically to [facility].
[2017-01-21] MEDS: ERTAPENEM SODIUM 1 GM in NS MINI-BAG PLUS 50 ML IV SCH (15:30)
[2017-01-21 16:23] VITALS: BP 156/72
--- NOTE | 2017-01-21 17:47 | IPN ---
DATE: 01/21/2017 Mr. Aguilar seems to be doing well. He is hungry. He was eating his dinner. He denies any nausea, vomiting, diarrhea, fever or chills. He has been afebrile throughout this admission. Hematuria has resolved. Temperature is 97.6, pulse 74, respirations 18, blood pressure 156/72, oxygen saturation 98% on room air. Heart normal S1, S2. Lungs are clear. Abdomen is soft, nontender. No suprapubic tenderness. Extremities no edema. LABORATORY DATA: White count 7.3, hemoglobin 9.6, hematocrit 29.1, platelets 184. Sodium 137, potassium 4.4, chloride 103, bicarbonate 27, BUN 28, creatinine 1.1, glucose 114, calcium 8.2. Urine culture done on 01/18/2017, that was after the bladder was flushed multiple times, was negative. Urine culture from 01/10/2017, had E-coli and ESBL. Blood cultures two sets were negative. IMPRESSION: 1. Hemorrhagic cystitis with previous history of E-coli with ESBL positive. Has received 4 days of Invanz, doing much better. 2. Gross hematuria has resolved. PLAN: According to urology, if bleeding stops then they will remove the catheter and do intermittent catheterization. Discontinue IV Invanz, switch to fosfomycin 3 grams every other day for a total of three doses to finish course of treatment for ESBL E-coli.
[2017-01-21] MEDS: FOSFOMYCIN TROMETHAMINE 3 GM POWDER PACKET (MONUROL) PO SCH (18:40)
[2017-01-21 20:00] VITALS: BP 142/67
[2017-01-21] MEDS: ATORVASTATIN 20 MG TAB PO SCH (21:15)
[2017-01-21 21:24] VITALS: BP 140/78
--- NOTE | 2017-01-22 05:25 | CR ---
DATE OF CONSULTATION: 01/18/2017 REASON FOR CONSULTATION: Hemorrhagic cystitis with previous history of Escherichia (E.) coli, extended-spectrum beta-lactamase(ESBL) positive. HISTORY OF PRESENT ILLNESS: Mr. Aguilar is a 76-year-old gentleman with a history of chronic indwelling Chung catheter who has had over the past two months of recurrent E. coli urinary tract infection (UTI) with positive ESBL. The patient has had a history of urinary retention for the past two years, had originally intermittent catheterization but a few months ago he had urosepsis and the Chung catheter was kept in place. He lives at the [facility] and the patient developed gross hematuria the day prior to admission. There were clots in the bag and therefore the patient was admitted to the hospital. He denied having any fever or chills, nausea, vomiting or diarrhea. The patient did not have a repeat urine culture done on the day of admission, and he was started on intravenous (IV) ertapenem for presumptive urinary tract infection. PAST MEDICAL HISTORY: Significant for Parkinson's disease, atrial fibrillation on Plavix, type 2 diabetes, dementia, history of recurrent pneumonia and recurrent UTIs. PAST SURGICAL HISTORY: Bilateral hernia repair, left knee surgery, scalp biopsy. ALLERGIES: No known drug allergies. SOCIAL HISTORY: He is a former smoker but quit over 10 years ago. He does not drink. He is . REVIEW OF SYSTEMS: He had some abdominal pain mostly in the suprapubic area and around the penis but no flank pain. No fever or chills. No nausea, vomiting or diarrhea. He is alert and oriented. No cough or shortness of breath. PHYSICAL EXAMINATION: GENERAL: He is a healthy looking elderly man in no acute distress, alert and oriented times three. He is afebrile. HEART: Normal S1, S2 with a holosystolic murmur 2/6. LUNGS: Are clear. No wheezes or rhonchi. ABDOMEN: Soft, mildly tender in the suprapubic area. BACK: No costovertebral angle tenderness. GENITOURINARY: Chung catheter in place with kaia blood. EXTREMITIES: No clubbing, cyanosis or edema. HEENT: Oropharynx is clear. VITAL SIGNS: Temperature is 97.8, pulse 88, respirations 18, blood pressure 209/131, oxygen saturation 98% on room air. LABORATORY DATA: White count 7.9, hemoglobin 12.1, hematocrit 37.7, platelets 246. Sodium 137, potassium 4.5, chloride 102, bicarb 29, BUN 30, creatinine 1.2, glucose 133. MICROBIOLOGY: Urinalysis was done on 01/19 and had 16 white cells, too numerous to count red cells. Urine culture was sent on 01/18, was no growth. Blood cultures two sets were negative. IMAGING: Renal ultrasound showed blood or debris in the urinary bladder and a Chung catheter in place. Kidneys are normal echogenicity. No hydronephrosis. No masses seen. CT abdomen and pelvis done on 01/18 shows hyperattenuating fluid in the urinary bladder consistent with blood in Chung catheter. No hydronephrosis. An abdominal aortic aneurysm measuring 4.7 x 4.2 cm, slightly enlarged from previous study done 10 months prior, colonic diverticulosis and cholelithiasis. IMPRESSION: This is a 76-year-old gentleman with previous history of Escherichia (E.) coli, extended-spectrum beta-lactamase (ESBL) positive urinary tract infection, currently admitted to for gross hematuria. A repeat urine culture was not done prior to antibiotic. Now the bladder has been flushed and a repeat urine culture was sent but was negative. This was after antibiotics and after flushing of the bladder. I am not sure even that this admission is related to an infection versus bleeding from blood thinners. The patient will be treated with ertapenem to cover for ESBL E. coli. Repeat urine culture is pending. If he does not have any evidence of sepsis or pyelonephritis, the patient could be treated with outpatient fosfomycin for total of 7-10 days with 3 grams every 2-3 days for three to four doses. MEDICATIONS: - amlodipine 10 mg daily - lidocaine jelly as needed around the meatus - Senokot 1 tablet by mouth twice a day - Lipitor 20 mg by mouth at bedtime - metoprolol 12.5 mg by mouth twice a day - primidone 50 mg by mouth twice a day - venlafaxine 75 mg by mouth twice a day - Sinemet 1.5 tablets by mouth four times a day - milk of magnesia as needed - Dulcolax as needed - Tylenol as needed - Percocet one tablet by mouth every four hours as needed for pain - folic acid 1 mg daily - Micro-K 10 mEq by mouth daily - Protonix 20 mg by mouth daily
[2017-01-22 06:00] VITALS: BP 141/71
[2017-01-22 06:37] LABS: MEAN CORPUSCULAR HEMOGLOBIN 29.6 pg (27.0-33.0); MEAN CORPUSCULAR HGB CONC 33.1 g/dl (32.0-36.5); MEAN CORPUSCULAR VOLUME 89.3 fl (80.0-96.0); PLATELET COUNT, AUTOMATED 178 10^3/uL (150-450); RED CELL DISTRIBUTION WIDTH 13.3 % (11.5-14.5); WHITE BLOOD COUNT 8.1 10^3/uL (4.0-10.0)
[2017-01-22 07:22] LABS: ANION GAP 10 MEQ/L (8-16); BLOOD UREA NITROGEN 25 MG/DL (7-18); CALCIUM LEVEL 8.4 MG/DL (8.8-10.2); CARBON DIOXIDE LEVEL 24 MEQ/L (21-32); CHLORIDE LEVEL 102 MEQ/L (98-107); CREATININE FOR GFR 1.07 MG/DL (0.70-1.30); GLOMERULAR FILTRATION RATE > 60.0 (>42); GLUCOSE, FASTING 117 MG/DL (83-110); MAGNESIUM LEVEL 1.7 MG/DL (1.8-2.4); POTASSIUM SERUM 4.3 MEQ/L (3.5-5.1); SODIUM LEVEL 136 MEQ/L (136-145)
[2017-01-22] MEDS ORDERED: CALCIUM CARBONATE 500 MG CHEW U/D PO ONE (08:00)
[2017-01-22] MEDS ORDERED: MAGNESIUM GLUCONATE 500 MG TAB PO ONE (08:00)
[2017-01-22 08:08] LABS: ALBUMIN 2.9 GM/DL (3.2-5.2)
[2017-01-22] MEDS: PANTOPRAZOLE 20 MG TAB PO SCH (08:09)
[2017-01-22] MEDS: FOLIC ACID 1 MG TAB PO SCH (08:10)
[2017-01-22] MEDS: METOPROLOL TART 12.5 MG PER 1/2 TAB PO SCH ×2 (08:10→20:44)
[2017-01-22] MEDS: SINEMET 25-100 MG TAB PO SCH ×4 (08:10→20:41)
[2017-01-22] MEDS: SENOKOT S TAB PO SCH ×2 (08:10→20:45)
[2017-01-22] MEDS: amLODIPine 10 MG TAB PO SCH (08:11)
[2017-01-22] MEDS: VENLAFAXINE **XR** 75MG CAPSULE PO SCH ×2 (08:11→20:44)
[2017-01-22] MEDS: PRIMIDONE 50 MG TAB PO SCH ×2 (08:11→20:44)
[2017-01-22] MEDS: POTASSIUM CHLORIDE 10 MEQ SR TABLET PO SCH (08:11)
[2017-01-22] MEDS: HumaLOG INSULIN (NovoLOG) PER UNIT SC SCH ×4 (08:12→20:27)
[2017-01-22 14:00] VITALS: BP 158/71
--- NOTE | 2017-01-22 14:18 | IPNPDOC ---
Subjective Date Seen The patient was seen on 01/22/17. Subjective Chief Complaint/HPI The patient is a 76-year-old male admitted with a reason for visit of Luis Alfredo Hematuria,Uti. Examined resting in chair. Pt has no complaints and denies blood in urine. Per nursing, pt had clear yellow urine once catheter was removed, and no blood or clots. Pt had 1 episode of vomiting this morning, and no overnight events. Constitutional: Denies: Chills, Fever ENT: Denies: Head Aches, Dysphagia Pulmonary: Denies: Dyspnea, Cough, Pleuritic Chest Pain Cardiovascular: Denies: Chest Pain, Palpitations, Edema, Lt Headedness Gastrointestinal: Reports: Vomiting, Denies: Nausea, Abdominal Pain, Melena, Hematochezia Genitourinary: Denies: Dysuria, Hematuria Musculoskeletal: Denies: Spasms Neurological: Denies: Weakness Objective Physical Examination General Exam: Positive: Alert, Cooperative, No Acute Distress Eye Exam: Positive: EOMI ENT Exam: Positive: Atraumatic Neck Exam: Positive: Supple, Negative: JVD, Lymphadenopathy Chest Exam: Positive: Clear to auscultation, Normal air movement, Negative: Wheezing Heart Exam: Positive: Irregular Rhythm, Normal S1, Normal S2, Murmurs (systolic ), Negative: Rate Normal (irregularly irregular) Abdomen Exam: Positive: Soft, Negative: Tenderness Extremity Exam: Negative: Cyanosis, Edema, Tenderness Skin Exam: Positive: Nl turgor and temperature Psych Exam: Positive: Mood NL, Oriented x 3 Assessment /Plan Assessment Hemorrhagic Cystitis 2/2 Chronic Chung for urinary retention clinically improving and stable. No hematuria overnight. Transferred from PCU to general medical floor Urology following. Per Urology, CBI was stopped yesterday and pt has not had hematuria since then. Continue with intermittent catheterization prn ASA/Plavix on hold due to bleed serial H&H stable with Hg~10, Hct ~30. Pt asymptomatic. Monitor. Consented for transfusion if needed UTI from ESBL chronic Chung Normal WBC, afebrile ID & Urology consulted Per ID, Ertapenem discontinued and started on Fosfomycin every other day, for total of 3 doses. urine & blood cultures negative at 72hrs HTN Controlled. Hydralazine IV discontinued. Continue Norvasc. Hypomagnesemia repleted Hypocalcemia repleted DM ISS, not on Insulin at home Parkinson's Ds continue home meds AFib hx not on anticoagulation at home due to fall risk continue B-lincoln CAD ASA/Plavix on hold due to bleed on b-lincoln, statin DVT ppx JOSE ALFREDO/SCD, hold Lovenox/Heparin due to bleed Plan/VTE VTE Prophylaxis Ordered?: Yes VS, I&O, 24H, Fishbone Vital Signs/I&O Vital Signs Date Time Temp Pulse Resp B/P (MAP) Pulse Ox O2 Delivery O2 Flow Rate FiO2 01/22/17 08:11 76 141/71 01/22/17 06:00 98.7 17 96 Room Air I&O- Last 24 Hours up to 6 AM 01/23/17 06:00 Intake Total 360 ml Balance 360 ml Laboratory Data 24H LABS Laboratory Tests 2 01/21/17 12:14: Bedside Glucose (Misc Panel) 125H 01/21/17 17:28: Bedside Glucose (Misc Panel) 120H 01/21/17 21:07: Bedside Glucose (Misc Panel) 116H 01/22/17 06:28: Nucleated Red Blood Cells % (auto) 0.0, Anion Gap 10, Glomerular Filtration Rate > 60.0, Blood Urea Nitrogen 25H, Creatinine 1.07, Sodium Level 136, Potassium Level 4.3, Chloride Level 102, Carbon Dioxide Level 24, Calcium Level 8.4L, Magnesium Level 1.7L, Albumin 2.9L CBC/BMP Laboratory Tests 01/22/17 06:28 Red Blood Count 3.55 L, Mean Corpuscular Volume 89.3, Mean Corpuscular Hemoglobin 29.6, Mean Corpuscular Hemoglobin Concent 33.1, Red Cell Distribution Width 13.3, Calcium Level 8.4 L Microbiology Microbiology 01/18/17 Blood Culture - Preliminary, Resulted No Growth after 72 hours. All specime... 01/18/17 Blood Culture - Preliminary, Resulted No Growth after 72 hours. All specime... 01/18/17 Urine Culture - Final, Complete GME ATTESTATION GME ATTESTATION My preceptor for this patient encounter was physically present in the building during the encounter and was fully available. As needed, all aspects of the patient interview, examination, medical decision making process, and medical care plan development were reviewed and approved by the preceptor. Preceptor is aware and concurs with the plan as stated in the body of this note and will attest to such by his/her cosignature. ELHAM BERNARDO DO Jan 22, 2017 10:44
[2017-01-22] MEDS: ATORVASTATIN 20 MG TAB PO SCH (20:44)
[2017-01-23 06:00] VITALS: BP 128/82
[2017-01-23 06:33] LABS: MEAN CORPUSCULAR HGB CONC 32.4 g/dl (32.0-36.5); MEAN CORPUSCULAR VOLUME 89.6 fl (80.0-96.0); PLATELET COUNT, AUTOMATED 192 10^3/uL (150-450); RED CELL DISTRIBUTION WIDTH 13.2 % (11.5-14.5); WHITE BLOOD COUNT 7.8 10^3/uL (4.0-10.0)
[2017-01-23 06:47] LABS: ANION GAP 4 MEQ/L (8-16); BLOOD UREA NITROGEN 28 MG/DL (7-18); CALCIUM LEVEL 8.4 MG/DL (8.8-10.2); CARBON DIOXIDE LEVEL 28 MEQ/L (21-32); CHLORIDE LEVEL 103 MEQ/L (98-107); CREATININE FOR GFR 1.13 MG/DL (0.70-1.30); GLOMERULAR FILTRATION RATE > 60.0 (>42); GLUCOSE, FASTING 117 MG/DL (83-110); MAGNESIUM LEVEL 1.9 MG/DL (1.8-2.4); POTASSIUM SERUM 4.1 MEQ/L (3.5-5.1); SODIUM LEVEL 135 MEQ/L (136-145)
--- NOTE | 2017-01-23 08:21 | REP ---
Clinical: Rhonchi. Comparison: 11/14/2016. Findings: Stable cardiomegaly and diffuse chronic interstitial changes are appreciated. Superimposed pulmonary vascular congestion and interstitial edema including bibasilar atelectasis is suggested. Small layering left effusion cannot be excluded. No pneumothorax. Skeletal structures intact and stable. Impression: Chronic stable interstitial changes and cardiomegaly. Superimposed interstitial edema and basilar atelectasis as well as possible small left effusion cannot be excluded. Signed by Gavino Hancock MD 01/23/2017 08:12 A
[2017-01-23] MEDS: POTASSIUM CHLORIDE 10 MEQ SR TABLET PO SCH (09:00)
[2017-01-23] MEDS: HumaLOG INSULIN (NovoLOG) PER UNIT SC SCH ×4 (09:01→19:57)
[2017-01-23] MEDS: METOPROLOL TART 12.5 MG PER 1/2 TAB PO SCH ×2 (09:02→21:07)
[2017-01-23] MEDS: VENLAFAXINE **XR** 75MG CAPSULE PO SCH ×2 (09:02→21:07)
[2017-01-23] MEDS: SENOKOT S TAB PO SCH ×2 (09:03→21:06)
[2017-01-23] MEDS: FOLIC ACID 1 MG TAB PO SCH (09:03)
[2017-01-23] MEDS: SINEMET 25-100 MG TAB PO SCH ×4 (09:03→21:06)
[2017-01-23] MEDS: PRIMIDONE 50 MG TAB PO SCH ×2 (09:03→21:07)
[2017-01-23] MEDS: PANTOPRAZOLE 20 MG TAB PO SCH (09:03)
[2017-01-23] MEDS: amLODIPine 10 MG TAB PO SCH (09:03)
--- NOTE | 2017-01-23 10:43 | IPNPDOC ---
Subjective Date Seen The patient was seen on 01/23/17. Subjective Chief Complaint/HPI The patient is a 76-year-old male admitted with a reason for visit of Luis Alfredo Hematuria,Uti. Resting in bed and has no acute complaints. Per overnight notes, pt still has clots in urine. Per overnight team, pt had rhonchi in lungs. CXR had no acute concerns. Lungs clear on exam in am. Constitutional: Denies: Chills, Fever Eyes: Denies: Pain, Vision change ENT: Denies: Head Aches, Dysphagia Pulmonary: Denies: Dyspnea, Cough Cardiovascular: Denies: Chest Pain, Edema, Lt Headedness Gastrointestinal: Denies: Nausea, Vomiting, Abdominal Pain, Diarrhea, Constipation, Melena, Hematochezia Genitourinary: Denies: Dysuria Hematologic: Denies: Bruising Objective Physical Examination General Exam: Positive: Alert, Cooperative, No Acute Distress Eye Exam: Positive: EOMI ENT Exam: Positive: Atraumatic Neck Exam: Positive: Supple, Negative: JVD, Lymphadenopathy Chest Exam: Positive: Clear to auscultation, Normal air movement, Negative: Wheezing Heart Exam: Positive: Irregular Rhythm, Normal S1, Normal S2, Murmurs (systolic ), Negative: Rate Normal (irregularly irregular) Abdomen Exam: Positive: Soft, Negative: Tenderness Extremity Exam: Negative: Cyanosis, Edema, Tenderness Skin Exam: Positive: Nl turgor and temperature Psych Exam: Positive: Mood NL, Oriented x 3 Assessment /Plan Assessment Hemorrhagic Cystitis 2/2 Chronic Chung for urinary retention per night reports, pt had clots in urine Urology following. Pt is medically stable, and will discharge once cleared by Urology CBI was stopped 01/21 and has since been intermittently catheterized ASA/Plavix on hold due to bleed serial H&H continue to be stable with Hg~10, Hct ~30. Pt asymptomatic. Monitor. Consented for transfusion if needed UTI from ESBL chronic Chung Normal WBC, afebrile ID & Urology consulted Per ID, continue Fosfomycin every other day, for total of 3 doses. First dose given on 01/21 urine & blood cultures negative HTN Controlled. Continue Norvasc. DM ISS, not on Insulin at home Parkinson's Ds continue home meds AFib hx not on anticoagulation at home due to fall risk continue B-lincoln CAD ASA/Plavix on hold due to bleed on b-lincoln, statin DVT ppx JOSE ALFREDO/SCD, hold Lovenox/Heparin due to bleed Plan/VTE VTE Prophylaxis Ordered?: Yes VS, I&O, 24H, Fishbone Vital Signs/I&O Vital Signs Date Time Temp Pulse Resp B/P (MAP) Pulse Ox O2 Delivery O2 Flow Rate FiO2 01/23/17 09:03 65 128/82 01/23/17 06:00 97.6 19 97 Room Air I&O- Last 24 Hours up to 6 AM 01/24/17 06:00 Intake Total 0 ml Output Total 0 ml Balance 0 ml Laboratory Data 24H LABS Laboratory Tests 2 01/22/17 11:56: Bedside Glucose (Misc Panel) 131H 01/22/17 16:23: Bedside Glucose (Misc Panel) 96 01/22/17 20:08: Bedside Glucose (Misc Panel) 162H 01/23/17 05:43: Nucleated Red Blood Cells % (auto) 0.0, Anion Gap 4L, Glomerular Filtration Rate > 60.0, Blood Urea Nitrogen 28H, Creatinine 1.13, Sodium Level 135L, Potassium Level 4.1, Chloride Level 103, Carbon Dioxide Level 28, Calcium Level 8.4L, Magnesium Level 1.9 CBC/BMP Laboratory Tests 01/23/17 05:43 Red Blood Count 3.55 L, Mean Corpuscular Volume 89.6, Mean Corpuscular Hemoglobin 29.0, Mean Corpuscular Hemoglobin Concent 32.4, Red Cell Distribution Width 13.2, Calcium Level 8.4 L Microbiology Microbiology 01/18/17 Blood Culture - Preliminary, Resulted No Growth after 72 hours. All specime... 01/18/17 Blood Culture - Preliminary, Resulted No Growth after 72 hours. All specime... 01/18/17 Urine Culture - Final, Complete GME ATTESTATION GME ATTESTATION My preceptor for this patient encounter was physically present in the building during the encounter and was fully available. As needed, all aspects of the patient interview, examination, medical decision making process, and medical care plan development were reviewed and approved by the preceptor. Preceptor is aware and concurs with the plan as stated in the body of this note and will attest to such by his/her cosignature. ELHAM BERNARDO DO Jan 23, 2017 10:43
[2017-01-23] MEDS: FOSFOMYCIN TROMETHAMINE 3 GM POWDER PACKET (MONUROL) PO SCH (12:39)
[2017-01-23 14:00] VITALS: BP 151/67
--- NOTE | 2017-01-23 14:22 | IPN ---
DATE: 01/23/2017 We took Mr. Aguilar's catheter out yesterday and he began clean intermittent catheterization. This morning at the end the catheterization there were some blood clots but it sounds like to catheterized specimens have otherwise been negative. At this point, he is comfortable and denies any lower abdominal pain or pressure or other issues. He is afebrile. His blood pressure is 128/82. He has no CVA tenderness. His abdomen is soft, nontender. LABORATORY DATA His hemoglobin and hematocrit are stable now 10.3 over 31.8 and his creatinine is stable of 1.13. IMPRESSION: 1. Gross hematuria in a patient who had an indwelling Chung catheter after a urinary tract infection (UTI), but who had previously been on CIC for a history of urinary retention over the past 2 years. 2. Parkinson's disease. 3. Atrial fibrillation in a patient who was on Plavix, which is now on hold. 4. Type 2 diabetes. 5. Dementia. 6. History of recurrent urinary tract infections. PLAN: Continue intermittent catheterization for now but if he begins bleeding again a three-way Chung catheter and continuous bladder irrigation may need to be restarted and he may require a cystoscopy at that time.
--- NOTE | 2017-01-23 14:23 | IPN ---
DATE: 01/22/2017 The patient was on CBI and it was turned off and his urine has remained completely clear. I have recommended that the Chung catheter be removed and he start clean intermittent catheterizations three times a day and as needed. He is afebrile. His vital signs are stable. He has no CVA tenderness. His abdomen is soft and nontender. LABORATORY DATA His hemoglobin and hematocrit are 10.5 and 31.7. His creatinine is 1.07. His urine and blood cultures have come back no growth. IMPRESSION: 1. Gross hematuria in a patient who has had an indwelling Chung catheter and was on Plavix, but that has now cleared with continuous bladder irrigation. 2. Previous history of recurrent urinary tract infections. He will start methenamine as an outpatient. 3. Multiple medical problems, including atrial fibrillation in a patient who was on Plavix, Parkinson's disease, dementia, diabetes, and a history of urinary retention on CIC for 2 years. PLAN: Discontinue the Chung catheter and start clean intermittent catheterizations three times a day and as needed. As an outpatient, the patient will need methenamine. The patient can be discharged from a standpoint if he is tolerating clean intermittent catheterization without any further bleeding.
[2017-01-23] MEDS: ATORVASTATIN 20 MG TAB PO SCH (21:06)
[2017-01-23 22:00] VITALS: BP 158/74
[2017-01-24 06:00] VITALS: BP 130/74
[2017-01-24 06:22] LABS: MEAN CORPUSCULAR HEMOGLOBIN 29.4 pg (27.0-33.0); MEAN CORPUSCULAR HGB CONC 33.1 g/dl (32.0-36.5); MEAN CORPUSCULAR VOLUME 88.9 fl (80.0-96.0); PLATELET COUNT, AUTOMATED 195 10^3/uL (150-450); RED CELL DISTRIBUTION WIDTH 13.2 % (11.5-14.5); WHITE BLOOD COUNT 7.5 10^3/uL (4.0-10.0)
[2017-01-24 06:42] LABS: ANION GAP 9 MEQ/L (8-16); BLOOD UREA NITROGEN 27 MG/DL (7-18); CALCIUM LEVEL 8.2 MG/DL (8.8-10.2); CARBON DIOXIDE LEVEL 26 MEQ/L (21-32); CHLORIDE LEVEL 102 MEQ/L (98-107); CREATININE FOR GFR 1.15 MG/DL (0.70-1.30); GLOMERULAR FILTRATION RATE > 60.0 (>42); GLUCOSE, FASTING 117 MG/DL (83-110); POTASSIUM SERUM 4.1 MEQ/L (3.5-5.1); SODIUM LEVEL 137 MEQ/L (136-145)
[2017-01-24] MEDS: SINEMET 25-100 MG TAB PO SCH (08:50)
[2017-01-24] MEDS: VENLAFAXINE **XR** 75MG CAPSULE PO SCH (08:51)
[2017-01-24] MEDS: PRIMIDONE 50 MG TAB PO SCH (08:51)
[2017-01-24] MEDS: SENOKOT S TAB PO SCH (08:51)
[2017-01-24 08:53] VITALS: BP 164/72
[2017-01-24] MEDS: METOPROLOL TART 12.5 MG PER 1/2 TAB PO SCH (08:53)
[2017-01-24] MEDS: PANTOPRAZOLE 20 MG TAB PO SCH (08:53)
[2017-01-24] MEDS: amLODIPine 10 MG TAB PO SCH (08:53)
[2017-01-24] MEDS: FOLIC ACID 1 MG TAB PO SCH (08:55)
[2017-01-24] MEDS: POTASSIUM CHLORIDE 10 MEQ SR TABLET PO SCH (08:55)
[2017-01-24] MEDS: HumaLOG INSULIN (NovoLOG) PER UNIT SC SCH (08:56)
[2017-01-24] MEDS ORDERED: Fosfomycin Tromethamine PO (10:25)
--- NOTE | 2017-01-25 00:01 | DS.PDOC ---
Discharge Summary General Date of Admission Jan 18, 2017 at 11:28 Date of Discharge 01/24/17 Primary Care Physician: Jr Combs Collins Attending Physician: SMITH ALEGRE MD Specialist/Consultants Involve Dr. Natalia Bhatia-Infectious Disease Dr. Saida Wu-Urology Discharge Summary PROCEDURES PERFORMED DURING STAY: [None]. ADMITTING DIAGNOSES: 1. Hemorrhagic cystitis 2. HTN Urgency DISCHARGE DIAGNOSES: 1. Hemorrhagic cystitis 2. HTN Urgency 3. AAA 4. NIDDM2 5. Parkinson's Ds 6. Dementia 7. Urinary retention 8. CAD 9. Chronic A.Fib, not anticoag COMPLICATIONS/CHIEF COMPLAINT: Kaia Hematuria,Uti. HISTORY OF PRESENT ILLNESS: Mr. 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 Pt has hx of UTI with E.Coli ESBL positive. Pt denied all other symptoms, including chest pain, shortness of breath, fevers, chills, abdominal pain, n/v, flank pain, diarrhea. In the ED, he had continuous bladder irrigation which returned a few clots, urine turned pink despite continuous efforts, and then returned to kaia hematuria once CBI was stopped. Labs on admission were non-concerning. Vitals were WNL, except for HTN urgency. HOSPITAL COURSE: ASA & Plavix was stopped. Urine & blood cultures resulted negative. Urology was consulted and continuous bladder irrigation was restarted. Pt's blood pressure trended down without any intervention. Infectious Disease was consulted. Pt was started on Ertapenem & IV fluids, with frequent H&H monitoring which stayed stable, and pt was consented for transfusion, but pt did not require transfusion throughout hospital stay. Ertapenem was stopped and pt was started on Fosfomycin 3gm every other day, for total of 3 doses to complete tx for ESBL E.Coli. Hematuria progressively resolved, and CBI was discontinued, and pt was doing well with clean intermittent catheterization. Pt was deemed stable and cleared for discharge with outpatient f/u with Urology. DISCHARGE MEDICATIONS: Please see below. ALLERGIES: Please see below. PHYSICAL EXAMINATION ON DISCHARGE: VITAL SIGNS: Please see below. GENERAL: NAD, alert, interactive HEENT: normocephalic, atraumatic NECK: supple CARDIOVASCULAR EXAMINATION: irregularly rhythm, normal S1 S2, systolic murmur present RESPIRATORY EXAMINATION: CTAB, normal air mvmt ABDOMINAL EXAMINATION: soft, nontender, nondistended EXTREMITIES: no c/c/e SKIN: warm, pink NEUROLOGICAL EXAMINATION: sensation intact PSYCHIATRIC EXAMINATION: appropriate mood & affect LABORATORY DATA: Please see below. IMAGING: * 01/18/17 Abd/Pelvis CT: 1. Hyperattenuating fluid in the urinary bladder consistent with blood. Chung catheter. No urinary tract mass visible. 2. No hydronephrosis or urinary calculus. 3. Abdominal aortic aneurysm measuring 4.7 x 4.2 cm, previously 4.3 x 4.0 by my measurement. Slightly larger. Stable left common iliac artery aneurysm. 4. Cholelithiasis. 5. Left colonic diverticulosis. * 01/19/17 Renal US: There is blood or debris in the urinary bladder. A Chung catheter is present. * 01/23/17 CXR: Chronic stable interstitial changes and cardiomegaly. Superimposed interstitial edema and basilar atelectasis as well as possible small left effusion cannot be excluded. PROGNOSIS: good ACTIVITY: As tolerated DIET: consistent carbs DISPOSITION: [facility]. DISCHARGE INSTRUCTIONS: 1. F/u with PCP in 1 week 2. F/u with Urology within 2 weeks 3. Return to ED for new emergency DISCHARGE CONDITION: Stable TIME SPENT ON DISCHARGE: Greater than 40 minutes. Vital Signs/I&Os Vital Signs Date Time Temp Pulse Resp B/P (MAP) Pulse Ox O2 Delivery O2 Flow Rate FiO2 01/24/17 09:00 Room Air 01/24/17 08:53 74 164/72 01/24/17 06:00 98.2 16 95 I&O- Last 24 Hours up to 6 AM 01/25/17 06:00 Intake Total 120 ml Output Total 0 ml Balance 120 ml Laboratory Data Labs 24H Laboratory Tests 2 01/24/17 05:49: Nucleated Red Blood Cells % (auto) 0.0, Anion Gap 9, Glomerular Filtration Rate > 60.0, Blood Urea Nitrogen 27H, Creatinine 1.15, Sodium Level 137, Potassium Level 4.1, Chloride Level 102, Carbon Dioxide Level 26, Calcium Level 8.2L, Magnesium Level 2.0 CBC/BMP Laboratory Tests 01/24/17 05:49 Red Blood Count 3.50 L, Mean Corpuscular Volume 88.9, Mean Corpuscular Hemoglobin 29.4, Mean Corpuscular Hemoglobin Concent 33.1, Red Cell Distribution Width 13.2, Calcium Level 8.2 L Microbiology Microbiology 01/18/17 Blood Culture - Final, Complete NO GROWTH AFTER 5 DAYS 01/18/17 Blood Culture - Final, Complete NO GROWTH AFTER 5 DAYS 01/18/17 Urine Culture - Final, Complete Discharge Medications Scheduled (Methenamine Hippurate) 1 Gm Tab, 1 GM PO BID Amlodipine Besylate (Amlodipine Besylate) 10 Mg Tab, 10 MG PO DAILY, (Reported) Aspirin (Aspirin EC) 81 Mg Tab, 81 MG PO DAILY, (Reported) Atorvastatin Calcium (Lipitor) 20 Mg Tab, 20 MG PO QHS, (Reported) Carbidopa/Levodopa (Sinemet 25-100 mg) 1 Tab Tab, 1.5 TAB PO QID, (Reported) Folic Acid (Folic Acid) 1 Mg Tab, 1 MG PO DAILY, (Reported) Memantine Hydrochloride (Memantine HCl) 10 Mg Tab, 10 MG PO BID, (Reported) Metoprolol Tartrate (Metoprolol Tartrate) 25 Mg Tab, 12.5 MG PO BID, (Reported) Pantoprazole Sodium (Pantoprazole Sodium) 20 Mg Tab, 20 MG PO DAILY, (Reported) Potassium Chloride (K-Tab) 10 Meq Tab, 10 MEQ PO DAILY, (Reported) Primidone (Mysoline) 50 Mg Tab, 50 MG PO BID, (Reported) Venlafaxine HCl (Venlafaxine HCl ER) 75 Mg Capcr, 75 MG PO BID, (Reported) [Fosfomycin Tromethamine] 3 GM/PKT PACKET, 3 GM PO ONE TIME DOSE give 1 dose on 01/25/17 Scheduled PRN Acetaminophen (Acetaminophen) 325 Mg Tab, 650 MG PO Q4H PRN for PAIN, (Reported) Bisacodyl (Bisacodyl) 10 Mg Sup, 10 MG RI DAILY PRN for CONSTIPATION, (Reported) Milk Of Magnesia (Milk of Magnesia) 1,200 Mg/15 Ml Keiry, 30 ML PO DAILY PRN for CONSTIPATION, (Reported) Sodium Phosphate/Biphosphate (Enema 7-19 gm/118Ml) 1 Gold Gold, 1 GOLD RI DAILY PRN for CONSTIPATION, (Reported) Allergies Coded Allergies: No Known Allergies (Unverified , 03/01/16) GME ATTESTATION GME ATTESTATION My preceptor for this patient encounter was physically present in the building during the encounter and was fully available. As needed, all aspects of the patient interview, examination, medical decision making process, and medical care plan development were reviewed and approved by the preceptor. Preceptor is aware and concurs with the plan as stated in the body of this note and will attest to such by his/her cosignature. ELHAM BERNARDO DO Jan 25, 2017 00:00
== END 2017-01-24 12:20 | DRG 699 ==
LOC: M ED 07:02 → M ED INP 11:28 → M PCU 13:10 → M MSPAV 01-21 21:25
PROVIDERS: ADMIT Hospitalist; ATTEND Internal Medicine
DX: T83.518A Infection and inflammatory reaction due to other urinary catheter, initial encounter (principal); N17.9 Acute kidney failure, unspecified; N30.91 Cystitis, unspecified with hematuria; I16.0 Hypertensive urgency; I10 Essential (primary) hypertension; G20 Parkinson's disease; I48.2 Chronic atrial fibrillation; E11.9 Type 2 diabetes mellitus without complications; F03.90 Unspecified dementia, unspecified severity, without behavioral disturbance, psychotic disturbance, mood disturbance, and anxiety; Z87.440 Personal history of urinary (tract) infections; Z79.899 Other long term (current) drug therapy; Z79.02 Long term (current) use of antithrombotics/antiplatelets; Z87.891 Personal history of nicotine dependence; Z96.0 Presence of urogenital implants; Z79.82 Long term (current) use of aspirin; Y82.9 Unspecified medical devices associated with adverse incidents

== ENCOUNTER → 2017-01-29 | Outpatient (REF) ==
[~2017-01-29] MED LIST changes: +ACET1TAB17 PO; +BISA10SU4 PR; +CLOP75TA2 PO; +ENEMENE16 PR; +FOLI800C PO; +Fosfomycin Tromethamine PO; +LIPI20TA PO; +METH1TAB2 PO; +METO1TAB87 PO; +METO37.5 PO; +MILKSUS PO; +PANT20TA PO
[2017-01-29 10:38] LABS: MEAN CORPUSCULAR HEMOGLOBIN 28.8 pg (27.0-33.0); MEAN CORPUSCULAR HGB CONC 31.9 g/dl (32.0-36.5); PLATELET COUNT, AUTOMATED 297 10^3/uL (150-450); RED CELL DISTRIBUTION WIDTH 13.2 % (11.5-14.5); WHITE BLOOD COUNT 9.3 10^3/uL (4.0-10.0)
[2017-01-29 11:11] LABS: ANION GAP 11 MEQ/L (8-16); BLOOD UREA NITROGEN 30 MG/DL (7-18); CALCIUM LEVEL 8.8 MG/DL (8.8-10.2); CARBON DIOXIDE LEVEL 25 MEQ/L (21-32); CHLORIDE LEVEL 101 MEQ/L (98-107); CREATININE FOR GFR 1.17 MG/DL (0.70-1.30); GLOMERULAR FILTRATION RATE > 60.0 (>42); GLUCOSE, FASTING 115 MG/DL (83-110); POTASSIUM SERUM 4.2 MEQ/L (3.5-5.1); SODIUM LEVEL 137 MEQ/L (136-145)
== END ==
PROVIDERS: ATTEND Internal Medicine
DX: E11.9 Type 2 diabetes mellitus without complications (principal)

== ENCOUNTER → 2017-02-08 | Outpatient (REF) | payer MEDICARE, OTHER ==
[2017-02-08 18:02] LABS: ANION GAP 10 MEQ/L (8-16); BLOOD UREA NITROGEN 31 MG/DL (7-18); CALCIUM LEVEL 8.2 MG/DL (8.8-10.2); CARBON DIOXIDE LEVEL 23 MEQ/L (21-32); CHLORIDE LEVEL 100 MEQ/L (98-107); CREATININE FOR GFR 1.22 MG/DL (0.70-1.30); GLOMERULAR FILTRATION RATE > 60.0 (>42); GLUCOSE, FASTING 178 MG/DL (83-110); POTASSIUM SERUM 4.3 MEQ/L (3.5-5.1); SODIUM LEVEL 133 MEQ/L (136-145)
[2017-02-08 18:04] LABS: MEAN CORPUSCULAR HEMOGLOBIN 30.1 pg (27.0-33.0); MEAN CORPUSCULAR HGB CONC 32.9 g/dl (32.0-36.5); MEAN CORPUSCULAR VOLUME 91.4 fl (80.0-96.0); PLATELET COUNT, AUTOMATED 219 10^3/uL (150-450); RED CELL DISTRIBUTION WIDTH 13.4 % (11.5-14.5); WHITE BLOOD COUNT 8.2 10^3/uL (4.0-10.0)
== END ==
PROVIDERS: ATTEND Internal Medicine
DX: R53.1 Weakness (principal)

== ENCOUNTER → 2017-02-11 | Outpatient (REF) | payer MEDICARE, OTHER ==
[~2017-02-11] MED LIST changes: +IRON65TA PO; +MUCI600T37 PO
[2017-02-11 14:18] LABS: MEAN CORPUSCULAR HEMOGLOBIN 29.5 pg (27.0-33.0); MEAN CORPUSCULAR HGB CONC 32.9 g/dl (32.0-36.5); MEAN CORPUSCULAR VOLUME 89.7 fl (80.0-96.0); PLATELET COUNT, AUTOMATED 305 10^3/uL (150-450); RED CELL DISTRIBUTION WIDTH 13.1 % (11.5-14.5); WHITE BLOOD COUNT 8.8 10^3/uL (4.0-10.0)
[2017-02-11 14:47] LABS: PERCENT SATURATION 13.5 % (19.7-50.0)
== END ==
PROVIDERS: ATTEND Internal Medicine
DX: D64.9 Anemia, unspecified (principal)
CPT/HCPCS: 82728; 84466; 85027; G0463

== ENCOUNTER → 2017-02-19 | Outpatient (REF) ==
[2017-02-19 11:08] LABS: MEAN CORPUSCULAR HEMOGLOBIN 28.5 pg (27.0-33.0); MEAN CORPUSCULAR VOLUME 89.1 fl (80.0-96.0); PLATELET COUNT, AUTOMATED 356 10^3/uL (150-450); RED CELL DISTRIBUTION WIDTH 13.3 % (11.5-14.5)
== END ==
PROVIDERS: ATTEND Internal Medicine
DX: D64.9 Anemia, unspecified (principal)

== ENCOUNTER → 2017-02-25 | Outpatient (REF) | payer MEDICARE, OTHER ==
[2017-02-25 12:52] LABS: MEAN CORPUSCULAR HEMOGLOBIN 28.8 pg (27.0-33.0); MEAN CORPUSCULAR HGB CONC 32.8 g/dl (32.0-36.5); MEAN CORPUSCULAR VOLUME 87.8 fl (80.0-96.0); PLATELET COUNT, AUTOMATED 312 10^3/uL (150-450); RED CELL DISTRIBUTION WIDTH 13.2 % (11.5-14.5); WHITE BLOOD COUNT 9.8 10^3/uL (4.0-10.0)
== END ==
PROVIDERS: ATTEND Internal Medicine
DX: D50.9 Iron deficiency anemia, unspecified (principal)

== ENCOUNTER 2017-02-26 15:39 | Emergency (ER) | payer MEDICARE, OTHER ==
[~2017-02-26] VITALS: Ht 190.5 cm; Wt 89.1 kg
[~2017-02-26 15:39] MED LIST changes: -IRON65TA PO; -MUCI600T37 PO
[2017-02-26] MEDS ORDERED: MUCI600T37 PO (17:14)
[2017-02-26] MEDS ORDERED: METH1TAB2 PO (17:14)
[2017-02-26] MEDS ORDERED: IRON65TA PO (17:14)
[2017-02-26 18:35] VITALS: BP 167/72
== END 2017-02-26 18:54 | disposition home or self-care (01) ==
LOC: EDBD 15:39 → M ED 15:39
DX: R33.9 Retention of urine, unspecified (principal); R31.9 Hematuria, unspecified; I71.4 Abdominal aortic aneurysm, without rupture; I10 Essential (primary) hypertension; I48.91 Unspecified atrial fibrillation; E11.9 Type 2 diabetes mellitus without complications; G20 Parkinson's disease; F03.90 Unspecified dementia, unspecified severity, without behavioral disturbance, psychotic disturbance, mood disturbance, and anxiety; D50.9 Iron deficiency anemia, unspecified; Z79.01 Long term (current) use of anticoagulants; Z79.899 Other long term (current) drug therapy; Z79.82 Long term (current) use of aspirin; Z87.440 Personal history of urinary (tract) infections

== ENCOUNTER → 2017-02-26 | Outpatient (REF) | payer MEDICARE, OTHER ==
[2017-02-26 12:00] LABS: MEAN CORPUSCULAR HEMOGLOBIN 28.8 pg (27.0-33.0); MEAN CORPUSCULAR HGB CONC 32.8 g/dl (32.0-36.5); MEAN CORPUSCULAR VOLUME 87.9 fl (80.0-96.0); PLATELET COUNT, AUTOMATED 309 10^3/uL (150-450); RED CELL DISTRIBUTION WIDTH 13.2 % (11.5-14.5); WHITE BLOOD COUNT 11.3 10^3/uL (4.0-10.0)
[2017-02-26 12:33] LABS: CALCIUM LEVEL 8.1 MG/DL (8.8-10.2); CREATININE FOR GFR 1.42 MG/DL (0.70-1.30); GLOMERULAR FILTRATION RATE 51.3 (>42); POTASSIUM SERUM 4.4 MEQ/L (3.5-5.1)
== END ==
PROVIDERS: ATTEND Internal Medicine
DX: I10 Essential (primary) hypertension (principal)

== ENCOUNTER → 2017-02-27 | Outpatient (REF) | payer MEDICARE, OTHER ==
[~2017-02-27] MED LIST changes: +IRON65TA PO; +MUCI600T37 PO
[2017-02-27 14:18] LABS: MEAN CORPUSCULAR HEMOGLOBIN 28.7 pg (27.0-33.0); MEAN CORPUSCULAR HGB CONC 33.3 g/dl (32.0-36.5); MEAN CORPUSCULAR VOLUME 86.1 fl (80.0-96.0); PLATELET COUNT, AUTOMATED 268 10^3/uL (150-450); RED CELL DISTRIBUTION WIDTH 13.2 % (11.5-14.5); WHITE BLOOD COUNT 10.3 10^3/uL (4.0-10.0)
[2017-02-27 14:24] LABS: CALCIUM LEVEL 8.2 MG/DL (8.8-10.2); CREATININE FOR GFR 1.26 MG/DL (0.70-1.30); GLOMERULAR FILTRATION RATE 58.9 (>42); POTASSIUM SERUM 4.3 MEQ/L (3.5-5.1)
== END ==
PROVIDERS: ATTEND Internal Medicine
DX: I10 Essential (primary) hypertension (principal)

== ENCOUNTER → 2017-03-01 | Outpatient (REF) | payer MEDICARE, OTHER ==
[2017-03-01 17:23] LABS: MEAN CORPUSCULAR HEMOGLOBIN 28.1 pg (27.0-33.0); MEAN CORPUSCULAR HGB CONC 32.7 g/dl (32.0-36.5); MEAN CORPUSCULAR VOLUME 86.1 fl (80.0-96.0); PLATELET COUNT, AUTOMATED 292 10^3/uL (150-450); RED CELL DISTRIBUTION WIDTH 13.2 % (11.5-14.5); WHITE BLOOD COUNT 9.7 10^3/uL (4.0-10.0)
[2017-03-01 17:28] LABS: CALCIUM LEVEL 8.2 MG/DL (8.8-10.2); CREATININE FOR GFR 1.25 MG/DL (0.70-1.30); GLOMERULAR FILTRATION RATE 59.5 (>42); POTASSIUM SERUM 4.6 MEQ/L (3.5-5.1)
== END ==
PROVIDERS: ATTEND Internal Medicine
DX: I50.9 Heart failure, unspecified (principal)

== ENCOUNTER → 2017-03-06 | Outpatient (REF) | payer MEDICARE, OTHER ==
[2017-03-06 09:29] LABS: MEAN CORPUSCULAR HGB CONC 32.6 g/dl (32.0-36.5); MEAN CORPUSCULAR VOLUME 86.1 fl (80.0-96.0); PLATELET COUNT, AUTOMATED 351 10^3/uL (150-450); RED CELL DISTRIBUTION WIDTH 13.1 % (11.5-14.5); WHITE BLOOD COUNT 7.6 10^3/uL (4.0-10.0)
[2017-03-06 09:52] LABS: ANION GAP 9 MEQ/L (8-16); BLOOD UREA NITROGEN 27 MG/DL (7-18); CALCIUM LEVEL 8.7 MG/DL (8.8-10.2); CARBON DIOXIDE LEVEL 27 MEQ/L (21-32); CHLORIDE LEVEL 97 MEQ/L (98-107); CREATININE FOR GFR 1.18 MG/DL (0.70-1.30); GLOMERULAR FILTRATION RATE > 60.0 (>42); GLUCOSE, FASTING 197 MG/DL (83-110); POTASSIUM SERUM 4.4 MEQ/L (3.5-5.1); SODIUM LEVEL 133 MEQ/L (136-145)
== END ==
DX: D64.9 Anemia, unspecified (principal)
CPT/HCPCS: 80048

== ENCOUNTER → 2017-04-03 | Outpatient (REF) | payer MEDICARE, OTHER | LOC: M LAB REF 04-04 15:45 | DX: C44.229 Squamous cell carcinoma of skin of left ear and external auricular canal (principal) | CPT/HCPCS: 88305 ==

== ENCOUNTER → 2017-05-07 | Outpatient (REF) | payer MEDICARE, OTHER ==
[2017-05-07 10:35] LABS: HEMATOCRIT 31.9 % (42.0-52.0); HEMOGLOBIN 10.4 g/dl (14.0-18.0); MEAN CORPUSCULAR HGB CONC 32.6 g/dl (32.0-36.5); MEAN CORPUSCULAR VOLUME 82.9 fl (80.0-96.0); PLATELET COUNT, AUTOMATED 295 10^3/uL (150-450); RED BLOOD COUNT 3.85 10^6/uL (4.30-6.10); RED CELL DISTRIBUTION WIDTH 15.4 % (11.5-14.5); WHITE BLOOD COUNT 9.4 10^3/uL (4.0-10.0)
[2017-05-07 11:08] LABS: ANION GAP 9 MEQ/L (8-16); BLOOD UREA NITROGEN 32 MG/DL (7-18); CALCIUM LEVEL 8.5 MG/DL (8.8-10.2); CARBON DIOXIDE LEVEL 26 MEQ/L (21-32); CHLORIDE LEVEL 100 MEQ/L (98-107); CREATININE FOR GFR 1.08 MG/DL (0.70-1.30); GLOMERULAR FILTRATION RATE > 60.0 (>42); GLUCOSE, FASTING 166 MG/DL (70-100); POTASSIUM SERUM 4.2 MEQ/L (3.5-5.1); SODIUM LEVEL 135 MEQ/L (136-145)
[2017-05-10 00:07] LABS: PHENOBARBITAL (PRIMIDONE) 3 ug/mL (15-40); PRIMIDONE, SERUM 3.8 ug/mL (5.0-12.0)
== END ==
DX: R53.83 Other fatigue (principal)
CPT/HCPCS: 80188

== ENCOUNTER 2017-05-08 14:04 | Inpatient (IN) | payer MEDICARE, OTHER ==
[2017-05-08 15:00] LABS: BASO % 0.3 % (0.0-1.0); EOS # 0.2 10^3/uL (0.0-0.50); EOS % 2.3 % (0.0-3.0); HEMOGLOBIN 10.6 g/dl (14.0-18.0); IMMATURE GRANULOCYTE % 0.6 % (0-3.0); LYMPH # 0.7 10^3/uL (1.5-4.5); LYMPH % 7.4 % (24.0-44.0); MEAN CORPUSCULAR HEMOGLOBIN 26.5 pg (27.0-33.0); MEAN CORPUSCULAR HGB CONC 32.1 g/dl (32.0-36.5); MEAN CORPUSCULAR VOLUME 82.5 fl (80.0-96.0); MONO # 0.8 10^3/uL (0.0-0.8); MONO % 8.5 % (0.0-5.0); NEUTROPHILS # 7.5 10^3/uL (1.8-7.7); NEUTROPHILS % 80.9 % (36.0-66.0); PLATELET COUNT, AUTOMATED 298 10^3/uL (150-450); RED CELL DISTRIBUTION WIDTH 15.5 % (11.5-14.5); WHITE BLOOD COUNT 9.3 10^3/uL (4.0-10.0)
[2017-05-08 15:03] LABS: VENOUS BASE EXCESS -4.9 (-2.0-2.0); VENOUS HCO3 18.7 MEQ/L (23.0-27.0); VENOUS O2 SATURATION 59.9 % (60.0-80.0); VENOUS PARTIAL PRESSURE CO2 30.3 mmHg (38.0-50.0); VENOUS PARTIAL PRESSURE O2 35.6 mmHg (30.0-50.0); VENOUS PH 7.409 UNITS (7.330-7.430); VENOUS STANDARD HCO3 19.7 MEQ/L; VENOUS TOTAL CO2 19.7 MEQ/L (24.0-28.0)
[2017-05-08 15:04] LABS: BEDSIDE GLUCOSE 250 MG/DL (83-110)
[2017-05-08] MEDS: NS 1,000 ML IV (15:05)
[2017-05-08 15:22] LABS: OSMOLALITY SERUM 298 MOSM/KG (280-301)
[2017-05-08 15:25] LABS: AMMONIA 18 uMOL/L (<32)
[2017-05-08 15:27] LABS: ALBUMIN 2.6 GM/DL (3.2-5.2); ALBUMIN/GLOBULIN RATIO 0.39 (1.00-1.93); ALKALINE PHOSPHATASE 193 U/L (45-117); ALT/SGPT 11 U/L (12-78); ANION GAP 7 MEQ/L (8-16); AST/SGOT 19 U/L (7-37); BILIRUBIN,DIRECT 0.2 MG/DL (0.0-0.2); BILIRUBIN,TOTAL 0.5 MG/DL (0.2-1.0); BLOOD UREA NITROGEN 31 MG/DL (7-18); CALCIUM LEVEL 8.6 MG/DL (8.8-10.2); CARBON DIOXIDE LEVEL 26 MEQ/L (21-32); CHLORIDE LEVEL 99 MEQ/L (98-107); CPK CREATINE PHOSPHOKINASE 57 U/L (39-308); CREATININE FOR GFR 1.27 MG/DL (0.70-1.30); GLOMERULAR FILTRATION RATE 58.4 (>42); GLUCOSE, FASTING 222 MG/DL (70-100); POTASSIUM SERUM 4.2 MEQ/L (3.5-5.1); SODIUM LEVEL 132 MEQ/L (136-145); TOTAL PROTEIN 9.3 GM/DL (6.4-8.2); TROPONIN I < 0.02 NG/ML (< 0.10)
[2017-05-08 16:14] LABS: THYROID STIMULATING HORMONE 0.585 uIU/ML (0.358-3.740)
[2017-05-08 16:36] LABS: MB/CK RELATIVE INDEX 1.75 (< OR =4)
[2017-05-08 17:28] LABS: APPEARANCE, URINE TURBID (CLEAR); BACTERIA, URINE AUTO 1+ (NEGATIVE); BILIRUBIN, URINE AUTO NEGATIVE (NEGATIVE); BLOOD, URINE BLOOD 3+ (NEGATIVE); COLOR, URINE YELLOW (YELLOW); GLUCOSE, URINE (UA) AUTO 1+ mg/dL (NEGATIVE); KETONE, URINE AUTO TRACE mg/dL (NEGATIVE); LEUKOCYTE ESTERASE, URINE AUTO 2+ (NEGATIVE); MUCUS, URINE MODERATE (NEGATIVE); NITRITE, URINE AUTO POSITIVE (NEGATIVE); PROTEIN, URINE AUTO 2+ mg/dL (NEGATIVE); RBC, URINE AUTO TNTC /HPF (0-3); SPECIFIC GRAVITY URINE AUTO 1.018 (1.002-1.035); SQUAMOUS EPITHELIAL CELL UR AU 0 /HPF (0-6); WBC, URINE AUTO TNTC /HPF (0-3)
[2017-05-08] MEDS: CEFTRIAXONE SOD 2 GM in APPROPRIATE DILUENT 1 EA IV (18:23)
[2017-05-08] MEDS ORDERED: BISACODYL 10 MG SUPP PR (19:00)
[2017-05-08] MEDS ORDERED: FLEET ENEMA PR (19:00)
[2017-05-08] MEDS ORDERED: ONDANSETRON 4MG/2ML VIAL (J2405) IV (19:00)
[2017-05-08] MEDS ORDERED: MOM 30ML SUSPENSION UDC PO (19:00)
[2017-05-08 19:32] LABS: LACTIC ACID SEPSIS PROTOCOL 1.6 MMOL/L (0.4-2.0)
[2017-05-08] MEDS ORDERED: GLUCOSE 4 GM CHEW TABLET PO (20:00)
[2017-05-08] MEDS ORDERED: GLUCAGON FOR INJ 1 MG VIAL (J1610) SC (20:00)
[2017-05-08] MEDS ORDERED: DEXTROSE 50% 50 ML SYRINGE IV (20:00)
[2017-05-08 22:11] LABS: BEDSIDE GLUCOSE 174 MG/DL (83-110)
[2017-05-08] MEDS: HumaLOG INSULIN (NovoLOG) PER UNIT SC (22:13)
[2017-05-08] MEDS: DOCUSATE SODIUM 100 MG CAP PO (22:58)
[2017-05-08] MEDS: VENLAFAXINE **XR** 75MG CAPSULE PO (22:58)
[2017-05-08] MEDS: ATORVASTATIN 20 MG TAB PO (22:58)
[2017-05-08] MEDS: FERROUS SULFATE 325MG TAB PO (22:58)
[2017-05-08] MEDS: PRIMIDONE 50 MG TAB PO (22:59)
[2017-05-08] MEDS: MEMANTINE 5MG TABLET (NAMENDA) PO (22:59)
[2017-05-08] MEDS: METOPROLOL TART 12.5 MG PER 1/2 TAB PO (22:59)
[2017-05-08] MEDS: SINEMET 25-100 MG TAB PO (22:59)
[2017-05-08] MEDS: HEPARIN SOD (PORCINE) 5000 UNITS/ML VIAL SC (22:59)
[2017-05-08] MEDS: ACETAMINOPHEN TAB 650MG DOSE (2X325MG) PO (23:02)
[2017-05-09] MEDS: HEPARIN SOD (PORCINE) 5000 UNITS/ML VIAL SC ×3 (06:06→20:11)
[2017-05-09] MEDS: ACETAMINOPHEN TAB 650MG DOSE (2X325MG) PO (06:15)
[2017-05-09 06:46] LABS: BEDSIDE GLUCOSE 139 MG/DL (83-110)
[2017-05-09 06:55] LABS: HEMATOCRIT 30.8 % (42.0-52.0); HEMOGLOBIN 9.9 g/dl (14.0-18.0); MEAN CORPUSCULAR HEMOGLOBIN 26.5 pg (27.0-33.0); MEAN CORPUSCULAR HGB CONC 32.1 g/dl (32.0-36.5); MEAN CORPUSCULAR VOLUME 82.4 fl (80.0-96.0); PLATELET COUNT, AUTOMATED 266 10^3/uL (150-450); RED BLOOD COUNT 3.74 10^6/uL (4.30-6.10); RED CELL DISTRIBUTION WIDTH 15.2 % (11.5-14.5)
[2017-05-09 07:10] LABS: ANION GAP 7 MEQ/L (8-16); BLOOD UREA NITROGEN 26 MG/DL (7-18); CALCIUM LEVEL 8.7 MG/DL (8.8-10.2); CARBON DIOXIDE LEVEL 27 MEQ/L (21-32); CHLORIDE LEVEL 101 MEQ/L (98-107); CREATININE FOR GFR 1.01 MG/DL (0.70-1.30); GLOMERULAR FILTRATION RATE > 60.0 (>42); GLUCOSE, FASTING 136 MG/DL (70-100); POTASSIUM SERUM 3.7 MEQ/L (3.5-5.1); SODIUM LEVEL 135 MEQ/L (136-145)
[2017-05-09 08:11] LABS: BEDSIDE GLUCOSE 177 MG/DL (83-110)
[2017-05-09] MEDS: HumaLOG INSULIN (NovoLOG) PER UNIT SC ×4 (08:32→21:00)
[2017-05-09] MEDS ORDERED: SINEMET 25-100 MG TAB PO (09:00)
[2017-05-09] MEDS: ASPIRIN 81 MG ENTERIC TAB PO (10:29)
[2017-05-09] MEDS: DOCUSATE SODIUM 100 MG CAP PO ×2 (10:29→20:11)
[2017-05-09] MEDS: FOLIC ACID 1 MG TAB PO (10:30)
[2017-05-09] MEDS: amLODIPine 10 MG TAB PO (10:30)
[2017-05-09] MEDS: FERROUS SULFATE 325MG TAB PO ×2 (10:30→20:11)
[2017-05-09] MEDS: SINEMET 12.5MG/50MG PER 1/2 TABLET PO ×4 (10:31→20:10)
[2017-05-09] MEDS: SINEMET 25-100 MG TAB PO ×4 (10:31→20:11)
[2017-05-09] MEDS: METOPROLOL TART 12.5 MG PER 1/2 TAB PO ×2 (10:33→20:13)
[2017-05-09] MEDS: PANTOPRAZOLE 20 MG TAB PO (10:33)
[2017-05-09] MEDS: VENLAFAXINE **XR** 75MG CAPSULE PO ×2 (10:34→20:11)
[2017-05-09] MEDS: POTASSIUM CHLORIDE 10 MEQ SR TABLET PO (10:34)
[2017-05-09] MEDS: MEMANTINE 5MG TABLET (NAMENDA) PO ×2 (10:34→20:10)
[2017-05-09 12:24] LABS: BEDSIDE GLUCOSE 147 MG/DL (83-110)
[2017-05-09] MEDS: CEFTRIAXONE SOD 1 GM in APPROPRIATE DILUENT 1 EA IV (17:46)
[2017-05-09 17:55] LABS: BEDSIDE GLUCOSE 129 MG/DL (83-110)
[2017-05-09] MEDS: PRIMIDONE 50 MG TAB PO (20:11)
[2017-05-09] MEDS: ATORVASTATIN 20 MG TAB PO (20:11)
[2017-05-09 21:37] LABS: BEDSIDE GLUCOSE 153 MG/DL (83-110)
[2017-05-10] MEDS: HEPARIN SOD (PORCINE) 5000 UNITS/ML VIAL SC ×3 (05:37→23:58)
[2017-05-10 06:53] LABS: HEMATOCRIT 31.2 % (42.0-52.0); HEMOGLOBIN 10.1 g/dl (14.0-18.0); MEAN CORPUSCULAR HEMOGLOBIN 26.5 pg (27.0-33.0); MEAN CORPUSCULAR HGB CONC 32.4 g/dl (32.0-36.5); MEAN CORPUSCULAR VOLUME 81.9 fl (80.0-96.0); PLATELET COUNT, AUTOMATED 306 10^3/uL (150-450); RED BLOOD COUNT 3.81 10^6/uL (4.30-6.10); RED CELL DISTRIBUTION WIDTH 15.2 % (11.5-14.5); WHITE BLOOD COUNT 9.6 10^3/uL (4.0-10.0)
[2017-05-10 07:09] LABS: ANION GAP 11 MEQ/L (8-16); BLOOD UREA NITROGEN 25 MG/DL (7-18); CALCIUM LEVEL 8.8 MG/DL (8.8-10.2); CARBON DIOXIDE LEVEL 22 MEQ/L (21-32); CHLORIDE LEVEL 100 MEQ/L (98-107); CREATININE FOR GFR 0.99 MG/DL (0.70-1.30); GLOMERULAR FILTRATION RATE > 60.0 (>42); GLUCOSE, FASTING 109 MG/DL (70-100); POTASSIUM SERUM 3.9 MEQ/L (3.5-5.1); SODIUM LEVEL 133 MEQ/L (136-145)
[2017-05-10] MEDS: HumaLOG INSULIN (NovoLOG) PER UNIT SC ×4 (07:30→20:08)
[2017-05-10] MEDS: DOCUSATE SODIUM 100 MG CAP PO ×2 (08:49→20:03)
[2017-05-10] MEDS: SINEMET 25-100 MG TAB PO ×4 (08:49→20:03)
[2017-05-10] MEDS: FOLIC ACID 1 MG TAB PO (08:49)
[2017-05-10] MEDS: amLODIPine 10 MG TAB PO (08:49)
[2017-05-10] MEDS: POTASSIUM CHLORIDE 10 MEQ SR TABLET PO (08:49)
[2017-05-10] MEDS: ASPIRIN 81 MG ENTERIC TAB PO (08:50)
[2017-05-10] MEDS: VENLAFAXINE **XR** 75MG CAPSULE PO ×2 (08:50→20:04)
[2017-05-10] MEDS: PANTOPRAZOLE 20 MG TAB PO (08:50)
[2017-05-10] MEDS: FERROUS SULFATE 325MG TAB PO ×2 (08:50→20:03)
[2017-05-10] MEDS: MEMANTINE 5MG TABLET (NAMENDA) PO ×2 (08:50→20:04)
[2017-05-10] MEDS: METOPROLOL TART 12.5 MG PER 1/2 TAB PO ×2 (08:50→20:07)
[2017-05-10] MEDS: SINEMET 12.5MG/50MG PER 1/2 TABLET PO ×4 (08:51→20:04)
[2017-05-10 12:52] LABS: BEDSIDE GLUCOSE 196 MG/DL (83-110)
[2017-05-10 17:35] LABS: BEDSIDE GLUCOSE 124 MG/DL (83-110)
[2017-05-10] MEDS: CEFTRIAXONE SOD 1 GM in APPROPRIATE DILUENT 1 EA IV (17:35)
[2017-05-10] MEDS: NORTRIPTYLINE 10 MG CAP PO (20:03)
[2017-05-10] MEDS: ATORVASTATIN 20 MG TAB PO (20:03)
[2017-05-10] MEDS: PRIMIDONE 50 MG TAB PO (20:03)
[2017-05-10 20:08] LABS: BEDSIDE GLUCOSE 132 MG/DL (83-110)
[2017-05-11] MEDS: HEPARIN SOD (PORCINE) 5000 UNITS/ML VIAL SC ×3 (05:32→20:44)
[2017-05-11 06:28] LABS: HEMATOCRIT 31.5 % (42.0-52.0); HEMOGLOBIN 10.3 g/dl (14.0-18.0); MEAN CORPUSCULAR HEMOGLOBIN 26.5 pg (27.0-33.0); MEAN CORPUSCULAR HGB CONC 32.7 g/dl (32.0-36.5); MEAN CORPUSCULAR VOLUME 81.2 fl (80.0-96.0); PLATELET COUNT, AUTOMATED 334 10^3/uL (150-450); RED BLOOD COUNT 3.88 10^6/uL (4.30-6.10); RED CELL DISTRIBUTION WIDTH 15.4 % (11.5-14.5); WHITE BLOOD COUNT 9.5 10^3/uL (4.0-10.0)
[2017-05-11 06:45] LABS: ANION GAP 8 MEQ/L (8-16); BLOOD UREA NITROGEN 27 MG/DL (7-18); CALCIUM LEVEL 8.7 MG/DL (8.8-10.2); CARBON DIOXIDE LEVEL 26 MEQ/L (21-32); CHLORIDE LEVEL 99 MEQ/L (98-107); CREATININE FOR GFR 1.11 MG/DL (0.70-1.30); GLOMERULAR FILTRATION RATE > 60.0 (>42); GLUCOSE, FASTING 123 MG/DL (70-100); POTASSIUM SERUM 3.8 MEQ/L (3.5-5.1); SODIUM LEVEL 133 MEQ/L (136-145)
[2017-05-11] MEDS: HumaLOG INSULIN (NovoLOG) PER UNIT SC ×4 (07:30→20:44)
[2017-05-11] MEDS: SINEMET 12.5MG/50MG PER 1/2 TABLET PO ×4 (09:15→19:41)
[2017-05-11] MEDS: MEMANTINE 5MG TABLET (NAMENDA) PO ×2 (09:15→19:41)
[2017-05-11] MEDS: SINEMET 25-100 MG TAB PO ×4 (09:15→19:41)
[2017-05-11] MEDS: VENLAFAXINE **XR** 75MG CAPSULE PO ×2 (09:16→19:41)
[2017-05-11] MEDS: amLODIPine 10 MG TAB PO (09:16)
[2017-05-11] MEDS: METOPROLOL TART 12.5 MG PER 1/2 TAB PO ×2 (09:16→19:43)
[2017-05-11] MEDS: PANTOPRAZOLE 20 MG TAB PO (09:16)
[2017-05-11] MEDS: FERROUS SULFATE 325MG TAB PO ×2 (09:16→19:42)
[2017-05-11] MEDS: ASPIRIN 81 MG ENTERIC TAB PO (09:16)
[2017-05-11] MEDS: DOCUSATE SODIUM 100 MG CAP PO ×2 (09:16→19:41)
[2017-05-11] MEDS: POTASSIUM CHLORIDE 10 MEQ SR TABLET PO (09:16)
[2017-05-11] MEDS: FOLIC ACID 1 MG TAB PO (09:16)
[2017-05-11] MEDS: CEFTRIAXONE SOD 1 GM in APPROPRIATE DILUENT 1 EA IV (17:47)
[2017-05-11] MEDS: ATORVASTATIN 20 MG TAB PO (19:41)
[2017-05-11] MEDS: PRIMIDONE 50 MG TAB PO (19:41)
[2017-05-11] MEDS: NORTRIPTYLINE 10 MG CAP PO (20:45)
[2017-05-11 21:35] LABS: BEDSIDE GLUCOSE 193 MG/DL (83-110)
[2017-05-11 21:35] LABS: BEDSIDE GLUCOSE 145 MG/DL (83-110)
[2017-05-11 21:35] LABS: BEDSIDE GLUCOSE 171 MG/DL (83-110)
[2017-05-12] MEDS: HEPARIN SOD (PORCINE) 5000 UNITS/ML VIAL SC ×3 (05:39→21:19)
[2017-05-12 06:28] LABS: HEMATOCRIT 32.9 % (42.0-52.0); HEMOGLOBIN 10.7 g/dl (14.0-18.0); MEAN CORPUSCULAR HEMOGLOBIN 26.8 pg (27.0-33.0); MEAN CORPUSCULAR HGB CONC 32.5 g/dl (32.0-36.5); MEAN CORPUSCULAR VOLUME 82.5 fl (80.0-96.0); PLATELET COUNT, AUTOMATED 320 10^3/uL (150-450); RED BLOOD COUNT 3.99 10^6/uL (4.30-6.10); RED CELL DISTRIBUTION WIDTH 15.2 % (11.5-14.5)
[2017-05-12 06:50] LABS: ANION GAP 7 MEQ/L (8-16); BLOOD UREA NITROGEN 25 MG/DL (7-18); CALCIUM LEVEL 8.6 MG/DL (8.8-10.2); CARBON DIOXIDE LEVEL 26 MEQ/L (21-32); CHLORIDE LEVEL 102 MEQ/L (98-107); GLOMERULAR FILTRATION RATE > 60.0 (>42); GLUCOSE, FASTING 127 MG/DL (70-100); POTASSIUM SERUM 3.8 MEQ/L (3.5-5.1); SODIUM LEVEL 135 MEQ/L (136-145)
[2017-05-12] MEDS: HumaLOG INSULIN (NovoLOG) PER UNIT SC ×4 (07:30→21:00)
[2017-05-12] MEDS: SINEMET 25-100 MG TAB PO ×4 (08:45→21:20)
[2017-05-12] MEDS: FERROUS SULFATE 325MG TAB PO ×2 (08:45→21:20)
[2017-05-12] MEDS: amLODIPine 10 MG TAB PO (08:45)
[2017-05-12] MEDS: MEMANTINE 5MG TABLET (NAMENDA) PO ×2 (08:46→21:20)
[2017-05-12] MEDS: FOLIC ACID 1 MG TAB PO (08:46)
[2017-05-12] MEDS: POTASSIUM CHLORIDE 10 MEQ SR TABLET PO (08:46)
[2017-05-12] MEDS: SINEMET 12.5MG/50MG PER 1/2 TABLET PO ×4 (08:46→21:20)
[2017-05-12] MEDS: VENLAFAXINE **XR** 75MG CAPSULE PO ×2 (08:46→21:20)
[2017-05-12] MEDS: ASPIRIN 81 MG ENTERIC TAB PO (08:46)
[2017-05-12] MEDS: PANTOPRAZOLE 20 MG TAB PO (08:46)
[2017-05-12] MEDS: DOCUSATE SODIUM 100 MG CAP PO ×2 (08:46→21:20)
[2017-05-12] MEDS: METOPROLOL TART 12.5 MG PER 1/2 TAB PO ×2 (08:46→21:21)
[2017-05-12 13:50] LABS: BEDSIDE GLUCOSE 143 MG/DL (83-110)
[2017-05-12 17:25] LABS: BEDSIDE GLUCOSE 110 MG/DL (83-110)
[2017-05-12] MEDS: CEFTRIAXONE SOD 1 GM in APPROPRIATE DILUENT 1 EA IV (17:30)
[2017-05-12] MEDS: ATORVASTATIN 20 MG TAB PO (21:19)
[2017-05-12] MEDS: PRIMIDONE 50 MG TAB PO (21:20)
[2017-05-12] MEDS: NORTRIPTYLINE 10 MG CAP PO (21:24)
[2017-05-12 22:29] LABS: BEDSIDE GLUCOSE 180 MG/DL (83-110)
[2017-05-13] MEDS: HEPARIN SOD (PORCINE) 5000 UNITS/ML VIAL SC ×3 (05:36→21:11)
[2017-05-13 06:39] LABS: HEMATOCRIT 33.6 % (42.0-52.0); HEMOGLOBIN 10.9 g/dl (14.0-18.0); MEAN CORPUSCULAR HEMOGLOBIN 26.6 pg (27.0-33.0); MEAN CORPUSCULAR HGB CONC 32.4 g/dl (32.0-36.5); PLATELET COUNT, AUTOMATED 333 10^3/uL (150-450); RED CELL DISTRIBUTION WIDTH 15.5 % (11.5-14.5); WHITE BLOOD COUNT 8.5 10^3/uL (4.0-10.0)
[2017-05-13 06:57] LABS: ANION GAP 8 MEQ/L (8-16); BLOOD UREA NITROGEN 23 MG/DL (7-18); CALCIUM LEVEL 8.6 MG/DL (8.8-10.2); CARBON DIOXIDE LEVEL 26 MEQ/L (21-32); CHLORIDE LEVEL 100 MEQ/L (98-107); CREATININE FOR GFR 1.17 MG/DL (0.70-1.30); GLOMERULAR FILTRATION RATE > 60.0 (>42); GLUCOSE, FASTING 134 MG/DL (70-100); POTASSIUM SERUM 4.3 MEQ/L (3.5-5.1); SODIUM LEVEL 134 MEQ/L (136-145)
[2017-05-13] MEDS: MEMANTINE 5MG TABLET (NAMENDA) PO ×2 (08:07→21:11)
[2017-05-13] MEDS: FOLIC ACID 1 MG TAB PO (08:08)
[2017-05-13] MEDS: ASPIRIN 81 MG ENTERIC TAB PO (08:08)
[2017-05-13] MEDS: POTASSIUM CHLORIDE 10 MEQ SR TABLET PO (08:08)
[2017-05-13] MEDS: METOPROLOL TART 12.5 MG PER 1/2 TAB PO ×2 (08:08→21:12)
[2017-05-13] MEDS: VENLAFAXINE **XR** 75MG CAPSULE PO ×2 (08:09→21:11)
[2017-05-13] MEDS: PANTOPRAZOLE 20 MG TAB PO (08:09)
[2017-05-13] MEDS: amLODIPine 10 MG TAB PO (08:09)
[2017-05-13] MEDS: DOCUSATE SODIUM 100 MG CAP PO ×2 (08:09→21:11)
[2017-05-13] MEDS: SINEMET 25-100 MG TAB PO ×4 (08:09→21:11)
[2017-05-13] MEDS: FERROUS SULFATE 325MG TAB PO ×2 (08:09→21:11)
[2017-05-13] MEDS: SINEMET 12.5MG/50MG PER 1/2 TABLET PO ×4 (08:10→21:12)
[2017-05-13] MEDS: HumaLOG INSULIN (NovoLOG) PER UNIT SC ×4 (08:11→21:00)
[2017-05-13] MEDS: MUPIROCIN 2% OINT 22 GM TUBE TOP ×2 (09:00→21:13)
[2017-05-13] MEDS: CEFTRIAXONE SOD 1 GM in APPROPRIATE DILUENT 1 EA IV (17:33)
[2017-05-13] MEDS: NORTRIPTYLINE 10 MG CAP PO (21:11)
[2017-05-13] MEDS: ATORVASTATIN 20 MG TAB PO (21:11)
[2017-05-13] MEDS: PRIMIDONE 50 MG TAB PO (21:12)
[2017-05-14] MEDS: HEPARIN SOD (PORCINE) 5000 UNITS/ML VIAL SC (05:52)
[2017-05-14 06:45] LABS: HEMATOCRIT 33.1 % (42.0-52.0); HEMOGLOBIN 10.7 g/dl (14.0-18.0); MEAN CORPUSCULAR HEMOGLOBIN 26.8 pg (27.0-33.0); MEAN CORPUSCULAR HGB CONC 32.3 g/dl (32.0-36.5); MEAN CORPUSCULAR VOLUME 82.8 fl (80.0-96.0); PLATELET COUNT, AUTOMATED 334 10^3/uL (150-450); RED CELL DISTRIBUTION WIDTH 15.4 % (11.5-14.5)
[2017-05-14 07:01] LABS: ANION GAP 8 MEQ/L (8-16); BLOOD UREA NITROGEN 25 MG/DL (7-18); CALCIUM LEVEL 8.6 MG/DL (8.8-10.2); CARBON DIOXIDE LEVEL 25 MEQ/L (21-32); CHLORIDE LEVEL 100 MEQ/L (98-107); CREATININE FOR GFR 1.16 MG/DL (0.70-1.30); GLOMERULAR FILTRATION RATE > 60.0 (>42); GLUCOSE, FASTING 136 MG/DL (70-100); POTASSIUM SERUM 4.3 MEQ/L (3.5-5.1); SODIUM LEVEL 133 MEQ/L (136-145)
[2017-05-14] MEDS: HumaLOG INSULIN (NovoLOG) PER UNIT SC (08:41)
[2017-05-14] MEDS: ASPIRIN 81 MG ENTERIC TAB PO (09:21)
[2017-05-14] MEDS: FOLIC ACID 1 MG TAB PO (09:21)
[2017-05-14] MEDS: SINEMET 12.5MG/50MG PER 1/2 TABLET PO (09:21)
[2017-05-14] MEDS: METOPROLOL TART 12.5 MG PER 1/2 TAB PO (09:22)
[2017-05-14] MEDS: VENLAFAXINE **XR** 75MG CAPSULE PO (09:22)
[2017-05-14] MEDS: SINEMET 25-100 MG TAB PO (09:24)
[2017-05-14] MEDS: FERROUS SULFATE 325MG TAB PO (09:25)
[2017-05-14] MEDS: amLODIPine 10 MG TAB PO (09:25)
[2017-05-14] MEDS: MEMANTINE 5MG TABLET (NAMENDA) PO (09:25)
[2017-05-14] MEDS: POTASSIUM CHLORIDE 10 MEQ SR TABLET PO (09:26)
[2017-05-14] MEDS: DOCUSATE SODIUM 100 MG CAP PO (09:26)
[2017-05-14] MEDS: PANTOPRAZOLE 20 MG TAB PO (09:27)
[2017-05-14] MEDS: MUPIROCIN 2% OINT 22 GM TUBE TOP (09:28)
[2017-05-17 12:13] LABS: BEDSIDE GLUCOSE 155 MG/DL (83-110)
[2017-05-17 12:13] LABS: BEDSIDE GLUCOSE 218 MG/DL (83-110)
[2017-05-17 12:13] LABS: BEDSIDE GLUCOSE 80 MG/DL (83-110)
== END 2017-05-14 09:45 | DRG 698 ==
LOC: M MS5PR 05-09 13:57 → M ED 14:04 → M ED INP 18:52
DX: T83.511A Infection and inflammatory reaction due to indwelling urethral catheter, initial encounter (principal); G93.41 Metabolic encephalopathy; G31.83 Neurocognitive disorder with Lewy bodies; E11.9 Type 2 diabetes mellitus without complications; I10 Essential (primary) hypertension; F32.9 Major depressive disorder, single episode, unspecified; F02.80 Dementia in other diseases classified elsewhere, unspecified severity, without behavioral disturbance, psychotic disturbance, mood disturbance, and anxiety; R33.9 Retention of urine, unspecified; I48.2 Chronic atrial fibrillation; I71.4 Abdominal aortic aneurysm, without rupture; B96.1 Klebsiella pneumoniae [K. pneumoniae] as the cause of diseases classified elsewhere; B95.2 Enterococcus as the cause of diseases classified elsewhere; N39.0 Urinary tract infection, site not specified; Y84.6 Urinary catheterization as the cause of abnormal reaction of the patient, or of later complication, without mention of misadventure at the time of the procedure; Z79.82 Long term (current) use of aspirin; Z79.899 Other long term (current) drug therapy